=== PATIENT | male | born 1940 | race Caucasian/White ===

== ENCOUNTER 2020-11-04 09:22 | Emergency (ER) | payer MEDICARE, BC ==
--- NOTE | 2020-11-04 09:55 | ED ---
General Adult HPI - General Chief complaint: ENT Stated complaint: sore in throat/congestion Time Seen by Provider: 11/04/20 09:40 Source: patient, family, RN notes reviewed Mode of arrival: wheelchair Limitations: physical limitation - History of Present Illness Initial comments: Patient's an 79-year-old male presented to the emergency room today with chief complaint of possible infection to his tongue. Patient does admit that yesterday he noticed some soreness and tenderness to the right back of his tongue. Patient states that it's very tender with trying to eat breakfast this morning. He felt that he could not eat his meal because the pain. He has not the pains improved. Patient states isn't been able tolerate secretions. He does have a history of a lot of phlegm it's produced and does use machine at home helps. Patient states he did use at this morning which did give him some relief. He denies any complaints or symptoms currently. - Related Data Previous Rx's Medication Instructions Recorded Amoxicillin/Potassium Clav 1 each PO Q12HR #20 tab 11/04/20 [Augmentin 875-125 Tablet] Allergies Allergy/AdvReac Type Severity Reaction Status Date / Time No Known Allergies Allergy Verified 11/04/20 09:31 Review of Systems ROS Statement: Those systems with pertinent positive or pertinent negative responses have been documented in the HPI. ROS Other: All systems not noted in ROS Statement are negative. Past Medical History Past Medical History: COPD Additional Past Medical History / Comment(s): mesothelioma History of Any Multi-Drug Resistant Organisms: None Reported Past Surgical History: Adenoidectomy, Tonsillectomy Additional Past Surgical History / Comment(s): lobectomy Past Psychological History: No Psychological Hx Reported Smoking Status: Current every day smoker Past Alcohol Use History: None Reported Past Drug Use History: None Reported General Exam - General Exam Comments Initial Comments: General: The patient is awake and alert, in no distress, and does not appear acutely ill. Eye: extra-ocular movements are intact. There is normal conjunctiva bilaterally. No signs of icterus. Ears, nose, mouth and throat: There are moist mucous membranes. Patient does have an area of redness to the right posterior aspect of the tongue. Does have tenderness to palpate the area. Is soft. Tolerates oral secretions. Neck: The neck is supple Cardiovascular: There is a regular rate and rhythm. No murmur, rub or gallop is appreciated. Respiratory: Decreased lung sounds. Musculoskeletal: Normal ROM, no tenderness. Strength 5/5. Sensation intact. Neurological: A&O x 3. CN II-XII intact, There are no obvious motor or sensory deficits. Coordination appears grossly intact. Speech is normal. Skin: Skin is warm and dry and no rashes or lesions are noted. Psychiatric: Cooperative, appropriate mood & affect, normal judgment. Limitations: physical limitation Course Vital Signs 11/04/20 11/04/20 11/04/20 09:25 10:37 10:47 Temperature 98.9 F Pulse Rate 90 80 84 Respiratory 20 Rate Blood Pressure 129/70 O2 Sat by Pulse 91 L Oximetry Medical Decision Making - Medical Decision Making Patient reexamined his resting comfortable. Patient denies any increased shortness breath. He states he does have breathing treatments and oxygen at home. Patient was concerned about the pain to the right side of the tongue. There is no significant swelling. There is small red spot that is tender palpation. Patient does admit that symptoms have improved since this morning. Was discussed about starting antibiotic. Was discussed about admission. He has declined. Patient will be started on antibiotics advised close follow-up the family doctor the next 2 days. He is advised return if any symptoms increase or worsen or fail concerns. He states understanding and is. Disposition Clinical Impression: Tongue infection Disposition: HOME SELF-CARE Condition: Good Instructions (If sedation given, give patient instructions): Dental Abscess (ED) Additional Instructions: Please use medication as discussed. Please follow-up with family doctor in the next 2 days . Please return to emergency room if the symptoms increase or worsen or for any other concerns. Prescriptions: Amoxicillin/Potassium Clav [Augmentin 875-125 Tablet] 1 each PO Q12HR #20 tab Is patient prescribed a controlled substance at d/c from ED?: No Referrals: Jewell Zamora MD [Primary Care Provider] - 1-2 days Time of Disposition: 11:14
[2020-11-04] MEDS ORDERED: IPRATROPIUM-ALBUTEROL 3 ML NEB INHALATION STA (10:15)
--- NOTE | 2020-11-04 10:39 | XR ---
EXAMINATION TYPE: XR chest 2V DATE OF EXAM: 11/04/2020 COMPARISON: 09/14/2012 HISTORY: Shortness of breath TECHNIQUE: Frontal and lateral views of the chest are obtained. FINDINGS: Scattered senescent parenchymal changes noted. Hyperinflation compatible with COPD. No evidence for infiltrate. No evidence for atelectasis. Calcified pleural plaques are seen bilateral ly. Heart size is stable. Mediastinal structures are stable and grossly unremarkable. No evidence for hilar prominence. Degenerative changes dorsal spine. IMPRESSION: 1. No evidence for acute pulmonary disease.
[2020-11-04 11:29] VITALS: BP 128/78; PULSE 97; RESP 18; TEMP 98.7
== END 2020-11-04 11:28 | disposition home or self-care (01) ==
LOC: EC 09:22
DX: K14.0 Glossitis (principal); F17.200 Nicotine dependence, unspecified, uncomplicated
CPT/HCPCS: 71046; 94640; 99283

== ENCOUNTER 2020-12-03 10:09 | Inpatient (IN) | payer MEDICARE, BC ==
[2020-12-03 10:35] LABS: Glucose,Whole Blood 156 mg/dL (75-99)
--- NOTE | 2020-12-03 10:35 | ED ---
General Adult HPI - General Chief complaint: Neuro Symptoms/Deficit Stated complaint: trouble walking/falls/confusion Time Seen by Provider: 12/03/20 10:22 Source: family Mode of arrival: wheelchair Limitations: physical limitation - History of Present Illness Initial comments: Dictation was produced using [employer] dictation software. please excuse any grammatical, word or spelling errors. This patient was cared for during a federal and state declared state of emergency secondary to Covid 19 Chief Complaint: 80-year-old male past medical history of COPD and mesothelioma presents with worsening weakness, frequent falls and altered mental status History of Present Illness: 80-year-old male he lives at home with his was also advanced in age. Patient has history of COPD. at bedside provides history of present illness. She states that over the last 1-2 weeks has been having worsening generalized weakness, altered mental status and confusion. She describes it as difficulties perform his activities of daily living. Patient has also been having difficulties urinating. Patient states that his primary complaint is generalized weakness. Does not have any formal diagnosis of dementia. knows that one example of his confusion is he would get up to go to his office at 3 AM in the morning which she doesn't normally do until 6 in the morning. reports that he fell recently and was found to bathroom on th e ground. The ROS documented in this emergency department record has been reviewed and confirmed by me. Those systems with pertinent positive or negative responses have been documented in the HPI. All other systems are other negative and/or noncontributory. PHYSICAL EXAM: General Impression: Alert and oriented x3, not in acute distress HEENT: Normocephalic atraumatic, extra-ocular movements intact, pupils equal and reactive to light bilaterally, mucous membranes moist. Cardiovascular: Heart regular rate and rhythm Chest: Able to complete full sentences, no retractions, no tachypnea Abdomen: abdomen soft, non-tender, non-distended, no organomegaly Musculoskeletal: Pulses present and equal in all extremities, no peripheral edema Motor: no focal deficits noted Neurological: CN II-XII grossly intact, no focal motor or sensory deficits noted Skin: Intact with no visualized rashes Psych: Normal affect and mood ED course:80-year-old male presents with generalized weakness, dizziness, urinary difficulties frequent falls. Vital signs upon arrival shows her to 112, rest of vital signs within acceptable limits. Patient was unable to urinate. Bladder scan shows 720 mL of urine. Richarsd catheter was placed. For urinary retention. Laboratory evaluation obtained. Mild leukocytosis of 11.1, hemoglobin of 11.6. Coag panel is negative. Metabolic panel shows sodium 153, elevated renal markers which appear to be baseline. Rest of labs unremarkable. Urinalysis negative. Coronal virus is negative computed tomography scan of the brain pelvis and chest x-ray shows no acute processes. I believe patient's symptoms are secondary to dehydration. Given the patient's a symptomatic I'll have him admitted. Case was discussed with Dr. Dr. Serrano willing to accept patients care. And had a Richards placed. Urology will be consulted. EKG interpretation: Ventricular rate 103, sinus tachycardia, RI interval 136, QRS 82, QTC 419. No RI prolongation, no QTC prolongation, no ST or T-wave changes noted. . Overall, this EKG is unremarkable - Related Data Home Medications Medication Instructions Recorded Confirmed Albuterol Nebulized [Ventolin 2.5 mg INHALATION RT-QID PRN 12/03/20 12/03/20 Nebulized] Budesonide/Formoterol Fumarate 2 puff INHALATION RT-BID 12/03/20 12/03/20 [Symbicort 160-4.5 Mcg Inhaler] Furosemide [Lasix] 40 mg PO BID 12/03/20 12/03/20 Glycopyrrolate/Neb.accessories 25 mcg INHALATION RT-BID 12/03/20 12/03/20 [[place]a Magnair 25 Mcg Refill] Ipratropium Nebulized [Atrovent 0.5 mg INHALATION RT-QID PRN 12/03/20 12/03/20 Nebulized 0.2 MG/ML] Ipratropium/Albuter 20-100Mcg 1 puff INHALATION RT-QID PRN 12/03/20 12/03/20 [Combivent Respimat 20-100Mcg Inhaler] Latanoprost [Xalatan 0.005%] 1 drop BOTH EYES HS 12/03/20 12/03/20 Losartan-Hctz 50-12.5 mg [Hyzaar 1 tab PO DAILY 12/03/20 12/03/20 50-12.5] Potassium Chloride ER [K-Dur 20] 20 meq PO BID 12/03/20 12/03/20 Tamsulosin HCl [Flomax] 0.4 mg PO DAILY 12/03/20 12/03/20 Tiotropium [place] [Spiriva] 1 cap INHALATION RT-DAILY 12/03/20 12/03/20 Vit C/E/Zn/Coppr/Lutein/Zeaxan 1 cap PO DAILY 12/03/20 12/03/20 [Preservision Areds 2 Softgel] Allergies Allergy/AdvReac Type Severity Reaction Status Date / Time No Known Allergies Allergy Verified 12/03/20 11:42 Review of Systems ROS Statement: Those systems with pertinent positive or pertinent negative responses have been documented in the HPI. ROS Other: All systems not noted in ROS Statement are negative. Past Medical History Past Medical History: COPD Additional Past Medical History / Comment(s): mesothelioma History of Any Multi-Drug Resistant Organisms: None Reported Past Surgical History: Adenoidectomy, Tonsillectomy Additional Past Surgical History / Comment(s): lobectomy Past Psychological History: No Psychological Hx Reported Smoking Status: Current every day smoker Past Alcohol Use History: None Reported Past Drug Use History: None Reported General Exam Limitations: physical limitation Course Vital Signs 12/03/20 12/03/20 12/03/20 10:11 11:27 12:00 Temperature 98.4 F Pulse Rate 112 H 96 96 Respiratory 20 18 18 Rate Blood Pressure 116/68 112/71 116/73 O2 Sat by Pulse 96 100 100 Oximetry Medical Decision Making - Lab Data Result diagrams: 12/03/20 10:37 12/03/20 10:37 Lab Results 12/03/20 12/03/20 12/03/20 Range/Units 10:24 10:37 10:37 WBC 11.1 H (3.8-10.6) k/uL RBC 3.76 L (4.30-5.90) m/uL Hgb 11.6 L (13.0-17.5) gm/dL Hct 36.9 L (39.0-53.0) % MCV 98.2 (80.0-100.0) fL MCH 31.0 (25.0-35.0) pg MCHC 31.5 (31.0-37.0) g/dL RDW 13.9 (11.5-15.5) % Plt Count 168 (150-450) k/uL MPV 9.1 Neutrophils % 84 % Lymphocytes % 9 % Monocytes % 5 % Eosinophils % 0 % Basophils % 0 % Neutrophils # 9.4 H (1.3-7.7) k/uL Lymphocytes # 1.1 (1.0-4.8) k/uL Monocytes # 0.5 (0-1.0) k/uL Eosinophils # 0.0 (0-0.7) k/uL Basophils # 0.0 (0-0.2) k/uL PT (9.0-12.0) sec INR (<1.2) APTT (22.0-30.0) sec Sodium 153 H (137-145) mmol/L Potassium 4.2 (3.5-5.1) mmol/L Chloride 114 H (98-107) mmol/L Carbon Dioxide 32 H (22-30) mmol/L Anion Gap 7 mmol/L BUN 40 H (9-20) mg/dL Creatinine 1.94 H (0.66-1.25) mg/dL Est GFR (CKD-EPI)AfAm 36 (>60 ml/min/1.73 sqM) Est GFR (CKD-EPI)NonAf 31 (>60 ml/min/1.73 sqM) Glucose 143 H (74-99) mg/dL POC Glucose (mg/dL) 156 H (75-99) mg/dL POC Glu Rail Operator ID Mohinder Johnson Plasma Lactic Acid Adal (0.7-2.0) mmol/L Calcium 8.9 (8.4-10.2) mg/dL Magnesium 2.9 H (1.6-2.3) mg/dL Total Bilirubin 0.5 (0.2-1.3) mg/dL AST 24 (17-59) U/L ALT 19 (4-49) U/L Alkaline Phosphatase 62 (38-126) U/L Ammonia (<30) umol/L Troponin I (0.000-0.034) ng/mL Total Protein 6.4 (6.3-8.2) g/dL Albumin 3.8 (3.5-5.0) g/dL Urine Color Urine Appearance (Clear) Urine pH (5.0-8.0) Ur Specific [place] (1.001-1.035) Urine Protein (Negative) Urine Glucose (UA) (Negative) Urine Ketones (Negative) Urine Blood (Negative) Urine Nitrite (Negative) Urine Bilirubin (Negative) Urine Urobilinogen (<2.0) mg/dL Ur Leukocyte Esterase (Negative) Coronavirus (PCR) (Not Detectd) 12/03/20 12/03/20 12/03/20 Range/Units 10:37 10:37 10:45 WBC (3.8-10.6) k/uL RBC (4.30-5.90) m/uL Hgb (13.0-17.5) gm/dL Hct (39.0-53.0) % MCV (80.0-100.0) fL MCH (25.0-35.0) pg MCHC (31.0-37.0) g/dL RDW (11.5-15.5) % Plt Count (150-450) k/uL MPV Neutrophils % % Lymphocytes % % Monocytes % % Eosinophils % % Basophils % % Neutrophils # (1.3-7.7) k/uL Lymphocytes # (1.0-4.8) k/uL Monocytes # (0-1.0) k/uL Eosinophils # (0-0.7) k/uL Basophils # (0-0.2) k/uL PT (9.0-12.0) sec INR (<1.2) APTT (22.0-30.0) sec Sodium (137-145) mmol/L Potassium (3.5-5.1) mmol/L Chloride (98-107) mmol/L Carbon Dioxide (22-30) mmol/L Anion Gap mmol/L BUN (9-20) mg/dL Creatinine (0.66-1.25) mg/dL Est GFR (CKD-EPI)AfAm (>60 ml/min/1.73 sqM) Est GFR (CKD-EPI)NonAf (>60 ml/min/1.73 sqM) Glucose (74-99) mg/dL POC Glucose (mg/dL) (75-99) mg/dL POC Glu Rail Operator ID Plasma Lactic Acid Adal 1.3 (0.7-2.0) mmol/L Calcium (8.4-10.2) mg/dL Magnesium (1.6-2.3) mg/dL Total Bilirubin (0.2-1.3) mg/dL AST (17-59) U/L ALT (4-49) U/L Alkaline Phosphatase (38-126) U/L Ammonia <9 (<30) umol/L Troponin I 0.030 (0.000-0.034) ng/mL Total Protein (6.3-8.2) g/dL Albumin (3.5-5.0) g/dL Urine Color Light Yellow Urine Appearance Clear (Clear) Urine pH 5.0 (5.0-8.0) Ur Specific [place] 1.011 (1.001-1.035) Urine Protein Negative (Negative) Urine Glucose (UA) Negative (Negative) Urine Ketones Negative (Negative) Urine Blood Negative (Negative) Urine Nitrite Negative (Negative) Urine Bilirubin Negative (Negative) Urine Urobilinogen <2.0 (<2.0) mg/dL Ur Leukocyte Esterase Negative (Negative) Coronavirus (PCR) (Not Detectd) 12/03/20 12/03/20 Range/Units 11:11 11:29 WBC (3.8-10.6) k/uL RBC (4.30-5.90) m/uL Hgb (13.0-17.5) gm/dL Hct (39.0-53.0) % MCV (80.0-100.0) fL MCH (25.0-35.0) pg MCHC (31.0-37.0) g/dL RDW (11.5-15.5) % Plt Count (150-450) k/uL MPV Neutrophils % % Lymphocytes % % Monocytes % % Eosinophils % % Basophils % % Neutrophils # (1.3-7.7) k/uL Lymphocytes # (1.0-4.8) k/uL Monocytes # (0-1.0) k/uL Eosinophils # (0-0.7) k/uL Basophils # (0-0.2) k/uL PT 10.2 (9.0-12.0) sec INR 0.9 (<1.2) APTT 24.0 (22.0-30.0) sec Sodium (137-145) mmol/L Potassium (3.5-5.1) mmol/L Chloride (98-107) mmol/L Carbon Dioxide (22-30) mmol/L Anion Gap mmol/L BUN (9-20) mg/dL Creatinine (0.66-1.25) mg/dL Est GFR (CKD-EPI)AfAm (>60 ml/min/1.73 sqM) Est GFR (CKD-EPI)NonAf (>60 ml/min/1.73 sqM) Glucose (74-99) mg/dL POC Glucose (mg/dL) (75-99) mg/dL POC Glu Rail Operator ID Plasma Lactic Acid Adal (0.7-2.0) mmol/L Calcium (8.4-10.2) mg/dL Magnesium (1.6-2.3) mg/dL Total Bilirubin (0.2-1.3) mg/dL AST (17-59) U/L ALT (4-49) U/L Alkaline Phosphatase (38-126) U/L Ammonia (<30) umol/L Troponin I (0.000-0.034) ng/mL Total Protein (6.3-8.2) g/dL Albumin (3.5-5.0) g/dL Urine Color Urine Appearance (Clear) Urine pH (5.0-8.0) Ur Specific [place] (1.001-1.035) Urine Protein (Negative) Urine Glucose (UA) (Negative) Urine Ketones (Negative) Urine Blood (Negative) Urine Nitrite (Negative) Urine Bilirubin (Negative) Urine Urobilinogen (<2.0) mg/dL Ur Leukocyte Esterase (Negative) Coronavirus (PCR) Not Detected (Not Detectd) Disposition Clinical Impression: Hypernatremia, Dehydration, Urinary retention Disposition: ADMITTED IP TO THIS [facility] Condition: Fair Referrals: Jewell Zamora MD [Primary Care Provider] - 1-2 days Decision Time: 12:35
[2020-12-03 11:04] LABS: Appearance,Urine Clear (Clear); Bilirubin,Urine Negative (Negative); Blood,Urine Negative (Negative); Color,Urine Light Yellow; Glucose,Urine (UA) Negative (Negative); Ketones,Urine Negative (Negative); Leukocyte Esterase,Urine Negative (Negative); Nitrite,Urine Negative (Negative); Protein,Urine Negative (Negative); Specific Gravity,Urine 1.011 (1.001-1.035); Urobilinogen,Urine <2.0 mg/dL (<2.0)
[2020-12-03 11:08] LABS: Basophils % (A) 0 %; Eosinophils % (A) 0 %; HCT 36.9 % (39.0-53.0); HGB 11.6 gm/dL (13.0-17.5); Lymphocytes # (A) 1.1 k/uL (1.0-4.8); Lymphocytes % (A) 9 %; MCHC 31.5 g/dL (31.0-37.0); MCV 98.2 fL (80.0-100.0); Mean Platelet Volume 9.1; Monocytes # (A) 0.5 k/uL (0-1.0); Monocytes % (A) 5 %; Neutrophils # (A) 9.4 k/uL (1.3-7.7); Neutrophils % (A) 84 %; Platelet Count 168 k/uL (150-450); RBC 3.76 m/uL (4.30-5.90); RDW 13.9 % (11.5-15.5); WBC 11.1 k/uL (3.8-10.6)
[2020-12-03 11:13] LABS: INR 0.9 (<1.2); Prothrombin Time 10.2 sec (9.0-12.0)
[2020-12-03 11:17] LABS: Lactic Acid, Venous 1.3 mmol/L (0.7-2.0)
[2020-12-03 11:18] LABS: Albumin 3.8 g/dL (3.5-5.0); Calcium 8.9 mg/dL (8.4-10.2); Magnesium 2.9 mg/dL (1.6-2.3); Potassium 4.2 mmol/L (3.5-5.1); Total Bilirubin 0.5 mg/dL (0.2-1.3); Total Protein 6.4 g/dL (6.3-8.2)
--- NOTE | 2020-12-03 11:28 | XR ---
EXAMINATION TYPE: XR chest 1V portable DATE OF EXAM: 12/03/2020 COMPARISON: Chest x-ray November 04, 2020 HISTORY: Fall injury with pain. TECHNIQUE: Single frontal view of the chest is obtained. FINDINGS: Background chronic parenchymal and pulmonary fibrotic changes along with calcified pleural plaques. There is persistent small left pleural effusion or pleural thickening. Background bilateral central calcified nodules or granulomas. Background left hilar surgical clips along with left-sided volume loss and mediastinal shift. No new focal airspace opacity pneumothorax clearly seen. The cardi ac silhouette size is stable and upper limits of normal with atherosclerotic aorta. The osseous str uctures are intact. Azygos lobe/fissure is redemonstrated. IMPRESSION: Chronic changes as detailed above without new acute pulmonary process. No significant ch mary from prior.
[2020-12-03] MEDS ORDERED: SODIUM CHLORIDE 0.9% 1,000 ML IV STA ×2 (11:36)
--- NOTE | 2020-12-03 11:37 | XR ---
EXAMINATION TYPE: XR pelvis AP view DATE OF EXAM: 12/03/2020 CLINICAL HISTORY: Frequent falls with pain TECHNIQUE: A single AP view of the pelvis is obtained. COMPARISON: None. FINDINGS: Osseous structures are demineralized which is noted to lower radiographic sensitivity. In addition there is prominence of fecal material overlying the pelvis making evaluation suboptimal. Pat ient has also rotated making evaluation suboptimal. There is no acute displaced fracture clearly evid ent in the pelvis. The pubic symphysis is intact. Asymmetric severe left hip axial joint space loss w ith sclerosis in the femoral head. Sacroiliac joints are likely within normal limits. Overlying vascu lar calcification phleboliths noted. IMPRESSION: There is no acute displaced fractures clearly evident in the pelvis.
--- NOTE | 2020-12-03 11:57 | CT ---
EXAMINATION TYPE: CT brain nathalia rodriguez DATE OF EXAM: 12/03/2020 COMPARISON: None HISTORY: frequent falls, ams CT DLP: 1349.1 mGycm Automated exposure control for dose reduction was used. TECHNIQUE: CT scan of the head and cervical spine are performed without contrast. FINDINGS: There is no acute intracranial hemorrhage, mass effect, or midline shift identified. The ventricles and sulci are within normal limits in size. There are cerebral vascular calcifications. C ortical atrophy is noted. Periventricular white matter shows patchy low attenuation, focus of low-att enuation present in the left elva suspicious for encephalomalacia, axial image #10. The globes are i ntact and the visualized sinuses are clear. Cervical spine is visualized in its entirety from C1 through upper thoracic levels and demonstrates a nterolisthesis grade 1 C4-5, retrolisthesis grade 1 C5-6 and anterior listhesis grade 1 C7-T1 without evidence of acute fracture or dislocation. Prevertebral soft tissue appears within normal limits. T here is a spinal curvature. There is multilevel facet arthropathy, foraminal encroachment, patient is kyphotic. Multilevel spondylosis with loss of disc height present at intervertebral levels is noted. The C1-C2 articulation is unremarkable. Apical emphysema noted. IMPRESSION: 1. There is no acute fracture or dislocation evident in the cervical spine. 2. No acute intracranial hemorrhage, mass effect, or midline shift is seen.
[2020-12-03] MEDS ORDERED: NALOXONE 0.4 MG/ML 1 ML VIAL IV PRN (12:32)
[2020-12-03] MEDS ORDERED: ONDANSETRON 4 MG/2 ML VIAL IVP PRN (12:32)
[2020-12-03] MEDS ORDERED: ALBUTEROL NEBULIZED 2.5 MG/3 ML INHALATION PRN (14:04)
--- NOTE | 2020-12-03 15:25 | P.GSCN ---
History of Present Illness Consult date: 12/03/20 History of present illness: The patient is 80. He is a retired builder. He has COPD and mesothelioma. Apparently he came in the hospital for weakness. He is found to have hypernatremia. He also is in urine retention. We are asked see the patient. The patient's interviewed at the bedside with his at present. The patient for the last several months has been having problems with urinary frequency. He sleeps in a chair. Apparently he has been on tamsulosin but has not been taking. He has no other urologic history. He has an indwelling catheter with clear urine. Review of Systems ROS unobtainable: due to mental status Past Medical History Past Medical History: COPD, Prostate Disorder Additional Past Medical History / Comment(s): mesothelioma History of Any Multi-Drug Resistant Organisms: None Reported Past Surgical History: Adenoidectomy, Tonsillectomy Additional Past Surgical History / Comment(s): lobectomy Past Psychological History: No Psychological Hx Reported Smoking Status: Current every day smoker Past Alcohol Use History: None Reported Past Drug Use History: None Reported Medications and Allergies Home Medications Medication Instructions Recorded Confirmed Type Albuterol Nebulized [Ventolin 2.5 mg INHALATION RT-QID PRN 12/03/20 12/03/20 History Nebulized] Budesonide/Formoterol Fumarate 2 puff INHALATION RT-BID 12/03/20 12/03/20 History [Symbicort 160-4.5 Mcg Inhaler] Furosemide [Lasix] 40 mg PO BID 12/03/20 12/03/20 History Glycopyrrolate/Neb.accessories 25 mcg INHALATION RT-BID 12/03/20 12/03/20 History [Lonhala Magnair 25 Mcg Refill] Ipratropium Nebulized [Atrovent 0.5 mg INHALATION RT-QID PRN 12/03/20 12/03/20 History Nebulized 0.2 MG/ML] Ipratropium/Albuter 20-100Mcg 1 puff INHALATION RT-QID PRN 12/03/20 12/03/20 History [Combivent Respimat 20-100Mcg Inhaler] Latanoprost [Xalatan 0.005%] 1 drop BOTH EYES HS 12/03/20 12/03/20 History Losartan-Hctz 50-12.5 mg [Hyzaar 1 tab PO DAILY 12/03/20 12/03/20 History 50-12.5] Potassium Chloride ER [K-Dur 20] 20 meq PO BID 12/03/20 12/03/20 History Tamsulosin HCl [Flomax] 0.4 mg PO DAILY 12/03/20 12/03/20 History Tiotropium [place] [Spiriva] 1 cap INHALATION RT-DAILY 12/03/20 12/03/20 History Vit C/E/Zn/Coppr/Lutein/Zeaxan 1 cap PO DAILY 12/03/20 12/03/20 History [Preservision Areds 2 Softgel] Allergies Allergy/AdvReac Type Severity Reaction Status Date / Time No Known Allergies Allergy Verified 12/03/20 11:42 Surgical - Exam Vital Signs Temp Pulse Resp BP Pulse Ox 98.4 F 112 H 20 116/68 96 12/03/20 10:11 12/03/20 10:11 12/03/20 10:11 12/03/20 10:11 12/03/20 10:11 - General well developed, chronically ill - Eyes PERRL - ENT no hearing loss - Neck trachea midline - Respiratory normal expansion, normal respiratory effort - Cardiovascular Rhythm: regular - Abdomen Abdomen: soft, non tender - Genitourinary Indwelling catheter with clear urine, 30 g benign prostate normal penis with no external lesions, testicles present - Integumentary no rash, no growths - Neurologic normal coordination, normal sensation, memory loss - Musculoskeletal normal posture - Psychiatric oriented to person, oriented to place Results - Labs 12/03/20 10:37 12/03/20 10:37 Abnormal Lab Results - Last 24 Hours (Table) 12/03/20 12/03/20 12/03/20 Range/Units 10:24 10:37 10:37 WBC 11.1 H (3.8-10.6) k/uL RBC 3.76 L (4.30-5.90) m/uL Hgb 11.6 L (13.0-17.5) gm/dL Hct 36.9 L (39.0-53.0) % Neutrophils # 9.4 H (1.3-7.7) k/uL Sodium 153 H (137-145) mmol/L Chloride 114 H (98-107) mmol/L Carbon Dioxide 32 H (22-30) mmol/L BUN 40 H (9-20) mg/dL Creatinine 1.94 H (0.66-1.25) mg/dL Glucose 143 H (74-99) mg/dL POC Glucose (mg/dL) 156 H (75-99) mg/dL Magnesium 2.9 H (1.6-2.3) mg/dL Diabetes panel 12/03/20 Range/Units 10:37 Sodium 153 H (137-145) mmol/L Potassium 4.2 (3.5-5.1) mmol/L Chloride 114 H (98-107) mmol/L Carbon Dioxide 32 H (22-30) mmol/L BUN 40 H (9-20) mg/dL Creatinine 1.94 H (0.66-1.25) mg/dL Glucose 143 H (74-99) mg/dL Calcium 8.9 (8.4-10.2) mg/dL AST 24 (17-59) U/L ALT 19 (4-49) U/L Alkaline Phosphatase 62 (38-126) U/L Total Protein 6.4 (6.3-8.2) g/dL Albumin 3.8 (3.5-5.0) g/dL Calcium panel 12/03/20 Range/Units 10:37 Calcium 8.9 (8.4-10.2) mg/dL Albumin 3.8 (3.5-5.0) g/dL Pituitary panel 12/03/20 Range/Units 10:37 Sodium 153 H (137-145) mmol/L Potassium 4.2 (3.5-5.1) mmol/L Chloride 114 H (98-107) mmol/L Carbon Dioxide 32 H (22-30) mmol/L BUN 40 H (9-20) mg/dL Creatinine 1.94 H (0.66-1.25) mg/dL Glucose 143 H (74-99) mg/dL Calcium 8.9 (8.4-10.2) mg/dL Adrenal panel 12/03/20 Range/Units 10:37 Sodium 153 H (137-145) mmol/L Potassium 4.2 (3.5-5.1) mmol/L Chloride 114 H (98-107) mmol/L Carbon Dioxide 32 H (22-30) mmol/L BUN 40 H (9-20) mg/dL Creatinine 1.94 H (0.66-1.25) mg/dL Glucose 143 H (74-99) mg/dL Calcium 8.9 (8.4-10.2) mg/dL Total Bilirubin 0.5 (0.2-1.3) mg/dL AST 24 (17-59) U/L ALT 19 (4-49) U/L Alkaline Phosphatase 62 (38-126) U/L Total Protein 6.4 (6.3-8.2) g/dL Albumin 3.8 (3.5-5.0) g/dL Assessment and Plan Assessment: Impression: Urine retention secondary to BPH aggravated by weakness. Failure to take medication. COPD, mesothelioma. Recommendations: The patient's Flomax should be resumed. Once he is more stable medically the Richards catheter can be removed for a voiding trial. If he has further problems please contact us.
[2020-12-03] MEDS: ACETAMINOPHEN TAB 325 MG TAB PO PRN (16:28)
[2020-12-03] MEDS: IPRATROPIUM 0.5 MG/2.5 ML NEBU INHALATION SCH (20:42)
[2020-12-03] MEDS: SYMBICORT 160-4.5 MCG INHALER INHALATION SCH (20:42)
[2020-12-04] MEDS: LATANOPROST 0.005% OPHTH DROPS 2.5 ML BTL BOTH EYES SCH ×2 (00:20→19:57)
[2020-12-04] MEDS ORDERED: NON FORMULARY DRUG (Tiotropium Bromide [Spiriva] 18 MCG Cap.W.Dev) INHALATION SCH (08:00)
[2020-12-04] MEDS: IPRATROPIUM 0.5 MG/2.5 ML NEBU INHALATION SCH ×4 (08:03→19:17)
[2020-12-04] MEDS: SYMBICORT 160-4.5 MCG INHALER INHALATION SCH ×2 (08:03→19:17)
[2020-12-04] MEDS: HEPARIN SODIUM,PORCINE 5,000 UNIT/ML 1 ML VIAL SQ SCH ×3 (09:08→23:23)
[2020-12-04] MEDS: TAMSULOSIN 0.4 MG CAP.ER.24H PO SCH (09:09)
[2020-12-04] MEDS: VIT A,C & E-LUTEIN-MINERALS 1 EACH TAB PO SCH (09:09)
[2020-12-04] MEDS: SODIUM CHLORIDE 0.9% 1,000 ML IV SCH (09:34)
[2020-12-04] MEDS: AMPICILLIN-SULBACTAM 1.5 GM in SODIUM CHLORIDE 0.9% 50 ML IVPB SCH ×2 (09:38→19:58)
[2020-12-04 11:11] LABS: Basophils # (A) 0.02 X 10*3/uL (0.00-0.10); Basophils % (A) 0.2 %; Eosinophils # (A) 0.04 X 10*3/uL (0.04-0.35); Eosinophils % (A) 0.3 %; HCT 35.1 % (39.6-50.0); HGB 10.6 g/dL (13.0-17.0); Lymphocytes # (A) 0.87 X 10*3/uL (0.90-5.00); Lymphocytes % (A) 7.1 %; MCH 31.1 pg (27.0-32.0); MCHC 30.2 g/dL (32.0-37.0); MCV 102.9 fL (80.0-97.0); Mean Platelet Volume 12.4 fL (9.5-12.2); Monocytes # (A) 0.64 X 10*3/uL (0.20-1.00); Monocytes % (A) 5.3 %; Neutrophils # (A) 10.53 X 10*3/uL (1.80-7.70); Neutrophils % (A) 86.5 %; Platelet Count 162 X 10*3/uL (140-440); RBC 3.41 X 10*6/uL (4.40-5.60); RDW 13.9 % (11.5-14.5); WBC 12.17 X 10*3/uL (4.50-10.00)
[2020-12-04 12:58] LABS: African American GFR (CKD) 42.6 (60.0-200.0); Albumin 3.5 g/dL (3.80-4.90); Albumin/Globulin Ratio 1.59 (1.60-3.17); Anion Gap 7.1 mmol/L (4.00-12.00); BUN/Creat Ratio 20.59 Ratio (12.00-20.00); Calcium 8.5 mg/dL (8.7-10.3); Carbon Dioxide 29.9 mmol/L (21.6-31.8); Globulin 2.2 g/dL (1.6-3.3); Non-African American GFR(CKD) 36.7 (60.0-200.0); Potassium 4.1 mmol/L (3.5-5.5); Total Bilirubin 0.4 mg/dL (0.2-1.2); Total Protein 5.7 g/dL (6.2-8.2)
[2020-12-05] MEDS: SODIUM CHLORIDE 0.9% 1,000 ML IV SCH ×2 (06:02→12:15)
[2020-12-05] MEDS: HEPARIN SODIUM,PORCINE 5,000 UNIT/ML 1 ML VIAL SQ SCH (06:58)
--- NOTE | 2020-12-05 06:59 | P.PN ---
Subjective Progress Note Date: 12/05/20 The patient is in the hospital for dehydration and urinary retention. The patient was disoriented last night and pulled his catheter out. Is been replaced. The urine is pink up. Nothing further needs to be done at this point in time. When the patient is medically stable a voiding trial may be instituted now that he started back on his tamsulosin. Objective - Vital Signs Vital signs: Vital Signs Temp 98.7 F 12/05/20 02:13 Pulse 95 12/05/20 02:13 Resp 19 12/05/20 02:13 BP 116/64 12/05/20 02:13 Pulse Ox 95 12/05/20 02:13 Intake & Output 12/04/20 12/04/20 12/05/20 06:59 18:59 06:59 Intake Total 650 Output Total 550 1250 Balance -550 650 -1250 Weight 68.039 kg Intake: IV 650 Ampicillin-Sulbactam 1.5 50 gm In Sodium Chloride 0.9 % 50 ml @ 100 mls/hr IVPB Q12HR [facility] Rx#:[id number] Sodium Chloride 0.9% 1, 600 000 ml @ 75 mls/hr IV . [id number] [facility] Rx#:[id number] Output: Urine 550 1250 Other: Voiding Method Indwelling Catheter Indwelling Catheter - Labs CBC & Chem 7: 12/04/20 08:08 12/04/20 08:08 Labs: Abnormal Lab Results - Last 24 Hours (Table) 12/04/20 12/04/20 Range/Units 08:08 08:08 WBC 12.17 H (4.50-10.00) X 10*3/uL RBC 3.41 L (4.40-5.60) X 10*6/uL Hgb 10.6 L (13.0-17.0) g/dL Hct 35.1 L (39.6-50.0) % MCV 102.9 H (80.0-97.0) fL MCHC 30.2 L (32.0-37.0) g/dL MPV 12.4 H (9.5-12.2) fL Immature Gran # 0.07 H (0.00-0.04) X 10*3/uL Neutrophils # 10.53 H (1.80-7.70) X 10*3/uL Lymphocytes # 0.87 L (0.90-5.00) X 10*3/uL Sodium 156 H (135-145) mmol/L Chloride 119 H (96-109) mmol/L BUN 35.0 H (9.0-27.0) mg/dL Creatinine 1.7 H (0.6-1.5) mg/dL Est GFR (CKD-EPI)AfAm 42.6 L (60.0-200.0) Est GFR (CKD-EPI)NonAf 36.7 L (60.0-200.0) BUN/Creatinine Ratio 20.59 H (12.00-20.00) Ratio Glucose 132 H (70-110) mg/dL Calcium 8.5 L (8.7-10.3) mg/dL Total Protein 5.7 L (6.2-8.2) g/dL Albumin 3.50 L (3.80-4.90) g/dL Albumin/Globulin Ratio 1.59 L (1.60-3.17) g/dL
[2020-12-05] MEDS: TAMSULOSIN 0.4 MG CAP.ER.24H PO SCH (08:18)
[2020-12-05] MEDS: VIT A,C & E-LUTEIN-MINERALS 1 EACH TAB PO SCH (08:18)
[2020-12-05] MEDS: AMPICILLIN-SULBACTAM 1.5 GM in SODIUM CHLORIDE 0.9% 50 ML IVPB SCH ×2 (08:18→16:16)
[2020-12-05] MEDS: SYMBICORT 160-4.5 MCG INHALER INHALATION SCH ×2 (08:24→20:03)
[2020-12-05] MEDS: IPRATROPIUM 0.5 MG/2.5 ML NEBU INHALATION SCH ×4 (08:24→20:03)
[2020-12-05 11:08] LABS: Basophils # (A) 0.03 X 10*3/uL (0.00-0.10); Basophils % (A) 0.3 %; Eosinophils # (A) 0.02 X 10*3/uL (0.04-0.35); Eosinophils % (A) 0.2 %; HCT 34.4 % (39.6-50.0); HGB 10.2 g/dL (13.0-17.0); Lymphocytes # (A) 0.88 X 10*3/uL (0.90-5.00); Lymphocytes % (A) 7.5 %; MCH 30.3 pg (27.0-32.0); MCHC 29.7 g/dL (32.0-37.0); MCV 102.1 fL (80.0-97.0); Mean Platelet Volume 12.5 fL (9.5-12.2); Monocytes # (A) 0.76 X 10*3/uL (0.20-1.00); Monocytes % (A) 6.5 %; Neutrophils # (A) 9.98 X 10*3/uL (1.80-7.70); Platelet Count 162 X 10*3/uL (140-440); RBC 3.37 X 10*6/uL (4.40-5.60); RDW 13.7 % (11.5-14.5); WBC 11.73 X 10*3/uL (4.50-10.00)
[2020-12-05 11:27] LABS: African American GFR (CKD) 53.8 (60.0-200.0); Albumin 3.3 g/dL (3.80-4.90); Albumin/Globulin Ratio 1.65 (1.60-3.17); Anion Gap 10.4 mmol/L (4.00-12.00); BUN/Creat Ratio 20.71 Ratio (12.00-20.00); Calcium 7.9 mg/dL (8.7-10.3); Carbon Dioxide 25.6 mmol/L (21.6-31.8); Non-African American GFR(CKD) 46.5 (60.0-200.0); Potassium 3.9 mmol/L (3.5-5.5); Total Bilirubin 0.4 mg/dL (0.2-1.2); Total Protein 5.3 g/dL (6.2-8.2)
[2020-12-05] MEDS: ACETAMINOPHEN TAB 325 MG TAB PO PRN ×2 (12:15→23:02)
--- NOTE | 2020-12-05 17:40 | P.GSCN ---
History of Present Illness Consult date: 12/05/20 Reason for Consult: Dental abscess. Requesting physician: Jewell Zamora History of present illness: 80-year-old male history of COPD mesothelioma and presented to hospital with worsening weakness frequent falls and altered mental status. Patient came into the hospital on December 03. Reports the patient was found on the bathroom recently after a fall. Son helped him up. was at the bedside gave history. Patient was difficult to arouse. Appeared to have some breathing trouble. denies formal history of diagnosis of dementia. Review of Systems ROS unobtainable: due to mental status Past Medical History Past Medical History: COPD, Prostate Disorder Additional Past Medical History / Comment(s): Mesothelioma History of Any Multi-Drug Resistant Organisms: None Reported Past Surgical History: Adenoidectomy, Tonsillectomy Additional Past Surgical History / Comment(s): Left lobectomy Past Anesthesia/Blood Transfusion Reactions: No Reported Reaction Past Psychological History: No Psychological Hx Reported Smoking Status: Current every day smoker Past Alcohol Use History: None Reported Past Drug Use History: None Reported Medications and Allergies Home Medications Medication Instructions Recorded Confirmed Type Albuterol Nebulized [Ventolin 2.5 mg INHALATION RT-QID PRN 12/03/20 12/03/20 History Nebulized] Budesonide/Formoterol Fumarate 2 puff INHALATION RT-BID 12/03/20 12/03/20 History [Symbicort 160-4.5 Mcg Inhaler] Furosemide [Lasix] 40 mg PO BID 12/03/20 12/03/20 History Glycopyrrolate/Neb.accessories 25 mcg INHALATION RT-BID 12/03/20 12/03/20 History [Lonhala Magnair 25 Mcg Refill] Ipratropium Nebulized [Atrovent 0.5 mg INHALATION RT-QID PRN 12/03/20 12/03/20 History Nebulized 0.2 MG/ML] Ipratropium/Albuter 20-100Mcg 1 puff INHALATION RT-QID PRN 12/03/20 12/03/20 History [Combivent Respimat 20-100Mcg Inhaler] Latanoprost [Xalatan 0.005%] 1 drop BOTH EYES HS 12/03/20 12/03/20 History Losartan-Hctz 50-12.5 mg [Hyzaar 1 tab PO DAILY 12/03/20 12/03/20 History 50-12.5] Potassium Chloride ER [K-Dur 20] 20 meq PO BID 12/03/20 12/03/20 History Tamsulosin HCl [Flomax] 0.4 mg PO DAILY 12/03/20 12/03/20 History Tiotropium [place] [Spiriva] 1 cap INHALATION RT-DAILY 12/03/20 12/03/20 History Vit C/E/Zn/Coppr/Lutein/Zeaxan 1 cap PO DAILY 12/03/20 12/03/20 History [Preservision Areds 2 Softgel] Allergies Allergy/AdvReac Type Severity Reaction Status Date / Time No Known Allergies Allergy Verified 12/03/20 11:42 Surgical - Exam Vital Signs Temp Pulse Resp BP Pulse Ox 98.4 F 112 H 20 116/68 96 12/03/20 10:11 12/03/20 10:11 12/03/20 10:11 12/03/20 10:11 12/03/20 10:11 Noted less than 1 cm fluctuant swelling of the right vestibule near the posterior molars. No pus noted. Patient's able to open fully. No floor of mouth swelling. No submandibular swelling noted. Results Head CT does not show teeth. - Labs 12/05/20 07:16 12/05/20 07:16 Abnormal Lab Results - Last 24 Hours (Table) 12/05/20 12/05/20 Range/Units 07:16 07:16 WBC 11.73 H (4.50-10.00) X 10*3/uL RBC 3.37 L (4.40-5.60) X 10*6/uL Hgb 10.2 L (13.0-17.0) g/dL Hct 34.4 L (39.6-50.0) % MCV 102.1 H (80.0-97.0) fL MCHC 29.7 L (32.0-37.0) g/dL MPV 12.5 H (9.5-12.2) fL Immature Gran # 0.06 H (0.00-0.04) X 10*3/uL Neutrophils # 9.98 H (1.80-7.70) X 10*3/uL Lymphocytes # 0.88 L (0.90-5.00) X 10*3/uL Eosinophils # 0.02 L (0.04-0.35) X 10*3/uL Sodium 153 H (135-145) mmol/L Chloride 117 H (96-109) mmol/L BUN 29.0 H (9.0-27.0) mg/dL Est GFR (CKD-EPI)AfAm 53.8 L (60.0-200.0) Est GFR (CKD-EPI)NonAf 46.5 L (60.0-200.0) BUN/Creatinine Ratio 20.71 H (12.00-20.00) Ratio Calcium 7.9 L (8.7-10.3) mg/dL Total Protein 5.3 L (6.2-8.2) g/dL Albumin 3.30 L (3.80-4.90) g/dL Diabetes panel 12/05/20 Range/Units 07:16 Sodium 153 H (135-145) mmol/L Potassium 3.9 (3.5-5.5) mmol/L Chloride 117 H (96-109) mmol/L Carbon Dioxide 25.6 (21.6-31.8) mmol/L BUN 29.0 H (9.0-27.0) mg/dL Creatinine 1.4 (0.6-1.5) mg/dL Glucose 93 (70-110) mg/dL Calcium 7.9 L (8.7-10.3) mg/dL AST 15 (14-35) U/L ALT 13 (10-49) U/L Alkaline Phosphatase 58 (41-126) U/L Total Protein 5.3 L (6.2-8.2) g/dL Albumin 3.30 L (3.80-4.90) g/dL Calcium panel 12/05/20 Range/Units 07:16 Calcium 7.9 L (8.7-10.3) mg/dL Albumin 3.30 L (3.80-4.90) g/dL Pituitary panel 12/05/20 Range/Units 07:16 Sodium 153 H (135-145) mmol/L Potassium 3.9 (3.5-5.5) mmol/L Chloride 117 H (96-109) mmol/L Carbon Dioxide 25.6 (21.6-31.8) mmol/L BUN 29.0 H (9.0-27.0) mg/dL Creatinine 1.4 (0.6-1.5) mg/dL Glucose 93 (70-110) mg/dL Calcium 7.9 L (8.7-10.3) mg/dL Adrenal panel 12/05/20 Range/Units 07:16 Sodium 153 H (135-145) mmol/L Potassium 3.9 (3.5-5.5) mmol/L Chloride 117 H (96-109) mmol/L Carbon Dioxide 25.6 (21.6-31.8) mmol/L BUN 29.0 H (9.0-27.0) mg/dL Creatinine 1.4 (0.6-1.5) mg/dL Glucose 93 (70-110) mg/dL Calcium 7.9 L (8.7-10.3) mg/dL Total Bilirubin 0.4 (0.2-1.2) mg/dL AST 15 (14-35) U/L ALT 13 (10-49) U/L Alkaline Phosphatase 58 (41-126) U/L Total Protein 5.3 L (6.2-8.2) g/dL Albumin 3.30 L (3.80-4.90) g/dL Assessment and Plan Assessment: Dental abscess of the right mandibular vestibular space. Appears to be contained to this area. Plan: Plan to get the imaging of the right jaw. Patient is known to me and is actually scheduled to have these teeth removed the day after he was admitted to the hospital. At this point with the abscess local anesthesia will be difficult. His medical stability for an anesthetic will need to be discussed with his physician. The pros and cons of treatment at this point were discussed with his . Time with Patient: Greater than 30 (Difficult exam and long discussion with .)
--- NOTE | 2020-12-05 19:33 | CT ---
EXAMINATION TYPE: CT [facility] DATE OF EXAM: 12/05/2020 COMPARISON: CT brain 2 days ago HISTORY: Facial pain and swelling. CT DLP: 45 mGycm Automated exposure control for dose reduction was used. CT facial bones without contrast. 3-D [facility] . FINDINGS: Mandible is intact. No acute fracture or dislocation. Temporomandibular joints are maintain ed bilaterally. Visualized paranasal sinuses are clear. [id number] soft tissue swelling along course of the inferior mandible greater on the right. No well-formed thick-walled fluid collection or drainable abscess. There is artifact from metallic hardw are in the bilateral maxillary and mandibular teeth making evaluation suboptimal. Several lucent area s suspicious for recurrent dental infections are noted for reference right maxillary tooth coronal im age 21. Tiny focus of fluid and air is felt present at this level coronal image 21. Airway remains patent. Moderate to severe calcified plaque bilateral carotid bulb level. Exaggerated cervical curvature. IMPRESSION: As above.
[2020-12-05 19:36] LABS: Basophils % (A) 0 %; Eosinophils % (A) 0 %; HCT 30.8 % (39.0-53.0); Lymphocytes # (A) 0.6 k/uL (1.0-4.8); Lymphocytes % (A) 5 %; MCH 31.2 pg (25.0-35.0); MCV 97.4 fL (80.0-100.0); Mean Platelet Volume 9.3; Monocytes # (A) 0.6 k/uL (0-1.0); Monocytes % (A) 4 %; Neutrophils # (A) 11.7 k/uL (1.3-7.7); Neutrophils % (A) 90 %; Platelet Count 137 k/uL (150-450); RBC 3.17 m/uL (4.30-5.90); RDW 13.5 % (11.5-15.5)
[2020-12-05 19:45] LABS: HGB 9.9 gm/dL (13.0-17.5)
[2020-12-05] MEDS: LATANOPROST 0.005% OPHTH DROPS 2.5 ML BTL BOTH EYES SCH (20:26)
[2020-12-06] MEDS: AMPICILLIN-SULBACTAM 1.5 GM in SODIUM CHLORIDE 0.9% 50 ML IVPB SCH ×4 (00:04→17:19)
--- NOTE | 2020-12-06 00:14 | P.PN ---
Subjective Progress Note Date: 12/06/20 The patient remains somewhat Disoriented. He is now pulled his catheter out for the second time. The nursing staff is unable to pass a catheter up. I will do so. Objective - Vital Signs Vital signs: Vital Signs Temp 101.9 F H 12/05/20 23:01 Pulse 118 H 12/05/20 20:00 Resp 18 12/05/20 20:00 BP 110/67 12/05/20 19:41 Pulse Ox 95 12/05/20 19:41 Intake & Output 12/05/20 12/05/20 12/06/20 06:59 18:59 06:59 Intake Total 700 Output Total 1250 Balance -1250 700 Intake: IV 700 Ampicillin-Sulbactam 1.5 100 gm In Sodium Chloride 0.9 % 50 ml @ 100 mls/hr IVPB Q12HR [facility] Rx#:[id number] Sodium Chloride 0.9% 1, 600 000 ml @ 75 mls/hr IV . [id number] [facility] Rx#:[id number] Output: Urine 1250 Other: Voiding Method Indwelling Catheter Indwelling Catheter Indwelling Catheter - Labs CBC & Chem 7: 12/05/20 19:09 12/05/20 07:16 Labs: Abnormal Lab Results - Last 24 Hours (Table) 12/05/20 12/05/20 12/05/20 Range/Units 07:16 07:16 19:09 WBC 11.73 H 13.0 H (4.50-10.00) X 10*3/uL RBC 3.37 L 3.17 L (4.40-5.60) X 10*6/uL Hgb 10.2 L 9.9 L D (13.0-17.0) g/dL Hct 34.4 L 30.8 L (39.6-50.0) % MCV 102.1 H (80.0-97.0) fL MCHC 29.7 L (32.0-37.0) g/dL Plt Count 137 L (150-450) k/uL MPV 12.5 H (9.5-12.2) fL Immature Gran # 0.06 H (0.00-0.04) X 10*3/uL Neutrophils # 9.98 H 11.7 H (1.80-7.70) X 10*3/uL Lymphocytes # 0.88 L 0.6 L (0.90-5.00) X 10*3/uL Eosinophils # 0.02 L (0.04-0.35) X 10*3/uL Sodium 153 H (135-145) mmol/L Chloride 117 H (96-109) mmol/L BUN 29.0 H (9.0-27.0) mg/dL Est GFR (CKD-EPI)AfAm 53.8 L (60.0-200.0) Est GFR (CKD-EPI)NonAf 46.5 L (60.0-200.0) BUN/Creatinine Ratio 20.71 H (12.00-20.00) Ratio Calcium 7.9 L (8.7-10.3) mg/dL Total Protein 5.3 L (6.2-8.2) g/dL Albumin 3.30 L (3.80-4.90) g/dL
--- NOTE | 2020-12-06 00:16 | P.PCN ---
Date of Procedure: 12/06/20 Preoperative Diagnosis: Urine retention, catheter trauma Postoperative Diagnosis: Same Procedure(s) Performed: Difficult catheterization Anesthesia: none Surgeon: Lawrence Mosquera Estimated Blood Loss (ml): 0 Pathology: none sent Condition: stable Indications for Procedure: The patient is in the hospital with dehydration urine retention. He remained somewhat disoriented. He has pulled his catheter out for a second time. I will replace it as the nursing staff is unable to do so. Description of Procedure: The patient was prepped and draped sterilely. With the aid of the nurse a 20- Nepalese coud-tip catheter is passed into the bladder. A large volume of tea- colored urine is drained. The nursing staff is been instructed to place minutes over his hand side does not pulled the catheter out.
[2020-12-06] MEDS: SODIUM CHLORIDE 0.9% 1,000 ML IV SCH ×2 (04:37→14:25)
[2020-12-06 06:49] LABS: Basophils % (A) 0 %; Eosinophils % (A) 0 %; HCT 29.7 % (39.0-53.0); HGB 9.5 gm/dL (13.0-17.5); Lymphocytes # (A) 0.8 k/uL (1.0-4.8); Lymphocytes % (A) 5 %; MCH 31.3 pg (25.0-35.0); MCV 97.6 fL (80.0-100.0); Monocytes # (A) 0.7 k/uL (0-1.0); Monocytes % (A) 4 %; Neutrophils # (A) 13.2 k/uL (1.3-7.7); Neutrophils % (A) 89 %; Platelet Count 135 k/uL (150-450); RBC 3.04 m/uL (4.30-5.90); RDW 13.4 % (11.5-15.5); WBC 14.8 k/uL (3.8-10.6)
[2020-12-06] MEDS: IPRATROPIUM 0.5 MG/2.5 ML NEBU INHALATION SCH ×5 (07:49→20:48)
[2020-12-06] MEDS: SYMBICORT 160-4.5 MCG INHALER INHALATION SCH ×3 (07:49→20:48)
[2020-12-06] MEDS: VIT A,C & E-LUTEIN-MINERALS 1 EACH TAB PO SCH (08:01)
[2020-12-06] MEDS: TAMSULOSIN 0.4 MG CAP.ER.24H PO SCH (08:01)
[2020-12-06] MEDS: ACETAMINOPHEN TAB 325 MG TAB PO PRN (16:48)
--- NOTE | 2020-12-06 16:59 | P.PN ---
Subjective Progress Note Date: 12/06/20 Principal diagnosis: Dental abscess right mandible Patient's reports doing much better. Has been on IV Unasyn and responding well to it. Currently getting breathing treatments so verbalization is difficult. Objective - Vital Signs Vital signs: Vital Signs Temp 100.6 F H 12/06/20 13:31 Pulse 104 H 12/06/20 16:33 Resp 22 12/06/20 13:31 BP 102/62 12/06/20 13:31 Pulse Ox 96 12/06/20 13:31 Intake & Output 12/05/20 12/06/20 12/06/20 18:59 06:59 18:59 Intake Total 700 Output Total 900 400 Balance 700 -900 -400 Intake: IV 700 Ampicillin-Sulbactam 1.5 100 gm In Sodium Chloride 0.9 % 50 ml @ 100 mls/hr IVPB Q12HR [facility] Rx#:[id number] Sodium Chloride 0.9% 1, 600 000 ml @ 75 mls/hr IV . [id number] [facility] Rx#:[id number] Output: Urine 900 400 Coude 400 Other: Voiding Method Indwelling Catheter Indwelling Catheter Indwelling Catheter - Exam Patient up in bed alert makes eye contact responds when spoken to, having shortness of breath. Currently getting breathing treatment. Extraoral no swelling noted on palpation. INtraoral has a draining fistula near tooth 31. patient has slight swelling adjacent to buccal surface, less than 1cm. no airway compromise. pt was warm to touch and has a fever. - Labs CBC & Chem 7: 12/06/20 06:16 12/05/20 07:16 Labs: Abnormal Lab Results - Last 24 Hours (Table) 12/05/20 12/06/20 Range/Units 19:09 06:16 WBC 13.0 H 14.8 H (3.8-10.6) k/uL RBC 3.17 L 3.04 L (4.30-5.90) m/uL Hgb 9.9 L D 9.5 L (13.0-17.5) gm/dL Hct 30.8 L 29.7 L (39.0-53.0) % Plt Count 137 L 135 L (150-450) k/uL Neutrophils # 11.7 H 13.2 H (1.3-7.7) k/uL Lymphocytes # 0.6 L 0.8 L (1.0-4.8) k/uL Microbiology - Last 24 Hours (Table) 12/05/20 12:16 Blood Culture - Preliminary Blood No Growth after 24 hours Assessment and Plan Assessment: Dental abscess of the right mandibular vestibular space. Appears to be contained to this area. some response to antibiotic. Plan: [facility] imaging was reviewed and no bone destruction noted but htis could be due to technique. i suspect tooth 31 is source. At this point with the abscess local anesthesia will be difficult. His medical stability for an General anesthetic would be poor and perhaps IV sedation. will discuss with anesthesia. plan to try to board tomorrow after more IV antibotic. The pros and cons of treatment at this point were discussed with his .
[2020-12-06] MEDS: LATANOPROST 0.005% OPHTH DROPS 2.5 ML BTL BOTH EYES SCH (20:33)
[2020-12-07] MEDS: AMPICILLIN-SULBACTAM 1.5 GM in SODIUM CHLORIDE 0.9% 50 ML IVPB SCH ×4 (00:22→17:02)
[2020-12-07] MEDS: SODIUM CHLORIDE 0.9% 1,000 ML IV SCH ×2 (03:33→04:42)
[2020-12-07] MEDS: TAMSULOSIN 0.4 MG CAP.ER.24H PO SCH (07:49)
[2020-12-07] MEDS: VIT A,C & E-LUTEIN-MINERALS 1 EACH TAB PO SCH (07:49)
[2020-12-07] MEDS: IPRATROPIUM 0.5 MG/2.5 ML NEBU INHALATION SCH (08:04)
[2020-12-07] MEDS: SYMBICORT 160-4.5 MCG INHALER INHALATION SCH ×2 (08:06→20:04)
--- NOTE | 2020-12-07 09:07 | P.HPIM ---
History of Present Illness H&P Date: 12/04/20 Chief Complaint: Altered menstrual status with generalized weakness right ma ndibular abscess This is an 80-year-old male one of my patient with a previous medical history significant for end-stage COPD oxygen dependent, chronic tobacco use and dependence, hypertension and hypertensive cardio vascular disease with left ventricular hypertrophy, chronic diastolic heart failure, enlarged prostate with lower urinary tract symptoms, patient was totally independent with his activities of daily living up until 2 weeks ago when he developed to have a significant generalized weakness with altered level of consciousness, his described him that he all of a sudden could not do anything he was seen by Dr. Kruger from oral surgery about a week ago and he was supposed to have the lower teeth removed because of a possible abscess there, however the patient was scheduled to do the procedure on the day he was admitted to the hospital patient was brought to the ER with increased confusion and generalized weakness not able to eat or drink much he was found to have an acute kidney injury, he was found also to have an acute swelling of the right mandible with severe mental status changes, patient was found to have urinary retention he was not able to urinate on his own, Richards catheter was placed by Dr. Douglas from urology, and the patient was admitted to the hospital for evaluation was started on IV fluid in the form of normal saline at 75 mL an hour was restarted back and his Flomax 0.4 minute gram once every day, patient was started on IV anabiotic in the form of Unasyn for treatment of possible abscess and oral surgery consultation was obtained from Dr. Kruger for possible surgical extraction of the lower teeth of the mandible. Review of Systems Constitutional: Reports anorexia, Reports fatigue, Reports lethargy, Reports malaise, Reports weakness, Reports weight loss Eyes: bilateral blurred vision, bilateral decreased vision, denies bulging eye Ears: bilateral: decreased hearing Ears, nose, mouth and throat: Reports dental pain, Denies dysphagia, Denies neck lump, Denies sore throat Cardiovascular: Reports decreased exercise tolerance, Reports dyspnea on exertion, Reports high blood pressure, Reports shortness of breath, Denies chest pain, Denies leg edema, Denies lightheadedness, Denies orthopnea, Denies palpitations, Denies paroxysmal nocturnal dyspnea, Denies rapid heart beat, Denies syncope Respiratory: Reports congestion, Reports cough, Reports cough with sputum, Reports dyspnea, Reports home oxygen, Reports wheezing, Denies respiratory infections, Denies sleep apnea, Denies snoring Gastrointestinal: Reports loss of appetite, Reports nausea, Denies abdominal pain, Denies bloating, Denies BRBPR, Denies change in bowel habits, Denies dyspepsia, Denies excessive gas, Denies heartburn, Denies hematemesis, Denies melena, Denies vomiting Genitourinary: Reports dysuria, Reports nocturia, Reports urinary retention Musculoskeletal: Reports atrophy, Reports frequent falls, Reports gait dysfuncti on, Reports low back pain Musculoskeletal: absent: ankle pain, ankle stiffness, ankle swelling, elbow pain, elbow stiffness, elbow swelling, foot pain, foot stiffness, foot swelling, hand pain, hand stiffness, hand swelling, hip pain, hip stiffness, hip swelling, knee pain, knee stiffness, knee swelling, shoulder pain, shoulder stiffness, shoulder swelling, wrist pain, wrist stiffness, wrist swelling Integumentary: Denies pruritus, Denies rash Neurological: Reports confusion, Reports gait dysfunction, Reports hearing di fficulties, Reports weakness Psychiatric: Denies anxiety, Denies depression Endocrine: Denies fatigue, Denies weight change 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 History of Any Multi-Drug Resistant Organisms: None Reported Past Surgical History: Adenoidectomy, Tonsillectomy Additional Past Surgical History / Comment(s): Left lobectomy Past Anesthesia/Blood Transfusion Reactions: No Reported Reaction Past Psychological History: No Psychological Hx Reported Smoking Status: Current every day smoker (Patient used to follow with pack every day he smoked for many many years and he currently smoke about a few cigarettes on a daily basis.) Past Alcohol Use History: None Reported Past Drug Use History: None Reported Medications and Allergies Home Medications Medication Instructions Recorded Confirmed Type Albuterol Nebulized [Ventolin 2.5 mg INHALATION RT-QID PRN 12/03/20 12/03/20 History Nebulized] Budesonide/Formoterol Fumarate 2 puff INHALATION RT-BID 12/03/20 12/03/20 History [Symbicort 160-4.5 Mcg Inhaler] Furosemide [Lasix] 40 mg PO BID 12/03/20 12/03/20 History Glycopyrrolate/Neb.accessories 25 mcg INHALATION RT-BID 12/03/20 12/03/20 History [Lonhala Magnair 25 Mcg Refill] Ipratropium Nebulized [Atrovent 0.5 mg INHALATION RT-QID PRN 12/03/20 12/03/20 History Nebulized 0.2 MG/ML] Ipratropium/Albuter 20-100Mcg 1 puff INHALATION RT-QID PRN 12/03/20 12/03/20 History [Combivent Respimat 20-100Mcg Inhaler] Latanoprost [Xalatan 0.005%] 1 drop BOTH EYES HS 12/03/20 12/03/20 History Losartan-Hctz 50-12.5 mg [Hyzaar 1 tab PO DAILY 12/03/20 12/03/20 History 50-12.5] Potassium Chloride ER [K-Dur 20] 20 meq PO BID 12/03/20 12/03/20 History Tamsulosin HCl [Flomax] 0.4 mg PO DAILY 12/03/20 12/03/20 History Tiotropium [place] [Spiriva] 1 cap INHALATION RT-DAILY 12/03/20 12/03/20 History Vit C/E/Zn/Coppr/Lutein/Zeaxan 1 cap PO DAILY 12/03/20 12/03/20 History [Preservision Areds 2 Softgel] Allergies Allergy/AdvReac Type Severity Reaction Status Date / Time No Known Allergies Allergy Verified 12/03/20 11:42 Physical Exam Vitals: Vital Signs Temp Pulse Pulse Resp BP BP Pulse Ox 12/04/20 00:27 99.0 F 92 20 122/68 94 L 12/03/20 20:57 80 12/03/20 20:47 80 20 110/68 98 12/03/20 20:44 77 12/03/20 19:00 80 18 98/58 98 12/03/20 18:00 98.4 F 88 18 106/59 99 12/03/20 17:00 18 110/64 99 12/03/20 16:00 100.3 F H 98 18 129/70 99 12/03/20 15:00 98 18 126/72 100 12/03/20 14:00 96 18 119/70 100 12/03/20 13:00 18 100 12/03/20 12:00 96 18 116/73 100 12/03/20 11:27 96 18 112/71 100 12/03/20 10:11 98.4 F 112 H 20 116/68 96 Intake and Output 12/03/20 12/04/20 12/04/20 22:59 06:59 14:59 Output Total 550 Balance -550 Output: Urine 550 Other: Weight 68.039 kg Physical examination: HEENT: Head is atraumatic, normocephalic, pupils were equal round reactive to light and recommendation, extraocular muscle movement were intact, sclera n onicteric, conjunctivae were slightly pale, mucous membranes of the mouth are somewhat dry, no significant swelling of the right mandible was severe tenderness, the gumline is extremely tender to palpation. Neck: Supple, no JVD, decreased carotid upstroke bilaterally. Chest: Decreased breath sound at bases, scattered rhonchi and electrophoresis, minimal intercostal retraction, no chest wall tenderness at this time. Heart: First heart sound is depressed, second heart sounds normal, there is sy stolic ejection murmur 2/6 located in the left sternal border. Abdomen: Soft mild tenderness to the right upper quadrant. No rebound or guarding positive bowel sounds. Extremities: There is no edema, no calf tenderness, dorsalis pedis + bilaterally. Neurologic examination: Patient is awake alert and oriented 2. Nerves III-12 appear grossly intact, muscle power 3 out of 5 in upper extremities and 3 out of 5 in bilateral lower extremities. Results CBC & Chem 7: 12/06/20 06:16 12/05/20 07:16 Labs: Abnormal Lab Results - Last 24 Hours (Table) 12/03/20 12/03/20 12/03/20 Range/Units 10:24 10:37 10:37 WBC 11.1 H (3.8-10.6) k/uL RBC 3.76 L (4.30-5.90) m/uL Hgb 11.6 L (13.0-17.5) gm/dL Hct 36.9 L (39.0-53.0) % Neutrophils # 9.4 H (1.3-7.7) k/uL Sodium 153 H (137-145) mmol/L Chloride 114 H (98-107) mmol/L Carbon Dioxide 32 H (22-30) mmol/L BUN 40 H (9-20) mg/dL Creatinine 1.94 H (0.66-1.25) mg/dL Glucose 143 H (74-99) mg/dL POC Glucose (mg/dL) 156 H (75-99) mg/dL Magnesium 2.9 H (1.6-2.3) mg/dL Thrombosis Risk Factor Assmnt - DVT/VTE Prophylaxis DVT/VTE Prophylaxis: Pharmacologic Prophylaxis ordered, Mechanical Prophylaxis ordered - Choose All That Apply Any of the Below Risk Factors Present?: No Other Risk Factors: Yes Each Risk Factor Represents 3 Points: Age 75 years or older Other congenital or acquired thrombophilia - If yes, enter type in comment: No Thrombosis Risk Factor Assessment Total Risk Factor Score: 3 Thrombosis Risk Factor Assessment Level: Moderate Risk Assessment and Plan Assessment: Assessment and plan: 1. Altered level of consciousness likely related to right mandibular abscess require teeth extraction. Start the patient on IV fluid in the form of mL an D5W and half normal saline at 100 mL per hour, start the patient on IV antibiotic in the form of Unasyn 1.5 g IV piggyback every 6 hours, continue to monitor this very closely continue Tylenol 650 mg orally every 6 hours as needed, monitor the patient, blood cultures were obtained 2 to rule out any bacteremia, she will be seen in consultation by oral surgery Dr. Kruger. 2. Acute kidney injury secondary to acute tubular necrosis and poor oral intake of fluid and food. Continue IV fluid in the form of D5W and half normal saline at 100 mL an hour, monitor the patient input and output and daily weight, monitor the patient CMP. 3. SIRS due to infected right mandibular teeth. Oral surgery consult continue IV antibiotic continue IV fluid, patient will need teeth extraction. 4. Urinary retention due to generalized weakness and enlarged prostate. Urology consultation appreciated continue Richards catheter, continue Flomax 0.4 mg orally once every day. 5. Hypertension and hypertensive cardiovascular disease currently hypotensive discontinue losartan as well as Lasix and potassium supplement continue IV fluid monitor the patient very closely. 6. Sinus tachycardia. Start the patient on metoprolol 12.5 mg orally twice every day, continue IV fluid resuscitation, 12-lead EKG showed normal sinus rhythm with right bundle branch block no acute ST-T wave changes . 7. End-stage COPD oxygen dependent. Continue oxygen support, continue DuoNeb 3 mg nebulization 4 times every day, continue Symbicort 160/4.5 g 2 puffs inhalation twice every day, continues for Mana HandiHaler 1 capsule inhalation once every day. 8. Chronic diastolic heart failure. Appears to be stable at this time we'll discontinue Lasix and potassium supplement for now. 9. Glaucoma. Continue current eyedrops. 10. Gross hematuria likely secondary to traumatic pulling on the Richards catheter. Continue IV fluid resuscitation, continue with the irrigation of the Richards catheter, urology is following. 11. DVT prophylaxis. Bilateral knee-high FARZANA hose, we'll resume heparin 5000 units subcu Wednesday every 8 hours in the next 1 or 2 days when the hematuria s tops. 12. GI prophylaxis. Protonix 40 mg IV push every 24 hours. 13. Hypernatremia secondary to hypovolemia. Patient was given normal saline at 75 mL an hour this will be switched to D5 half-normal saline at 100 mL an hour, monitor input and output and daily weight monitor the patient CMP level. 14. Admit to inpatient. Estimate a length of stay 2 midnights. 15. Patient is full code. 16. Overall prognosis is guarded
[2020-12-07] MEDS: PANTOPRAZOLE 40 MG/10 ML VIAL IVP SCH (09:14)
[2020-12-07] MEDS: DEXTROSE 5%-0.45% NACL 1,000 ML IV SCH ×2 (09:14→21:26)
[2020-12-07] MEDS: METOPROLOL TARTRATE 12.5 MG TAB PO SCH ×2 (09:14→21:25)
[2020-12-07] MEDS: IPRATROPIUM-ALBUTEROL 3 ML NEB INHALATION SCH ×3 (11:30→20:04)
[2020-12-07] MEDS ORDERED: fentaNYL (PF) 50 MCG/ML 2 ML AMP ONE (14:26)
[2020-12-07] MEDS ORDERED: KETAMINE 10 MG/ML 20 ML VIAL ONE (14:26)
[2020-12-07] MEDS ORDERED: MIDAZOLAM 2 MG/2 ML VIAL ONE (14:26)
[2020-12-07] MEDS ORDERED: PROPOFOL 10 MG/ML 20 ML VIAL IV ONE (14:26)
[2020-12-07] MEDS ORDERED: GLYCOPYRROLATE 0.2 MG/ML 2 ML VIAL ONE (14:26)
[2020-12-07] MEDS ORDERED: GELATIN SPONGE,ABSORB (LARGE) 1 EACH SPONGE TOPICAL ONE (14:28)
[2020-12-07] MEDS ORDERED: LACTATED RINGERS 1,000 ML IV ONE (14:28)
[2020-12-07] MEDS ORDERED: BUPIVACAINE (PF) 0.5% 30 ML VIAL SQ ONE ×2 (14:28)
[2020-12-07] MEDS ORDERED: LIDOCAINE 2%-EPI 1:100,000 20 ML VIAL SUBMUCOSAL ONE ×2 (14:28)
[2020-12-07] MEDS: HEPARIN SODIUM,PORCINE 5,000 UNIT/ML 1 ML VIAL SQ SCH (16:00)
--- NOTE | 2020-12-07 17:33 | OP ---
OPERATIVE REPORT DATE OF OPERATION: 12/07/2020 PROCEDURE PERFORMED: Surgical extraction of abscessed teeth #18, 19, 29, 30, 31. PREOPERATIVE DIAGNOSIS: Dental abscess. SECONDARY DIAGNOSIS: Sepsis. POSTOPERATIVE DIAGNOSES: Dental abscess. Sepsis. SURGEON: Dr. Benji Kruger. FLUIDS: Crystalloid per anesthesia record. BLOOD LOSS: 5 mL. OPERATIVE FINDINGS: None. PATHOLOGY: None. ANESTHESIA: Light sedation per the anesthesia record. INDICATION FOR PROCEDURE: The patient was known to my service. He had been scheduled to have these teeth removed as an outpatient and the day before he was supposed to come to my office to get them out, he was admitted to the hospital with fall at home and some decreased cognition and somnolence and altered mental status. Additional diagnosis was dehydration, but it seemed that the patient had an infection rule out as the source of the infection. I was consulted due to his hospital admission. He did appear to have some vestibular swelling with some pus on his lower right mandible associated with that appeared to be tooth #31. On consulting his physician, as the ability to tolerate the procedure in this rather fragile state, the decision was made to attempt light sedation and local in an effort to improve his outcome suspicious tooth. PROCEDURE DETAILS: Consent was obtained in the preop holding area. The patient had to regain lucency and his was at the bedside. I discussed the risks, benefits, alternatives, with both him and the , not limited to bleeding, pain, infection . MMODL / IJN: [id number] /
--- NOTE | 2020-12-07 17:50 | OP ---
OPERATIVE REPORT ADDENDUM: Consent was reviewed with the patient and his . The patient had regained lucency in the preoperative holding area. Discussion included but was not limited to bleeding, pain, infection and swelling, extraction of indicated teeth and possible need for future extractions. The patient understood and agreed to proceed with the procedure. The patient was then taken to the operating room where he was breathing well, in stable condition after undergoing procedure record. The mouth drop was then used to secure the airway and a moist Ray-Sumit was placed as throat packing. At that point, 5 mL of 0.5% Marcaine with Epinephrine as well as 5 mL 2% lidocaine with epinephrine was administered in block fashion bilaterally. It was noted that teeth numbers 18 and 19 were in extreme disrepair and due to some erythema around them, decision was made to attempt to remove these teeth . 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 After waiting for adequate anesthesia, a full thickness buccal flap was placed and some bone was removed with and a drill. Teeth numbers 31, 30 and 29 were delivered in parts without difficulty. After these areas copiously, there was no evidence of any purulence or abscess in this area in with which to due culture and sensitivity. The bolus fluids and was closed. There were approximated with 3-0 chromic gut. The patient was doing well and after conferring with anesthesia, decision was made to remove teeth # 2.5 more mL of lidocaine and 2.5 more mL of 0.5 Marcaine were administered in a manner. Full thickness flap and some bone removal and delivered these teeth without incident. Bolus fluids and closure was obtained again with 3-0 chromic gut. The patient did not have anything to drain or . The patient was brought back was visually inspected . The patient postoperative area where he was continue his hospital course . MMODL / IJN: [id number] /
[2020-12-07] MEDS: LATANOPROST 0.005% OPHTH DROPS 2.5 ML BTL BOTH EYES SCH (21:25)
[2020-12-08] MEDS: HEPARIN SODIUM,PORCINE 5,000 UNIT/ML 1 ML VIAL SQ SCH ×4 (00:34→23:57)
[2020-12-08] MEDS: AMPICILLIN-SULBACTAM 1.5 GM in SODIUM CHLORIDE 0.9% 50 ML IVPB SCH ×5 (00:35→23:58)
[2020-12-08] MEDS: IPRATROPIUM-ALBUTEROL 3 ML NEB INHALATION SCH ×6 (03:46→20:01)
[2020-12-08] MEDS: DEXTROSE 5%-0.45% NACL 1,000 ML IV SCH ×2 (06:40→16:03)
[2020-12-08] MEDS: SYMBICORT 160-4.5 MCG INHALER INHALATION SCH ×2 (08:03→20:01)
[2020-12-08] MEDS: PANTOPRAZOLE 40 MG/10 ML VIAL IVP SCH (09:06)
[2020-12-08] MEDS: METOPROLOL TARTRATE 12.5 MG TAB PO SCH (09:10)
[2020-12-08] MEDS: TAMSULOSIN 0.4 MG CAP.ER.24H PO SCH (09:11)
[2020-12-08] MEDS: VIT A,C & E-LUTEIN-MINERALS 1 EACH TAB PO SCH (09:11)
--- NOTE | 2020-12-08 10:04 | P.PN ---
Subjective Progress Note Date: 12/07/20 This is an 80-year-old male one of my patient with a previous medical history significant for end-stage COPD oxygen dependent, chronic tobacco use and dependence, hypertension and hypertensive cardio vascular disease with left ventricular hypertrophy, chronic diastolic heart failure, enlarged prostate with lower urinary tract symptoms, patient was totally independent with his activities of daily living up until 2 weeks ago when he developed to have a significant generalized weakness with altered level of consciousness, his described him that he all of a sudden could not do anything he was seen by Dr. Kruger from oral surgery about a week ago and he was supposed to have the lower teeth removed because of a possible abscess there, however the patient was scheduled to do the procedure on the day he was admitted to the hospital patient was brought to the ER with increased confusion and generalized weakness not able to eat or drink much he was found to have an acute kidney injury, he was found also to have an acute swelling of the right mandible with severe mental status changes, patient was found to have urinary retention he was not able to urinate on his own, Richards catheter was placed by Dr. Douglas from urology, and the patient was admitted to the hospital for evaluation was started on IV fluid in the form of normal saline at 75 mL an hour was restarted back and his Flomax 0.4 minute gram once every day, patient was started on IV anabiotic in the form of Unasyn for treatment of possible abscess and oral surgery consultation was obtained from Dr. Kruger for possible surgical extraction of the lower teeth of the mandible. 12/07: Patient is laying down in bed is more awake and more alert today, we will switch his IV fluid to D5 half-normal saline at 100 mL an hour, his scheduled to go for teeth extraction on the right mandible, continue IV antibiotic in the form of Unasyn 1.5 g IV piggyback every 6 hours, continue current pain management, patient most likely would benefit from subacute rehabilitation hopefully early next week, his Richards catheter appears to be much better with no blood and it, we will attempt void trial and 103 days. Objective - Vital Signs Vital signs: Vital Signs Temp 98.4 F 12/08/20 07:48 Pulse 116 H 12/08/20 08:15 Resp 20 12/08/20 07:48 BP 132/68 12/08/20 07:48 Pulse Ox 92 L 12/08/20 08:04 Intake & Output 12/07/20 12/08/20 12/08/20 17:59 06:59 18:59 Intake Total Output Total Balance Intake: IV Intake, IV Titration Amount Ampicillin-Sulbactam 1.5 gm In Sodium Chloride 0.9 % 50 ml @ 100 mls/hr IVPB Q6HR [facility] Rx#:[id number] Output: Urine Estimated Blood Loss Other: Voiding Method Indwelling Catheter - Exam Review of Systems Constitutional: Reports anorexia, Reports fatigue, Reports lethargy, Reports malaise, Reports weakness, Reports weight loss Eyes: bilateral blurred vision, bilateral decreased vision, denies bulging eye Ears: bilateral: decreased hearing Ears, nose, mouth and throat: Reports dental pain, Denies dysphagia, Denies neck lump, Denies sore throat Cardiovascular: Reports decreased exercise tolerance, Reports dyspnea on exertion, Reports high blood pressure, Reports shortness of breath, Denies chest pain, Denies leg edema, Denies lightheadedness, Denies orthopnea, Denies palpitations, Denies paroxysmal nocturnal dyspnea, Denies rapid heart beat, Denies syncope Respiratory: Reports congestion, Reports cough, Reports cough with sputum, Reports dyspnea, Reports home oxygen, Reports wheezing, Denies respiratory inf ections, Denies sleep apnea, Denies snoring Gastrointestinal: Reports loss of appetite, Reports nausea, Denies abdominal pain, Denies bloating, Denies BRBPR, Denies change in bowel habits, Denies dyspepsia, Denies excessive gas, Denies heartburn, Denies hematemesis, Denies m amelia, Denies vomiting Genitourinary: Reports dysuria, Reports nocturia, Reports urinary retention Musculoskeletal: Reports atrophy, Reports frequent falls, Reports gait dysfunction, Reports low back pain Musculoskeletal: absent: ankle pain, ankle stiffness, ankle swelling, elbow pain, elbow stiffness, elbow swelling, foot pain, foot stiffness, foot swelling, hand pain, hand stiffness, hand swelling, hip pain, hip stiffness, hip swelling, knee pain, knee stiffness, knee swelling, shoulder pain, shoulder stiffness, shoulder swelling, wrist pain, wrist stiffness, wrist swelling Integumentary: Denies pruritus, Denies rash Neurological: Reports confusion, Reports gait dysfunction, Reports hearing difficulties, Reports weakness Psychiatric: Denies anxiety, Denies depression Endocrine: Denies fatigue, Denies weight change Physical examination: HEENT: Head is atraumatic, normocephalic, pupils were equal round reactive to light and recommendation, extraocular muscle movement were intact, sclera nonicteric, conjunctivae were slightly pale, mucous membranes of the mouth are somewhat dry, no significant swelling of the right mandible was severe tenderness, the gumline is extremely tender to palpation. Neck: Supple, no JVD, decreased carotid upstroke bilaterally. Chest: Decreased breath sound at bases, scattered rhonchi and electrophoresis, minimal intercostal retraction, no chest wall tenderness at this time. Heart: First heart sound is depressed, second heart sounds normal, there is systolic ejection murmur 2/6 located in the left sternal border. Abdomen: Soft mild tenderness to the right upper quadrant. No rebound or guarding positive bowel sounds. Extremities: There is no edema, no calf tenderness, dorsalis pedis + bilaterally. Neurologic examination: Patient is awake alert and oriented 2. Nerves III-12 appear grossly intact, muscle power 3 out of 5 in upper extremities and 3 out of 5 in bilateral lower extremities. - Labs CBC & Chem 7: 12/06/20 06:16 12/05/20 07:16 Labs: Microbiology - Last 24 Hours (Table) 12/05/20 12:16 Blood Culture - Preliminary Blood No Growth after 48 hours Assessment and Plan Assessment: Assessment and plan: 1. Altered level of consciousness likely related to right mandibular abscess require teeth extraction. Start the patient on IV fluid in the form of mL an D5W and half normal saline at 100 mL per hour, start the patient on IV antibiotic in the form of Unasyn 1.5 g IV piggyback every 6 hours, continue to monitor this very closely continue Tylenol 650 mg orally every 6 hours as needed, monitor the patient, blood cultures were obtained 2 to rule out any bacteremia, she will be seen in consultation by oral surgery Dr. Kruger. 2. Acute kidney injury secondary to acute tubular necrosis and poor oral intake of fluid and food. Continue IV fluid in the form of D5W and half normal saline at 100 mL an hour, monitor the patient input and output and daily weight, monitor the patient CMP. 3. SIRS due to infected right mandibular teeth. Oral surgery consult continue IV antibiotic continue IV fluid, patient will need teeth extraction. 4. Urinary retention due to generalized weakness and enlarged prostate. Urology consultation appreciated continue Richards catheter, continue Flomax 0.4 mg orally once every day. 5. Hypertension and hypertensive cardiovascular disease currently hypotensive discontinue losartan as well as Lasix and potassium supplement continue IV fluid monitor the patient very closely. 6. Sinus tachycardia. Start the patient on metoprolol 12.5 mg orally twice every day, continue IV fluid resuscitation, 12-lead EKG showed normal sinus rhythm with right bundle branch block no acute ST-T wave changes . 7. End-stage COPD oxygen dependent. Continue oxygen support, continue DuoNeb 3 mg nebulization 4 times every day, continue Symbicort 160/4.5 g 2 puffs inhalation twice every day, continues for Mana HandiHaler 1 capsule inhalation once every day. 8. Chronic diastolic heart failure. Appears to be stable at this time we'll discontinue Lasix and potassium supplement for now. 9. Glaucoma. Continue current eyedrops. 10. Gross hematuria likely secondary to traumatic pulling on the Richards catheter. Continue IV fluid resuscitation, continue with the irrigation of the Richards catheter, urology is following. 11. DVT prophylaxis. Bilateral knee-high FARZANA hose, we'll resume heparin 5000 units subcu Wednesday every 8 hours in the next 1 or 2 days when the hematuria stops. 12. GI prophylaxis. Protonix 40 mg IV push every 24 hours. 13. Hypernatremia secondary to hypovolemia. Patient was given normal saline at 75 mL an hour this will be switched to D5 half-normal saline at 100 mL an hour, monitor input and output and daily weight monitor the patient CMP level. 14. Physical therapy evaluation for possible subacute rehab. 15. tool maintenance worker consult.
--- NOTE | 2020-12-08 10:24 | P.PN ---
Subjective Progress Note Date: 12/06/20 This is an 80-year-old male one of my patient with a previous medical history significant for end-stage COPD oxygen dependent, chronic tobacco use and dependence, hypertension and hypertensive cardio vascular disease with left ventricular hypertrophy, chronic diastolic heart failure, enlarged prostate with lower urinary tract symptoms, patient was totally independent with his activities of daily living up until 2 weeks ago when he developed to have a significant generalized weakness with altered level of consciousness, his described him that he all of a sudden could not do anything he was seen by Dr. Kruger from oral surgery about a week ago and he was supposed to have the lower teeth removed because of a possible abscess there, however the patient was scheduled to do the procedure on the day he was admitted to the hospital patient was brought to the ER with increased confusion and generalized weakness not able to eat or drink much he was found to have an acute kidney injury, he was found also to have an acute swelling of the right mandible with severe mental status changes, patient was found to have urinary retention he was not able to urinate on his own, Richards catheter was placed by Dr. Douglas from urology, and the patient was admitted to the hospital for evaluation was started on IV fluid in the form of normal saline at 75 mL an hour was restarted back and his Flomax 0.4 minute gram once every day, patient was started on IV anabiotic in the form of Unasyn for treatment of possible abscess and oral surgery consultation was obtained from Dr. Kruger for possible surgical extraction of the lower teeth of the mandible. 12/06: Patient is laying down in bed appears to be quite confused, and he had pulled his Richards catheter twice with significant blood in the Richards bag, Dr. Douglas was asked to replace his Richards catheter again, patient is to be maintained on IV antibiotic in the form of Unasyn, he would be seen by oral surgery for possible teeth extraction cares of the significant edema and pain of his right mandible, patient denies any chest pain at this time he appears a bit short of breath, he had some occasional cough, no phlegm production, he has no pleurisy, he has no abdominal pain, he has no nausea vomiting or diarrhea, he is extremely weak and he would definitely require subacute rehabilitation. 12/07: Patient is laying down in bed is more awake and more alert today, we will switch his IV fluid to D5 half-normal saline at 100 mL an hour, his scheduled to go for teeth extraction on the right mandible, continue IV antibiotic in the form of Unasyn 1.5 g IV piggyback every 6 hours, continue current pain management, patient most likely would benefit from subacute rehabilitation hopefully early next week, his Richards catheter appears to be much better with no blood and it, we will attempt void trial and 103 days. 12/08: Patient is feeling a lot better today denies any chest pain or any shortness breath, he is more awake and more alert, we'll try to discontinue his Richards catheter tomorrow morning, and attempt voiding trial, continue Flomax 0.4 minute gram once every day, continue Unasyn 1.5 g IV piggyback every 6 hours, continue to monitor the patient sodium level, continue current pain management, physical therapy evaluation as well as social professionals consultation for possible subacute rehab in a.m. Objective - Vital Signs Vital signs: Vital Signs Temp 98.4 F 12/08/20 07:48 Pulse 116 H 12/08/20 08:15 Resp 20 12/08/20 07:48 BP 132/68 12/08/20 07:48 Pulse Ox 92 L 12/08/20 08:04 Intake & Output 12/07/20 12/08/20 12/08/20 17:59 06:59 18:59 Intake Total Output Total Balance Intake: IV Intake, IV Titration Amount Ampicillin-Sulbactam 1.5 gm In Sodium Chloride 0.9 % 50 ml @ 100 mls/hr IVPB Q6HR [facility] Rx#:[id number] Output: Urine Estimated Blood Loss Other: Voiding Method Indwelling Catheter - Exam Review of Systems Constitutional: Reports anorexia, Reports fatigue, Reports lethargy, Reports malaise, Reports weakness, Reports weight loss Eyes: bilateral blurred vision, bilateral decreased vision, denies bulging eye Ears: bilateral: decreased hearing Ears, nose, mouth and throat: Reports dental pain, Denies dysphagia, Denies neck lump, Denies sore throat Cardiovascular: Reports decreased exercise tolerance, Reports dyspnea on exertion, Reports high blood pressure, Reports shortness of breath, Denies chest pain, Denies leg edema, Denies lightheadedness, Denies orthopnea, Denies palpitations, Denies paroxysmal nocturnal dyspnea, Denies rapid heart beat, Denies syncope Respiratory: Reports congestion, Reports cough, Reports cough with sputum, Reports dyspnea, Reports home oxygen, Reports wheezing, Denies respiratory infections, Denies sleep apnea, Denies snoring Gastrointestinal: Reports loss of appetite, Reports nausea, Denies abdominal pain, Denies bloating, Denies BRBPR, Denies change in bowel habits, Denies dyspepsia, Denies excessive gas, Denies heartburn, Denies hematemesis, Denies melena, Denies vomiting Genitourinary: Reports dysuria, Reports nocturia, Reports urinary retention Musculoskeletal: Reports atrophy, Reports frequent falls, Reports gait dysfunction, Reports low back pain Musculoskeletal: absent: ankle pain, ankle stiffness, ankle swelling, elbow pain, elbow stiffness, elbow swelling, foot pain, foot stiffness, foot swelling, hand pain, hand stiffness, hand swelling, hip pain, hip stiffness, hip swelling, knee pain, knee stiffness, knee swelling, shoulder pain, shoulder stiffness, shoulder swelling, wrist pain, wrist stiffness, wrist swelling Integumentary: Denies pruritus, Denies rash Neurological: Reports confusion, Reports gait dysfunction, Reports hearing difficulties, Reports weakness Psychiatric: Denies anxiety, Denies depression Endocrine: Denies fatigue, Denies weight change Physical examination: HEENT: Head is atraumatic, normocephalic, pupils were equal round reactive to light and recommendation, extraocular muscle movement were intact, sclera nonicteric, conjunctivae were slightly pale, mucous membranes of the mouth are somewhat dry, no significant swelling of the right mandible was severe tenderness, the gumline is extremely tender to palpation. Neck: Supple, no JVD, decreased carotid upstroke bilaterally. Chest: Decreased breath sound at bases, scattered rhonchi and electrophoresis, minimal intercostal retraction, no chest wall tenderness at this time. Heart: First heart sound is depressed, second heart sounds normal, there is systolic ejection murmur 2/6 located in the left sternal border. Abdomen: Soft mild tenderness to the right upper quadrant. No rebound or guarding positive bowel sounds. Extremities: There is no edema, no calf tenderness, dorsalis pedis + bilaterally. Neurologic examination: Patient is awake alert and oriented 2. Nerves III-12 appear grossly intact, muscle power 3 out of 5 in upper extremities and 3 out of 5 in bilateral lower extremities. - Labs CBC & Chem 7: 12/06/20 06:16 12/05/20 07:16 Labs: Microbiology - Last 24 Hours (Table) 12/05/20 12:16 Blood Culture - Preliminary Blood No Growth after 48 hours Assessment and Plan Assessment: Assessment and plan: 1. Altered level of consciousness likely related to right mandibular abscess require teeth extraction. Start the patient on IV fluid in the form of mL an D5W and half normal saline at 100 mL per hour, start the patient on IV antibiot ic in the form of Unasyn 1.5 g IV piggyback every 6 hours, continue to monitor this very closely continue Tylenol 650 mg orally every 6 hours as needed, monitor the patient, blood cultures were obtained 2 to rule out any bacteremia, oral surgery consultation for possible teeth extractions. 2. Acute kidney injury secondary to acute tubular necrosis and poor oral intake of fluid and food. Continue IV fluid in the form of D5W and half normal saline at 100 mL an hour, monitor the patient input and output and daily weight, monitor the patient CMP. 3. SIRS due to infected right mandibular teeth. Oral surgery consult continue IV antibiotic continue IV fluid, patient will need teeth extraction. 4. Urinary retention due to generalized weakness and enlarged prostate. Urology consultation appreciated continue Richards catheter, continue Flomax 0.4 mg orally once every day. Void trial for morning. 5. Hypertension and hypertensive cardiovascular disease. Continue metoprolol 12.5 minute gram orally twice every day. 6. Sinus tachycardia. Start the patient on metoprolol 12.5 mg orally twice every day, continue IV fluid resuscitation, 12-lead EKG showed normal sinus rhythm with right bundle branch block no acute ST-T wave changes . 7. End-stage COPD oxygen dependent. Continue oxygen support, continue DuoNeb 3 mg nebulization 4 times every day, continue Symbicort 160/4.5 g 2 puffs inhalation twice every day, continues Spiriva HandiHaler 1 capsule inhalation once every day. 8. Chronic diastolic heart failure. Appears to be stable at this time we'll discontinue Lasix and potassium supplement for now. 9. Glaucoma. Continue current eyedrops. 10. Gross hematuria likely secondary to traumatic pulling on the Richards catheter, Richards catheter has been replaced again. 11. DVT prophylaxis. Bilateral knee-high FARZANA hose, we'll resume heparin 5000 units subcu Wednesday every 8 hours in the next 1 or 2 days when the hematuria stops. 12. GI prophylaxis. Protonix 40 mg orally once every day. 13. Hypernatremia secondary to hypovolemia. continue D5 half-normal saline at 100 mL an hour, monitor input and output and daily weight monitor the patient CMP level. 14. Physical therapy evaluation for possible subacute rehab. 15. refuge worker consult. 16. Guarded prognosis.
[2020-12-08 10:33] LABS: Basophils % (A) 0 %; Eosinophils # (A) 0.1 k/uL (0-0.7); Eosinophils % (A) 1 %; HCT 24.9 % (39.0-53.0); Hypochromasia Slight; Lymphocytes # (A) 0.4 k/uL (1.0-4.8); Lymphocytes % (A) 5 %; MCHC 32.2 g/dL (31.0-37.0); MCV 99.4 fL (80.0-100.0); Mean Platelet Volume 9.7; Monocytes # (A) 0.4 k/uL (0-1.0); Monocytes % (A) 4 %; Neutrophils # (A) 8.4 k/uL (1.3-7.7); Neutrophils % (A) 89 %; Platelet Count 172 k/uL (150-450); RBC 2.51 m/uL (4.30-5.90); RDW 13.7 % (11.5-15.5); WBC 9.4 k/uL (3.8-10.6)
--- NOTE | 2020-12-08 10:44 | P.PN ---
Subjective Progress Note Date: 12/08/20 This is an 80-year-old male one of my patient with a previous medical history significant for end-stage COPD oxygen dependent, chronic tobacco use and dependence, hypertension and hypertensive cardio vascular disease with left ventricular hypertrophy, chronic diastolic heart failure, enlarged prostate with lower urinary tract symptoms, patient was totally independent with his activities of daily living up until 2 weeks ago when he developed to have a significant generalized weakness with altered level of consciousness, his described him that he all of a sudden could not do anything he was seen by Dr. Kruger from oral surgery about a week ago and he was supposed to have the lower teeth removed because of a possible abscess there, however the patient was scheduled to do the procedure on the day he was admitted to the hospital patient was brought to the ER with increased confusion and generalized weakness not able to eat or drink much he was found to have an acute kidney injury, he was found also to have an acute swelling of the right mandible with severe mental status changes, patient was found to have urinary retention he was not able to urinate on his own, Richards catheter was placed by Dr. Douglas from urology, and the patient was admitted to the hospital for evaluation was started on IV fluid in the form of normal saline at 75 mL an hour was restarted back and his Flomax 0.4 minute gram once every day, patient was started on IV anabiotic in the form of Unasyn for treatment of possible abscess and oral surgery consultation was obtained from Dr. Kruger for possible surgical extraction of the lower teeth of the mandible. 12/07: Patient is laying down in bed is more awake and more alert today, we will switch his IV fluid to D5 half-normal saline at 100 mL an hour, his scheduled to go for teeth extraction on the right mandible, continue IV antibiotic in the form of Unasyn 1.5 g IV piggyback every 6 hours, continue current pain management, patient most likely would benefit from subacute rehabilitation hopefully early next week, his Richards catheter appears to be much better with no blood and it, we will attempt void trial and 103 days. 12/08: Patient is feeling a lot better today denies any chest pain or any shortness breath, he is more awake and more alert, we'll try to discontinue his Richards catheter tomorrow morning, and attempt voiding trial, continue Flomax 0.4 minute gram once every day, continue Unasyn 1.5 g IV piggyback every 6 hours, continue to monitor the patient sodium level, continue current pain management, physical therapy evaluation as well as older adult social work specialist consultation for possible subacute rehab in a.m. Objective - Vital Signs Vital signs: Vital Signs Temp 98.4 F 12/08/20 07:48 Pulse 116 H 12/08/20 08:15 Resp 20 12/08/20 07:48 BP 132/68 12/08/20 07:48 Pulse Ox 92 L 12/08/20 08:04 Intake & Output 12/07/20 12/08/20 12/08/20 17:59 06:59 18:59 Intake Total Output Total Balance Intake: IV Intake, IV Titration Amount Ampicillin-Sulbactam 1.5 gm In Sodium Chloride 0.9 % 50 ml @ 100 mls/hr IVPB Q6HR [facility] Rx#:[id number] Output: Urine Estimated Blood Loss Other: Voiding Method Indwelling Catheter - Exam Review of Systems Constitutional: Reports anorexia, Reports fatigue, Reports lethargy, Reports malaise, Reports weakness, Reports weight loss Eyes: bilateral blurred vision, bilateral decreased vision, denies bulging eye Ears: bilateral: decreased hearing Ears, nose, mouth and throat: Reports dental pain, Denies dysphagia, Denies neck lump, Denies sore throat Cardiovascular: Reports decreased exercise tolerance, Reports dyspnea on exertion, Reports high blood pressure, Reports shortness of breath, Denies chest pain, Denies leg edema, Denies lightheadedness, Denies orthopnea, Denies palpitations, Denies paroxysmal nocturnal dyspnea, Denies rapid heart beat, Denies syncope Respiratory: Reports congestion, Reports cough, Reports cough with sputum, Reports dyspnea, Reports home oxygen, Reports wheezing, Denies respiratory infections, Denies sleep apnea, Denies snoring Gastrointestinal: Reports loss of appetite, Reports nausea, Denies abdominal pain, Denies bloating, Denies BRBPR, Denies change in bowel habits, Denies dyspepsia, Denies excessive gas, Denies heartburn, Denies hematemesis, Denies melena, Denies vomiting Genitourinary: Reports dysuria, Reports nocturia, Reports urinary retention Musculoskeletal: Reports atrophy, Reports frequent falls, Reports gait dysfunction, Reports low back pain Musculoskeletal: absent: ankle pain, ankle stiffness, ankle swelling, elbow pain, elbow stiffness, elbow swelling, foot pain, foot stiffness, foot swelling, hand pain, hand stiffness, hand swelling, hip pain, hip stiffness, hip swelling, knee pain, knee stiffness, knee swelling, shoulder pain, shoulder stiffness, shoulder swelling, wrist pain, wrist stiffness, wrist swelling Integumentary: Denies pruritus, Denies rash Neurological: Reports confusion, Reports gait dysfunction, Reports hearing difficulties, Reports weakness Psychiatric: Denies anxiety, Denies depression Endocrine: Denies fatigue, Denies weight change Physical examination: HEENT: Head is atraumatic, normocephalic, pupils were equal round reactive to light and recommendation, extraocular muscle movement were intact, sclera nonicteric, conjunctivae were slightly pale, mucous membranes of the mouth are somewhat dry, no significant swelling of the right mandible was severe tenderness, the gumline is extremely tender to palpation. Neck: Supple, no JVD, decreased carotid upstroke bilaterally. Chest: Decreased breath sound at bases, scattered rhonchi and electrophoresis, minimal intercostal retraction, no chest wall tenderness at this time. Heart: First heart sound is depressed, second heart sounds normal, there is systolic ejection murmur 2/6 located in the left sternal border. Abdomen: Soft mild tenderness to the right upper quadrant. No rebound or guarding positive bowel sounds. Extremities: There is no edema, no calf tenderness, dorsalis pedis + bilaterally. Neurologic examination: Patient is awake alert and oriented 2. Nerves III-12 appear grossly intact, muscle power 3 out of 5 in upper extremities and 3 out of 5 in bilateral lower extremities. - Labs CBC & Chem 7: 12/08/20 10:17 12/05/20 07:16 Labs: Microbiology - Last 24 Hours (Table) 12/05/20 12:16 Blood Culture - Preliminary Blood No Growth after 48 hours Assessment and Plan Assessment: Assessment and plan: 1. Altered level of consciousness likely related to right mandibular abscess require teeth extraction. Start the patient on IV fluid in the form of mL an D5W and half normal saline at 100 mL per hour, start the patient on IV an tibiotic in the form of Unasyn 1.5 g IV piggyback every 6 hours, continue to monitor this very closely continue Tylenol 650 mg orally every 6 hours as needed, monitor the patient, blood cultures were obtained 2 to rule out any bacteremia, post tooth extraction of the right mandible without any evidence of abscess per 2. Acute kidney injury secondary to acute tubular necrosis and poor oral intake of fluid and food. Continue IV fluid in the form of D5W and half normal saline at 100 mL an hour, monitor the patient input and output and daily weight, monitor the patient CMP. 3. SIRS due to infected right mandibular teeth. Oral surgery consult continue IV antibiotic continue IV fluid, patient will need teeth extraction. 4. Urinary retention due to generalized weakness and enlarged prostate. Urology consultation appreciated continue Richards catheter, continue Flomax 0.4 mg orally once every day. Void trial for morning. 5. Hypertension and hypertensive cardiovascular disease. Continue metoprolol 12.5 minute gram orally twice every day. 6. Sinus tachycardia. Start the patient on metoprolol 12.5 mg orally twice every day, continue IV fluid resuscitation, 12-lead EKG showed normal sinus rhythm with right bundle branch block no acute ST-T wave changes . 7. End-stage COPD oxygen dependent. Continue oxygen support, continue DuoNeb 3 mg nebulization 4 times every day, continue Symbicort 160/4.5 g 2 puffs inhalation twice every day, continues Spiriva HandiHaler 1 capsule inhalation once every day. 8. Chronic diastolic heart failure. Appears to be stable at this time we'll discontinue Lasix and potassium supplement for now. 9. Glaucoma. Continue current eyedrops. 10. Gross hematuria likely secondary to traumatic pulling on the Richards catheter. Resolved. 11. DVT prophylaxis. Bilateral knee-high FARZANA hose, we'll resume heparin 5000 units subcutanouslyacute every 8 hours in the next 1 or 2 days when the hematuria stops. 12. GI prophylaxis. Protonix 40 mg orally once every day. 13. Hypernatremia secondary to hypovolemia. continue D5 half-normal saline at 100 mL an hour, monitor input and output and daily weight monitor the patient CMP level. 14. acute blood loss anemia. we will give venofer 100 g IVPB x1. 15. Moderate protein calorie malnutrition. we will start Ensure enlive tid with meals. 16. Physical therapy evaluation for subacute rehabilitation. 17. offal worker consult for Subacute rehab, spoke with his and she wanted Elvia.
[2020-12-08] MEDS ORDERED: METOPROLOL TARTRATE 12.5 MG TAB PO ONE (10:45)
[2020-12-08] MEDS ORDERED: METOPROLOL TARTRATE 25 MG TAB PO SCH (10:45)
[2020-12-08 11:04] LABS: ALT 15 U/L (4-49); AST 22 U/L (17-59); African American GFR (CKD) 52 (>60 ml/min/1.73 sqM); Albumin 2.5 g/dL (3.5-5.0); Alkaline Phosphatase 55 U/L (38-126); Anion Gap 5 mmol/L; Blood Urea Nitrogen 26 mg/dL (9-20); Calcium 8.1 mg/dL (8.4-10.2); Carbon Dioxide 26 mmol/L (22-30); Chloride 117 mmol/L (98-107); Globulin 2.4 g/dL; Glucose 113 mg/dL (74-99); Non-African American GFR(CKD) 45 (>60 ml/min/1.73 sqM); Potassium 3.6 mmol/L (3.5-5.1); Sodium 148 mmol/L (137-145); Total Bilirubin 0.3 mg/dL (0.2-1.3); Total Protein 4.9 g/dL (6.3-8.2)
--- NOTE | 2020-12-08 11:23 | P.PN ---
Subjective Progress Note Date: 12/08/20 The patient is in the hospital dehydration, mental status changes in urine retention. He is pulled his catheter out twice a. He still seems somewhat confused. He is nearing discharge. Catheter will be removed for a voiding trial tomorrow. Objective - Vital Signs Vital signs: Vital Signs Temp 98.4 F 12/08/20 07:48 Pulse 115 H 12/08/20 11:16 Resp 20 12/08/20 07:48 BP 132/68 12/08/20 07:48 Pulse Ox 92 L 12/08/20 08:04 Intake & Output 12/07/20 12/08/20 12/08/20 17:59 06:59 18:59 Intake Total Output Total Balance Intake: IV Intake, IV Titration Amount Ampicillin-Sulbactam 1.5 gm In Sodium Chloride 0.9 % 50 ml @ 100 mls/hr IVPB Q6HR [facility] Rx#:[id number] Output: Urine Estimated Blood Loss Other: Voiding Method Indwelling Catheter - Labs CBC & Chem 7: 12/08/20 10:17 12/08/20 10:17 Labs: Abnormal Lab Results - Last 24 Hours (Table) 12/08/20 12/08/20 Range/Units 10:17 10:17 RBC 2.51 L (4.30-5.90) m/uL Hgb 8.0 L D (13.0-17.5) gm/dL Hct 24.9 L (39.0-53.0) % Neutrophils # 8.4 H (1.3-7.7) k/uL Lymphocytes # 0.4 L (1.0-4.8) k/uL Sodium 148 H (137-145) mmol/L Chloride 117 H (98-107) mmol/L BUN 26 H (9-20) mg/dL Creatinine 1.44 H (0.66-1.25) mg/dL Glucose 113 H (74-99) mg/dL Calcium 8.1 L (8.4-10.2) mg/dL Total Protein 4.9 L (6.3-8.2) g/dL Albumin 2.5 L (3.5-5.0) g/dL Microbiology - Last 24 Hours (Table) 12/05/20 12:16 Blood Culture - Preliminary Blood No Growth after 48 hours
[2020-12-08] MEDS ORDERED: SODIUM FERRIC GLUCONAT-SUCROSE 125 MG in SODIUM CHLORIDE 0.9% 100 ML IVPB ONE (11:30)
--- NOTE | 2020-12-08 11:32 | XR ---
EXAMINATION TYPE: XR chest 1V DATE OF EXAM: 12/08/2020 COMPARISON: 12/03/2020 HISTORY: 80-year-old male with cough and shortness of breath TECHNIQUE: Single frontal view of the chest is obtained. FINDINGS: The patient's chin is down obscuring the medial apices. Extensive bilateral pleural calcifications ar e redemonstrated. Continued blunted left costophrenic angle. Heart overall normal size. Multiple surg ical clips at the left hilum. Normal variant azygos fissure. There is some patchy densities in the ri ght lower lung, increased from prior. IMPRESSION: Extensive pleural-based calcifications. Correlate for prior spasticity exposure. However, some patchy density in the right lower lung appears increased. This could represent areas of atelectasis or deve loping patchy infiltrate.
[2020-12-08] MEDS: PANTOPRAZOLE 40 MG TABLET PO SCH (11:54)
[2020-12-08] MEDS: ACETAMINOPHEN TAB 325 MG TAB PO PRN (16:20)
[2020-12-08] MEDS ORDERED: PANTOPRAZOLE 40 MG TABLET PO SCH (17:30)
[2020-12-08] MEDS: METOPROLOL TARTRATE 25 MG TAB PO SCH (19:31)
[2020-12-08] MEDS: LATANOPROST 0.005% OPHTH DROPS 2.5 ML BTL BOTH EYES SCH (23:02)
[2020-12-09] MEDS: IPRATROPIUM-ALBUTEROL 3 ML NEB INHALATION SCH ×6 (00:15→21:54)
[2020-12-09] MEDS: DEXTROSE 5%-0.45% NACL 1,000 ML IV SCH ×3 (02:11→21:04)
[2020-12-09] MEDS: ACETAMINOPHEN TAB 325 MG TAB PO PRN (04:08)
[2020-12-09] MEDS: AMPICILLIN-SULBACTAM 1.5 GM in SODIUM CHLORIDE 0.9% 50 ML IVPB SCH ×3 (06:12→17:40)
[2020-12-09] MEDS: SYMBICORT 160-4.5 MCG INHALER INHALATION SCH ×2 (07:27→21:54)
[2020-12-09] MEDS: METOPROLOL TARTRATE 25 MG TAB PO SCH ×2 (07:33→21:04)
[2020-12-09] MEDS: TAMSULOSIN 0.4 MG CAP.ER.24H PO SCH (07:33)
[2020-12-09] MEDS: PANTOPRAZOLE 40 MG TABLET PO SCH (07:33)
[2020-12-09] MEDS: HEPARIN SODIUM,PORCINE 5,000 UNIT/ML 1 ML VIAL SQ SCH ×2 (07:33→17:35)
[2020-12-09] MEDS: VIT A,C & E-LUTEIN-MINERALS 1 EACH TAB PO SCH (07:33)
[2020-12-09 09:50] LABS: African American GFR (CKD) 64.9 (60.0-200.0); Anion Gap 8.7 mmol/L (4.00-12.00); BUN/Creat Ratio 16.67 Ratio (12.00-20.00); Calcium 7.9 mg/dL (8.7-10.3); Carbon Dioxide 24.3 mmol/L (21.6-31.8); Potassium 3.4 mmol/L (3.5-5.5)
[2020-12-09 10:50] LABS: Basophils # (A) 0.01 X 10*3/uL (0.00-0.10); Basophils % (A) 0.1 %; Eosinophils # (A) 0.35 X 10*3/uL (0.04-0.35); Eosinophils % (A) 3.6 %; HCT 22.6 % (39.6-50.0); HGB 7.1 g/dL (13.0-17.0); Lymphocytes # (A) 0.57 X 10*3/uL (0.90-5.00); Lymphocytes % (A) 5.9 %; MCH 31.1 pg (27.0-32.0); MCHC 31.4 g/dL (32.0-37.0); MCV 99.1 fL (80.0-97.0); Mean Platelet Volume 11.8 fL (9.5-12.2); Monocytes # (A) 0.54 X 10*3/uL (0.20-1.00); Monocytes % (A) 5.6 %; Neutrophils % (A) 83.5 %; Platelet Count 202 X 10*3/uL (140-440); RBC 2.28 X 10*6/uL (4.40-5.60); RDW 14.6 % (11.5-14.5); WBC 9.59 X 10*3/uL (4.50-10.00)
[2020-12-09] MEDS ORDERED: Potassium Replacement Protocol 1 EACH MISC MISCELLANE PRN (10:58)
[2020-12-09] MEDS: POTASSIUM CHLORIDE ER 20 MEQ TAB.ER PO SCH (11:43)
[2020-12-09] MEDS ORDERED: FUROSEMIDE 10 MG/ML 2 ML VIAL IV PRN (12:12)
--- NOTE | 2020-12-09 15:56 | P.PN ---
Subjective Progress Note Date: 12/05/20 This is an 80-year-old male one of my patient with a previous medical history significant for end-stage COPD oxygen dependent, chronic tobacco use and dependence, hypertension and hypertensive cardio vascular disease with left ventricular hypertrophy, chronic diastolic heart failure, enlarged prostate with lower urinary tract symptoms, patient was totally independent with his activities of daily living up until 2 weeks ago when he developed to have a significant generalized weakness with altered level of consciousness, his described him that he all of a sudden could not do anything he was seen by Dr. Kruger from oral surgery about a week ago and he was supposed to have the lower teeth removed because of a possible abscess there, however the patient was scheduled to do the procedure on the day he was admitted to the hospital patient was brought to the ER with increased confusion and generalized weakness not able to eat or drink much he was found to have an acute kidney injury, he was found also to have an acute swelling of the right mandible with severe mental status changes, patient was found to have urinary retention he was not able to urinate on his own, Richards catheter was placed by Dr. Douglas from urology, and the patient was admitted to the hospital for evaluation was started on IV fluid in the form of normal saline at 75 mL an hour was restarted back and his Flomax 0.4 minute gram once every day, patient was started on IV anabiotic in the form of Unasyn for treatment of possible abscess and oral surgery consultation was obtained from Dr. Kruger for possible surgical extraction of the lower teeth of the mandible. 12/05: Temperature max 101.9 and blood cultures will be ordered. He is on Unasyn. Continues to have facial swelling on the right side. He states he did not eat breakfast as he did not have much appetite. Heart rate 94, blood pressure 110/65, pulse ox 94% on room air. Consult added for Dr. mcallister to see if he can drain possible dental abscess. Objective - Vital Signs Vital signs: Vital Signs Temp 99.3 F 12/05/20 07:03 Pulse 101 H 12/05/20 07:03 Resp 18 12/05/20 07:03 BP 143/70 12/05/20 07:03 Pulse Ox 97 12/05/20 07:03 Intake & Output 12/04/20 12/05/20 12/05/20 18:59 06:59 18:59 Intake Total 650 Output Total 1250 Balance 650 -1250 Intake: IV 650 Ampicillin-Sulbactam 1.5 50 gm In Sodium Chloride 0.9 % 50 ml @ 100 mls/hr IVPB Q12HR [facility] Rx#:[id number] Sodium Chloride 0.9% 1, 600 000 ml @ 75 mls/hr IV . [id number] [facility] Rx#:[id number] Output: Urine 1250 Other: Voiding Method Indwelling Catheter Indwelling Catheter - Exam Review of Systems Constitutional: Reports anorexia, Reports fatigue, Reports lethargy, Reports malaise, Reports weakness, Reports weight loss Eyes: bilateral blurred vision, bilateral decreased vision, denies bulging eye Ears: bilateral: decreased hearing Ears, nose, mouth and throat: Reports dental pain, Denies dysphagia, Denies neck lump, Denies sore throat Cardiovascular: Reports decreased exercise tolerance, Reports dyspnea on exertion, Reports high blood pressure, Reports shortness of breath, Denies chest pain, Denies leg edema, Denies lightheadedness, Denies orthopnea, Denies palpitations, Denies paroxysmal nocturnal dyspnea, Denies rapid heart beat, Denies syncope Respiratory: Reports congestion, Reports cough, Reports cough with sputum, Reports dyspnea, Reports home oxygen, Reports wheezing, Denies respiratory i nfections, Denies sleep apnea, Denies snoring Gastrointestinal: Reports loss of appetite, Reports nausea, Denies abdominal pain, Denies bloating, Denies BRBPR, Denies change in bowel habits, Denies dyspepsia, Denies excessive gas, Denies heartburn, Denies hematemesis, Denies melena, Denies vomiting Genitourinary: Reports dysuria, Reports nocturia, Reports urinary retention Musculoskeletal: Reports atrophy, Reports frequent falls, Reports gait dysfunction, Reports low back pain Musculoskeletal: absent: ankle pain, ankle stiffness, ankle swelling, elbow pain, elbow stiffness, elbow swelling, foot pain, foot stiffness, foot swelling, hand pain, hand stiffness, hand swelling, hip pain, hip stiffness, hip swelling, knee pain, knee stiffness, knee swelling, shoulder pain, shoulder stiffness, bebo ulder swelling, wrist pain, wrist stiffness, wrist swelling Integumentary: Denies pruritus, Denies rash Neurological: Reports confusion, Reports gait dysfunction, Reports hearing difficulties, Reports weakness Psychiatric: Denies anxiety, Denies depression Endocrine: Denies fatigue, Denies weight change Physical examination: HEENT: Head is atraumatic, normocephalic, pupils were equal round reactive to light and recommendation, extraocular muscle movement were intact, sclera nonicteric, conjunctivae were slightly pale, mucous membranes of the mouth are somewhat dry, no significant swelling of the right mandible was severe tenderness, the gumline is extremely tender to palpation. Neck: Supple, no JVD, decreased carotid upstroke bilaterally. Chest: Decreased breath sound at bases, scattered rhonchi and electrophoresis, minimal intercostal retraction, no chest wall tenderness at this time. Heart: First heart sound is depressed, second heart sounds normal, there is systolic ejection murmur 2/6 located in the left sternal border. Abdomen: Soft mild tenderness to the right upper quadrant. No rebound or guarding positive bowel sounds. Extremities: There is no edema, no calf tenderness, dorsalis pedis + bilaterally. Neurologic examination: Patient is awake alert and oriented 2. Nerves III-12 appear grossly intact, muscle power 3 out of 5 in upper extremities and 3 out of 5 in bilateral lower extremities. - Labs CBC & Chem 7: 12/09/20 06:10 12/09/20 06:10 Labs: Abnormal Lab Results - Last 24 Hours (Table) 12/04/20 12/04/20 Range/Units 08:08 08:08 WBC 12.17 H (4.50-10.00) X 10*3/uL RBC 3.41 L (4.40-5.60) X 10*6/uL Hgb 10.6 L (13.0-17.0) g/dL Hct 35.1 L (39.6-50.0) % MCV 102.9 H (80.0-97.0) fL MCHC 30.2 L (32.0-37.0) g/dL MPV 12.4 H (9.5-12.2) fL Immature Gran # 0.07 H (0.00-0.04) X 10*3/uL Neutrophils # 10.53 H (1.80-7.70) X 10*3/uL Lymphocytes # 0.87 L (0.90-5.00) X 10*3/uL Sodium 156 H (135-145) mmol/L Chloride 119 H (96-109) mmol/L BUN 35.0 H (9.0-27.0) mg/dL Creatinine 1.7 H (0.6-1.5) mg/dL Est GFR (CKD-EPI)AfAm 42.6 L (60.0-200.0) Est GFR (CKD-EPI)NonAf 36.7 L (60.0-200.0) BUN/Creatinine Ratio 20.59 H (12.00-20.00) Ratio Glucose 132 H (70-110) mg/dL Calcium 8.5 L (8.7-10.3) mg/dL Total Protein 5.7 L (6.2-8.2) g/dL Albumin 3.50 L (3.80-4.90) g/dL Albumin/Globulin Ratio 1.59 L (1.60-3.17) g/dL Assessment and Plan Plan: 1. Altered level of consciousness likely related to right mandibular abscess require teeth extraction. Start the patient on IV fluid in the form of mL an D5W and half normal saline at 100 mL per hour, start the patient on IV antibiotic in the form of Unasyn 1.5 g IV piggyback every 6 hours, continue to monitor this very closely continue Tylenol 650 mg orally every 6 hours as needed, monitor the patient, blood cultures were obtained 2 to rule out any bacteremia, she will be seen in consultation by oral surgery Dr. Kruger. Cultures obtained for fever. 2. Acute kidney injury secondary to acute tubular necrosis and poor oral intake of fluid and food. Continue IV fluid in the form of D5W and half normal saline at 100 mL an hour, monitor the patient input and output and daily weight, monitor the patient CMP. 3. SIRS due to infected right mandibular teeth. Oral surgery consult continue IV antibiotic continue IV fluid, patient will need teeth extraction. 4. Urinary retention due to generalized weakness and enlarged prostate. Urology consultation appreciated continue Richards catheter, continue Flomax 0.4 mg orally once every day. 5. Hypertension and hypertensive cardiovascular disease currently hypotensive discontinue losartan as well as Lasix and potassium supplement continue IV fluid monitor the patient very closely. 6. Sinus tachycardia. Start the patient on metoprolol 12.5 mg orally twice every day, continue IV fluid resuscitation, 12-lead EKG showed normal sinus rhythm with right bundle branch block no acute ST-T wave changes . 7. End-stage COPD oxygen dependent. Continue oxygen support, continue DuoNeb 3 mg nebulization 4 times every day, continue Symbicort 160/4.5 g 2 puffs inhalation twice every day, continues for Mana HandiHaler 1 capsule inhalation once every day. 8. Chronic diastolic heart failure. Appears to be stable at this time we'll discontinue Lasix and potassium supplement for now. 9. Glaucoma. Continue current eyedrops. 10. Gross hematuria likely secondary to traumatic pulling on the Richards catheter. Continue IV fluid resuscitation, continue with the irrigation of the Richards catheter, urology is following. 11. DVT prophylaxis. Bilateral knee-high FARZANA hose, we'll resume heparin 5000 units subcu Wednesday every 8 hours in the next 1 or 2 days when the hematuria stops. 12. GI prophylaxis. Protonix 40 mg IV push every 24 hours. 13. Hypernatremia secondary to hypovolemia. Patient was given normal saline at 75 mL an hour this will be switched to D5 half-normal saline at 100 mL an hour, monitor input and output and daily weight monitor the patient CMP level. 14. Admit to inpatient. Estimate a length of stay 2 midnights. 15. Patient is full code. 16. Overall prognosis is guarded Discharge plan: To be determined Impression and plan of care have been directed as dictated by the signing physician. Kenyetta Cantu nurse practitioner acting as scribe for signing physician.
--- NOTE | 2020-12-09 15:58 | P.PN ---
Subjective Progress Note Date: 12/09/20 This is an 80-year-old male one of my patient with a previous medical history significant for end-stage COPD oxygen dependent, chronic tobacco use and dependence, hypertension and hypertensive cardio vascular disease with left ventricular hypertrophy, chronic diastolic heart failure, enlarged prostate with lower urinary tract symptoms, patient was totally independent with his activities of daily living up until 2 weeks ago when he developed to have a significant generalized weakness with altered level of consciousness, his described him that he all of a sudden could not do anything he was seen by Dr. Kruger from oral surgery about a week ago and he was supposed to have the lower teeth removed because of a possible abscess there, however the patient was scheduled to do the procedure on the day he was admitted to the hospital patient was brought to the ER with increased confusion and generalized weakness not able to eat or drink much he was found to have an acute kidney injury, he was found also to have an acute swelling of the right mandible with severe mental status changes, patient was found to have urinary retention he was not able to urinate on his own, Richards catheter was placed by Dr. Douglas from urology, and the patient was admitted to the hospital for evaluation was started on IV fluid in the form of normal saline at 75 mL an hour was restarted back and his Flomax 0.4 minute gram once every day, patient was started on IV anabiotic in the form of Unasyn for treatment of possible abscess and oral surgery consultation was obtained from Dr. Kruger for possible surgical extraction of the lower teeth of the mandible. 12/07: Patient is laying down in bed is more awake and more alert today, we will switch his IV fluid to D5 half-normal saline at 100 mL an hour, his scheduled to go for teeth extraction on the right mandible, continue IV antibiotic in the form of Unasyn 1.5 g IV piggyback every 6 hours, continue current pain management, patient most likely would benefit from subacute rehabilitation hopefully early next week, his Richards catheter appears to be much better with no blood and it, we will attempt void trial and 103 days. 12/08: Patient is feeling a lot better today denies any chest pain or any shortness breath, he is more awake and more alert, we'll try to discontinue his Richards catheter tomorrow morning, and attempt voiding trial, continue Flomax 0.4 minute gram once every day, continue Unasyn 1.5 g IV piggyback every 6 hours, continue to monitor the patient sodium level, continue current pain management, physical therapy evaluation as well as [employer] consultation for possible subacute rehab in a.m. 12/09: Patient had a low hemoglobin of 7.1 and will be ordered for 1 unit of packed RBCs. Also patient had low-grade fever of 100.4. Objective - Vital Signs Vital signs: Vital Signs Temp 99.4 F 12/09/20 08:00 Pulse 71 12/09/20 08:00 Resp 16 12/09/20 08:00 BP 109/64 12/09/20 08:00 Pulse Ox 97 12/09/20 08:00 Intake & Output 12/08/20 12/09/20 12/09/20 18:59 06:59 18:59 Output Total 550 550 Balance -550 -550 Output: Urine 550 550 Other: Voiding Method Indwelling Catheter Indwelling Catheter Indwelling Catheter - Exam Constitutional: Reports anorexia, Reports fatigue, Reports lethargy, Reports malaise, Reports weakness, Reports weight loss Eyes: bilateral blurred vision, bilateral decreased vision, denies bulging eye Ears: bilateral: decreased hearing Ears, nose, mouth and throat: Reports dental pain, Denies dysphagia, Denies neck lump, Denies sore throat Cardiovascular: Reports decreased exercise tolerance, Reports dyspnea on exertion, Reports high blood pressure, Reports shortness of breath, Denies chest pain, Denies leg edema, Denies lightheadedness, Denies orthopnea, Denies palpitations, Denies paroxysmal nocturnal dyspnea, Denies rapid heart beat, Denies syncope Respiratory: Reports congestion, Reports cough, Reports cough with sputum, Reports dyspnea, Reports home oxygen, Reports wheezing, Denies respiratory infections, Denies sleep apnea, Denies snoring Gastrointestinal: Reports loss of appetite, Reports nausea, Denies abdominal pain, Denies bloating, Denies BRBPR, Denies change in bowel habits, Denies dyspepsia, Denies excessive gas, Denies heartburn, Denies hematemesis, Denies melena, Denies vomiting Genitourinary: Reports dysuria, Reports nocturia, Reports urinary retention Musculoskeletal: Reports atrophy, Reports frequent falls, Reports gait dysfunction, Reports low back pain Musculoskeletal: absent: ankle pain, ankle stiffness, ankle swelling, elbow pain, elbow stiffness, elbow swelling, foot pain, foot stiffness, foot swelling, hand pain, hand stiffness, hand swelling, hip pain, hip stiffness, hip swelling, knee pain, knee stiffness, knee swelling, shoulder pain, shoulder stiffness, shoulder swelling, wrist pain, wrist stiffness, wrist swelling Integumentary: Denies pruritus, Denies rash Neurological: Reports confusion, Reports gait dysfunction, Reports hearing difficulties, Reports weakness Psychiatric: Denies anxiety, Denies depression Endocrine: Denies fatigue, Denies weight change Physical examination: HEENT: Head is atraumatic, normocephalic, pupils were equal round reactive to light and recommendation, extraocular muscle movement were intact, sclera nonicteric, conjunctivae were slightly pale, mucous membranes of the mouth are somewhat dry, no significant swelling of the right mandible was severe tenderness, the gumline is extremely tender to palpation. Neck: Supple, no JVD, decreased carotid upstroke bilaterally. Chest: Decreased breath sound at bases, scattered rhonchi and electrophoresis, minimal intercostal retraction, no chest wall tenderness at this time. Heart: First heart sound is depressed, second heart sounds normal, there is systolic ejection murmur 2/6 located in the left sternal border. Abdomen: Soft mild tenderness to the right upper quadrant. No rebound or guarding positive bowel sounds. Extremities: There is no edema, no calf tenderness, dorsalis pedis + bilaterally. Neurologic examination: Patient is awake alert and oriented 2. Nerves III-12 appear grossly intact, muscle power 3 out of 5 in upper extremities and 3 out of 5 in bilateral lower extremities. - Labs CBC & Chem 7: 12/09/20 06:10 12/09/20 06:10 Labs: Abnormal Lab Results - Last 24 Hours (Table) 12/08/20 12/08/20 Range/Units 10:17 10:17 RBC 2.51 L (4.30-5.90) m/uL Hgb 8.0 L D (13.0-17.5) gm/dL Hct 24.9 L (39.0-53.0) % Neutrophils # 8.4 H (1.3-7.7) k/uL Lymphocytes # 0.4 L (1.0-4.8) k/uL Sodium 148 H (137-145) mmol/L Chloride 117 H (98-107) mmol/L BUN 26 H (9-20) mg/dL Creatinine 1.44 H (0.66-1.25) mg/dL Glucose 113 H (74-99) mg/dL Calcium 8.1 L (8.4-10.2) mg/dL Total Protein 4.9 L (6.3-8.2) g/dL Albumin 2.5 L (3.5-5.0) g/dL Microbiology - Last 24 Hours (Table) 12/05/20 12:16 Blood Culture - Preliminary Blood No Growth after 72 hours Assessment and Plan Plan: 1. Altered level of consciousness likely related to right mandibular abscess require teeth extraction. Start the patient on IV fluid in the form of mL an D5W and half normal saline at 100 mL per hour, start the patient on IV antibiotic in the form of Unasyn 1.5 g IV piggyback every 6 hours, continue to monitor this very closely continue Tylenol 650 mg orally every 6 hours as needed, monitor the patient, blood cultures were obtained 2 to rule out any bacteremia, post tooth extraction of the right mandible without any evidence of abscess per 2. Acute kidney injury secondary to acute tubular necrosis and poor oral intake of fluid and food. Continue IV fluid in the form of D5W and half normal saline at 100 mL an hour, monitor the patient input and output and daily weight, monitor the patient CMP. 3. SIRS due to infected right mandibular teeth. Oral surgery consult continue IV antibiotic continue IV fluid, patient will need teeth extraction. 4. Urinary retention due to generalized weakness and enlarged prostate. Urology consultation appreciated continue Richards catheter, continue Flomax 0.4 mg orally once every day. Void trial for morning. 5. Hypertension and hypertensive cardiovascular disease. Continue metoprolol 12.5 minute gram orally twice every day. 6. Sinus tachycardia. Start the patient on metoprolol 12.5 mg orally twice every day, continue IV fluid resuscitation, 12-lead EKG showed normal sinus rhythm with right bundle branch block no acute ST-T wave changes . 7. End-stage COPD oxygen dependent. Continue oxygen support, continue DuoNeb 3 mg nebulization 4 times every day, continue Symbicort 160/4.5 g 2 puffs inhalation twice every day, continues Spiriva HandiHaler 1 capsule inhalation once every day. 8. Chronic diastolic heart failure. Appears to be stable at this time we'll discontinue Lasix and potassium supplement for now. 9. Glaucoma. Continue current eyedrops. 10. Gross hematuria likely secondary to traumatic pulling on the Richards catheter. Resolved. 11. DVT prophylaxis. Bilateral knee-high FARZANA hose, we'll resume heparin 5000 units subcutanouslyacute every 8 hours in the next 1 or 2 days when the hematuria stops. 12. GI prophylaxis. Protonix 40 mg orally once every day. 13. Hypernatremia secondary to hypovolemia. continue D5 half-normal saline at 100 mL an hour, monitor input and output and daily weight monitor the patient CMP level. 14. acute blood loss anemia. we will give venofer 100 g IVPB x1. 15. Moderate protein calorie malnutrition. we will start Ensure enlive tid with meals. 16. Physical therapy evaluation for subacute rehabilitation. Discharge plan: [facility] on Wednesday. COVID 19 testing ordered. Impression and plan of care have been directed as dictated by the signing physician. Kenyetta Cantu nurse practitioner acting as scribe for signing physician.
--- NOTE | 2020-12-09 18:03 | P.PN ---
Subjective Progress Note Date: 12/09/20 Principal diagnosis: Dental abscess right mandible Postop day 2 from extraction of 5 surgically removed teeth. I believe the plan is to go tomorrow for rehab. Objective - Vital Signs Vital signs: Vital Signs Temp 99.0 F 12/09/20 17:18 Pulse 109 H 12/09/20 17:18 Resp 16 12/09/20 17:18 BP 132/80 12/09/20 17:18 Pulse Ox 95 12/09/20 15:03 Intake & Output 12/08/20 12/09/20 12/09/20 18:59 06:59 18:59 Intake Total 310 Output Total 550 550 400 Balance -550 -550 -90 Intake: Blood Product 310 Rc Cpda-1 Unit 310 [id number] Output: Urine 550 550 400 Other: Voiding Method Indwelling Catheter Indwelling Catheter Indwelling Catheter # Bowel Movements 1 - Exam Lying in bed with only mild respitory distress, more alert today. He was thankful for having his teeth pulled. Reports no mouth pain. Appears to be in better mental status. No mouth swelling. The wounds are intact with no bleeding no pus. Good opening. - Labs CBC & Chem 7: 12/09/20 06:10 12/09/20 06:10 Labs: Abnormal Lab Results - Last 24 Hours (Table) 12/09/20 12/09/20 12/09/20 Range/Units 06:10 06:10 12:32 RBC 2.28 L (4.40-5.60) X 10*6/uL Hgb 7.1 L (13.0-17.0) g/dL Hct 22.6 L (39.6-50.0) % MCV 99.1 H (80.0-97.0) fL MCHC 31.4 L (32.0-37.0) g/dL RDW 14.6 H (11.5-14.5) % Immature Gran # 0.12 H (0.00-0.04) X 10*3/uL Neutrophils # 8.00 H (1.80-7.70) X 10*3/uL Lymphocytes # 0.57 L (0.90-5.00) X 10*3/uL Sodium 148 H (135-145) mmol/L Potassium 3.4 L (3.5-5.5) mmol/L Chloride 115 H (96-109) mmol/L Est GFR (CKD-EPI)NonAf 56.0 L (60.0-200.0) Glucose 142 H (70-110) mg/dL Calcium 7.9 L (8.7-10.3) mg/dL Crossmatch See Detail Microbiology - Last 24 Hours (Table) 12/05/20 12:16 Blood Culture - Preliminary Blood No Growth after 96 hours Assessment and Plan Assessment: Dental abscess of the right mandibular vestibular space appears resolved. No active infection or bleeding noted. Plan: Patient seems stable from a dental standpoint for discharge when appropriate. Warm salt water rinses after every meal for home care. Recommend follow-up in 2 weeks in my office. Time with Patient: Less than 30
[2020-12-09] MEDS: LATANOPROST 0.005% OPHTH DROPS 2.5 ML BTL BOTH EYES SCH (21:03)
[2020-12-09] MEDS ORDERED: IPRATROPIUM-ALBUTEROL 3 ML NEB INHALATION PRN (21:56)
[2020-12-09] MEDS ORDERED: LIDOCAINE URO-JET JELLY 2% 5 ML KIT URETHRAL ONE (23:09)
--- NOTE | 2020-12-09 23:42 | P.PN ---
Progress Note - Text Progress Note Date: 12/09/20 Mr. Hough's Richards catheter was removed earlier today. He is receiving tamsulosin. He was initially able to void small amounts, and empty his bladder adequately. The decision was thus made to leave the Richards catheter out. However, this evening he began to experience difficulty voiding, abdominal pain, and tachycardia. Bladder scan showed a bladder volume of over 1 L. In view of this, I placed a 16-Korean coud-tip Richards catheter under sterile conditions, yielding a return of clear urine. If he remains hospitalized for more than several days, consideration could be given to another voiding trial (the Richards catheter should be removed very early in the morning). However, if he is disch arged in the next couple of days it would be my recommendation that he be discharged home with the Richards catheter and follow up with Dr. Mosquera as an outpatient. Please notify us if we can be of any further assistance.
[2020-12-10] MEDS: AMPICILLIN-SULBACTAM 1.5 GM in SODIUM CHLORIDE 0.9% 50 ML IVPB SCH ×2 (00:15→05:18)
[2020-12-10] MEDS: HEPARIN SODIUM,PORCINE 5,000 UNIT/ML 1 ML VIAL SQ SCH ×2 (00:15→10:21)
[2020-12-10] MEDS: IPRATROPIUM-ALBUTEROL 3 ML NEB INHALATION SCH ×2 (07:21→11:29)
[2020-12-10] MEDS: SYMBICORT 160-4.5 MCG INHALER INHALATION SCH (07:21)
[2020-12-10 07:37] VITALS: BP 154/82; TEMP 98.3
--- NOTE | 2020-12-10 09:01 | P.DS ---
Providers Date of admission: 12/04/20 16:15 Expected date of discharge: 12/10/20 Attending physician: Jewell Zamora Consults: 12/03/20 12:32 Consult Physician Routine Consulting Provider: Lawrence Mosquera Consult Reason/Comments: urinary retention Do you want consulting provider notified?: Yes 12/05/20 15:01 Consult Physician Routine Consulting Provider: Juan Carlos Kruger Consult Reason/Comments: multi dental abscess Do you want consulting provider notified?: Yes Primary care physician: Jewell Zamora Hospital Course: This is an 80-year-old male one of my patient with a previous medical history significant for end-stage COPD oxygen dependent, chronic tobacco use and dependence, hypertension and hypertensive cardio vascular disease with left ventricular hypertrophy, chronic diastolic heart failure, enlarged prostate with lower urinary tract symptoms, patient was totally independent with his activities of daily living up until 2 weeks ago when he developed to have a significant generalized weakness with altered level of consciousness, his described him that he all of a sudden could not do anything he was seen by Dr. Kruger from oral surgery about a week ago and he was supposed to have the lower teeth removed because of a possible abscess there, however the patient was scheduled to do the procedure on the day he was admitted to the hospital patient was brought to the ER with increased confusion and generalized weakness not able to eat or drink much he was found to have an acute kidney injury, he was found also to have an acute swelling of the right mandible with severe mental status changes, patient was found to have urinary retention he was not able to urinate on his own, Richards catheter was placed by Dr. Douglas from urology, and the patient was admitted to the hospital for evaluation was started on IV fluid in the form of normal saline at 75 mL an hour was restarted back and his Flomax 0.4 minute gram once every day, patient was started on IV anabiotic in the form of Unasyn for treatment of possible abscess and oral surgery consultation was obtained from Dr. Kruger for possible surgical extraction of the lower teeth of the mandible. 12/07: Patient is laying down in bed is more awake and more alert today, we will switch his IV fluid to D5 half-normal saline at 100 mL an hour, his scheduled to go for teeth extraction on the right mandible, continue IV antibiotic in the form of Unasyn 1.5 g IV piggyback every 6 hours, continue current pain management, patient most likely would benefit from subacute rehabilitation hopefully early next week, his Richards catheter appears to be much better with no blood and it, we will attempt void trial and 103 days. 12/08: Patient is feeling a lot better today denies any chest pain or any shortness breath, he is more awake and more alert, we'll try to discontinue his Richards catheter tomorrow morning, and attempt voiding trial, continue Flomax 0.4 minute gram once every day, continue Unasyn 1.5 g IV piggyback every 6 hours, continue to monitor the patient sodium level, continue current pain management, physical therapy evaluation as well as delinquency prevention social worker consultation for possible subacute rehab in a.m. 12/09: Dr. Mosquera has recommended removing Richards catheter today for voiding trial. Patient is continued on Flomax. Temperature max 100.2, heart rate in the 70s to 90s, blood pressure 109/64, pulse ox 97% on 2 L nasal cannula. Patient had a low hemoglobin of 7.1 and will be ordered for 1 unit of packed RBCs. Also patient had low-grade fever of 100.4. 12/10: Patient's Richards catheter was removed yesterday at 11 AM and by 4 PM he had 300, María on bladder scan. Urology came and at 11:30 and replace Richards catheter with removal of 1 L. Patient did have 2 bowel movements yesterday. Repeat blood work reveals WBC 9.0, hemoglobin 9.0, platelet count 276. Sodium 146, potassium 3.9, chloride 114, CO2 28, BUN 16 creatinine 1.7. COVID-19 not detected. Patient noted to have a congested cough. Chest x-ray reveals small left pleural effusion. Bibasilar infiltrates consider atelectasis. Bilateral pleural plaquing. Dr. Kruger has cleared the patient for discharge with plan for warm water salt rinses every meal. Follow-up in his office in 2 weeks. Patient will be discharged to [facility] today in stable condition. DISCHARGE DIAGNOSES 1. Metabolic encephalopathy likely related to right mandibular abscess require teeth extraction. 2. Acute kidney injury secondary to acute tubular necrosis and poor oral intake of fluid and food. 3. Sepsis secondary to dental abscess status post extraction of teeth 18, 19, 29, 30, 31. 4. Urinary retention due to generalized weakness and enlarged prostate. 5. Hypertension and hypertensive cardiovascular disease. 6. Sinus tachycardia. 7. End-stage COPD oxygen dependent. 8. Chronic diastolic heart failure. 9. Glaucoma. 10. Gross hematuria likely secondary to traumatic pulling on the Richards catheter. Resolved. 11. Hypernatremia secondary to hypovolemia. 12. Acute blood loss anemia. 13. Richards catheter will be maintained after discharge. Moderate protein calorie malnutrition. Discharge Plan: [facility] for subacute rehab today. COVID-19 testing negative. Impression and plan of care have been directed as dictated by the signing physician. Kenyetta Cantu nurse practitioner acting as scribe for signing physician. Patient Condition at Discharge: Stable Plan - Discharge Summary Discharge Rx Participant: No New Discharge Prescriptions: New Amoxic-Pot Clav 875-125Mg [Augmentin 875-125] 1 tab PO BID 10 Days #20 tab No Action Tiotropium [place] [Spiriva] 1 cap INHALATION RT-DAILY Losartan-Hctz 50-12.5 mg [Hyzaar 50-12.5] 1 tab PO DAILY Budesonide/Formoterol Fumarate [Symbicort 160-4.5 Mcg Inhaler] 2 puff INHALATION RT-BID Vit C/E/Zn/Coppr/Lutein/Zeaxan [Preservision Areds 2 Softgel] 1 cap PO DAILY Potassium Chloride ER [K-Dur 20] 20 meq PO BID Latanoprost [Xalatan 0.005%] 1 drop BOTH EYES HS Furosemide [Lasix] 40 mg PO BID Tamsulosin HCl [Flomax] 0.4 mg PO DAILY Ipratropium/Albuter 20-100Mcg [Combivent Respimat 20-100Mcg Inhaler] 1 puff INHALATION RT-QID PRN PRN Reason: Shortness Of Breath Glycopyrrolate/Neb.accessories [Lonhala Magnair 25 Mcg Refill] 25 mcg INHALATION RT-BID Ipratropium Nebulized [Atrovent Nebulized 0.2 MG/ML] 0.5 mg INHALATION RT-QID PRN PRN Reason: Shortness Of Breath Albuterol Nebulized [Ventolin Nebulized] 2.5 mg INHALATION RT-QID PRN PRN Reason: Shortness Of Breath Discharge Medication List Albuterol Nebulized [Ventolin Nebulized] 2.5 mg INHALATION RT-QID PRN 12/03/20 [History] Budesonide/Formoterol Fumarate [Symbicort 160-4.5 Mcg Inhaler] 2 puff INHALATION RT-BID 12/03/20 [History] Furosemide [Lasix] 40 mg PO BID 12/03/20 [History] Glycopyrrolate/Neb.accessories [Lonhala Magnair 25 Mcg Refill] 25 mcg INHALATION RT-BID 12/03/20 [History] Ipratropium Nebulized [Atrovent Nebulized 0.2 MG/ML] 0.5 mg INHALATION RT-QID PRN 12/03/20 [History] Ipratropium/Albuter 20-100Mcg [Combivent Respimat 20-100Mcg Inhaler] 1 puff INHALATION RT-QID PRN 12/03/20 [History] Latanoprost [Xalatan 0.005%] 1 drop BOTH EYES HS 12/03/20 [History] Losartan-Hctz 50-12.5 mg [Hyzaar 50-12.5] 1 tab PO DAILY 12/03/20 [History] Potassium Chloride ER [K-Dur 20] 20 meq PO BID 12/03/20 [History] Tamsulosin HCl [Flomax] 0.4 mg PO DAILY 12/03/20 [History] Tiotropium [place]y [Spiriva] 1 cap INHALATION RT-DAILY 12/03/20 [History] Vit C/E/Zn/Coppr/Lutein/Zeaxan [Preservision Areds 2 Softgel] 1 cap PO DAILY 12/03/20 [History] Amoxic-Pot Clav 875-125Mg [Augmentin 875-125] 1 tab PO BID 10 Days #20 tab [Rx] Follow up Appointment(s)/Referral(s): Juan Carlos Kruger DDS [STAFF PHYSICIAN] - 2 Weeks (follow up 2 weeks after leaving rehab. ) Jewell Zamora MD [Primary Care Provider] - 1 Week (at [facility]) Activity/Diet/Wound Care/Special Instructions: Warm salt water rinses after every meal. Discharge Disposition: TRANSFER TO SNF/FORMERLY [facility]
[2020-12-10 09:25] LABS: Anisocytosis Slight; Basophils % (A) 0 %; Eosinophils # (A) 0.3 k/uL (0-0.7); Eosinophils % (A) 3 %; HCT 28.7 % (39.0-53.0); Hypochromasia Slight; Lymphocytes # (A) 0.7 k/uL (1.0-4.8); Lymphocytes % (A) 7 %; MCH 30.4 pg (25.0-35.0); MCHC 31.5 g/dL (31.0-37.0); MCV 96.3 fL (80.0-100.0); Mean Platelet Volume 8.8; Monocytes # (A) 0.4 k/uL (0-1.0); Monocytes % (A) 5 %; Neutrophils # (A) 7.5 k/uL (1.3-7.7); Neutrophils % (A) 84 %; Platelet Count 276 k/uL (150-450); RBC 2.98 m/uL (4.30-5.90)
[2020-12-10 09:33] LABS: African American GFR (CKD) 60 (>60 ml/min/1.73 sqM); Anion Gap 4 mmol/L; Blood Urea Nitrogen 16 mg/dL (9-20); Calcium 8.1 mg/dL (8.4-10.2); Carbon Dioxide 28 mmol/L (22-30); Chloride 114 mmol/L (98-107); Glucose 120 mg/dL (74-99); Non-African American GFR(CKD) 52 (>60 ml/min/1.73 sqM); Potassium 3.9 mmol/L (3.5-5.1); Sodium 146 mmol/L (137-145)
[2020-12-10] MEDS: DEXTROSE 5%-0.45% NACL 1,000 ML IV SCH (10:11)
[2020-12-10] MEDS: TAMSULOSIN 0.4 MG CAP.ER.24H PO SCH (10:20)
[2020-12-10] MEDS: VIT A,C & E-LUTEIN-MINERALS 1 EACH TAB PO SCH (10:20)
[2020-12-10] MEDS: METOPROLOL TARTRATE 25 MG TAB PO SCH (10:20)
[2020-12-10] MEDS: PANTOPRAZOLE 40 MG TABLET PO SCH (10:20)
[2020-12-10] MEDS ORDERED: AMOXIC-POT CLAV 875-125MG 1 EACH TAB PO SCH (11:00)
--- NOTE | 2020-12-10 11:20 | XR ---
EXAMINATION TYPE: XR chest 1V portable DATE OF EXAM: 12/10/2020 COMPARISON: 12/08/2020 INDICATION: Cough and congestion TECHNIQUE: Single frontal view of the chest is obtained. FINDINGS: The heart size is normal. The pulmonary vasculature is normal. Pleural plaquing is present bilaterally. Small left pleural effusion is present. Mild bibasilar infi ltrates may be atelectasis similar to prior exam IMPRESSION: 1. Small left pleural effusion. 2. Bibasilar infiltrates. Consider atelectasis. 3. Bilateral pleural plaquing
[2020-12-10 11:30] VITALS: RESP 20
[2020-12-10 12:02] VITALS: PULSE 110
[2020-12-10] MEDS ORDERED: FUROSEMIDE 10 MG/ML 4 ML VIAL IV STA (12:02)
[2020-12-10] MEDS ORDERED: POTASSIUM CHLORIDE ER 20 MEQ TAB.ER PO STA (12:02)
[2020-12-10] MEDS ORDERED: FUROSEMIDE 20 MG TAB PO STA (12:25)
[2020-12-10 15:28] VITALS: BMI 22.1
== END 2020-12-10 15:39 | DRG 853 ==
LOC: EC 10:09 → 5NMEDONC 12:33 → 4SSUR 21:55 → OBSVTOIN 12-04 16:15 → 4SSUR 12-07 15:52
PROVIDERS: ADMIT Internal Medicine; ATTEND Internal Medicine
PROC: 0CTX0Z1 Resection of Lower Tooth, Multiple, Open Approach (ICD-10-PCS; 2020-12-07)
PROC: 0NBT0ZZ Excision of Right Mandible, Open Approach (ICD-10-PCS; principal; 2020-12-07 07:12)
PROC: 30233N1 Transfusion of Nonautologous Red Blood Cells into Peripheral Vein, Percutaneous Approach (ICD-10-PCS; 2020-12-09)
DX: A41.9 Sepsis, unspecified organism (principal); G93.41 Metabolic encephalopathy; N17.0 Acute kidney failure with tubular necrosis; E44.0 Moderate protein-calorie malnutrition; E87.0 Hyperosmolality and hypernatremia; D62 Acute posthemorrhagic anemia; N39.0 Urinary tract infection, site not specified; I50.32 Chronic diastolic (congestive) heart failure; T83.83XA Hemorrhage due to genitourinary prosthetic devices, implants and grafts, initial encounter; I11.0 Hypertensive heart disease with heart failure; C45.9 Mesothelioma, unspecified; Z99.81 Dependence on supplemental oxygen; I95.9 Hypotension, unspecified; J44.9 Chronic obstructive pulmonary disease, unspecified; Z20.822 Contact with and (suspected) exposure to COVID-19; K04.7 Periapical abscess without sinus; E86.0 Dehydration; F17.200 Nicotine dependence, unspecified, uncomplicated; M27.2 Inflammatory conditions of jaws; N40.1 Benign prostatic hyperplasia with lower urinary tract symptoms; E78.5 Hyperlipidemia, unspecified; M19.90 Unspecified osteoarthritis, unspecified site; R33.8 Other retention of urine; I45.10 Unspecified right bundle-branch block; H40.9 Unspecified glaucoma; R26.2 Difficulty in walking, not elsewhere classified; R31.0 Gross hematuria; E86.1 Hypovolemia; Z68.22 Body mass index [BMI] 22.0-22.9, adult; Z71.3 Dietary counseling and surveillance; Z79.51 Long term (current) use of inhaled steroids; Z79.899 Other long term (current) drug therapy; Z85.831 Personal history of malignant neoplasm of soft tissue; Z98.890 Other specified postprocedural states
CPT/HCPCS: 36415; 51702; 70450; 70486; 71045; 72125; 72170; 80048; 80053; 81003; 82140; 83605; 83735; 84484; 85025; 85610; 85730; 86850; 86900; 86901; 86920; 87040; 87635; 93005; 94640; 94760; 96360; 96361; 99285

== ENCOUNTER 2020-12-11 21:09 | Inpatient (IN) | payer MEDICARE, BC ==
--- NOTE | 2020-12-11 21:59 | ED ---
General Adult HPI - General Source: patient, EMS, RN notes reviewed, old records reviewed Mode of arrival: EMS Limitations: altered mental status <Carlos Hernandez - Last Filed: 12/11/20 22:54> <Juan Carlos Moser - Last Filed: 12/14/20 23:02> - General Stated complaint: Sepsis - History of Present Illness Initial comments: 80-year-old presenting from long term with increased cough and dyspnea, low- grade temperature. Patient is a poor historian, he denies pain complaints. Denies central chest pain or abdominal pain. Patient believes that he is cur rently at the long term. Uncertain if this patient has had coronavirus. He was recently admitted to this institution and discharged to the long term. (Carlos Hernandez) - Related Data Home Medications Medication Instructions Recorded Confirmed Albuterol Nebulized [Ventolin 2.5 mg INHALATION RT-QID PRN 12/03/20 12/11/20 Nebulized] Budesonide/Formoterol Fumarate 2 puff INHALATION RT-BID@0800,1700 12/03/20 12/11/20 [Symbicort 160-4.5 Mcg Inhaler] Ipratropium Nebulized [Atrovent 0.5 mg INHALATION RT-QID PRN 12/03/20 12/11/20 Nebulized 0.2 MG/ML] Ipratropium/Albuter 20-100Mcg 1 puff INHALATION RT-QID PRN 12/03/20 12/11/20 [Combivent Respimat 20-100Mcg Inhaler] Latanoprost [Xalatan 0.005%] 1 drop BOTH EYES HS@2100 12/03/20 12/11/20 Tamsulosin HCl [Flomax] 0.4 mg PO DAILY@0800 12/03/20 12/11/20 Tiotropium Sidney [Spiriva] 1 cap INHALATION RT-DAILY@0800 12/03/20 12/11/20 Vit C/E/Zn/Coppr/Lutein/Zeaxan 1 cap PO DAILY@1700 12/03/20 12/11/20 [Preservision Areds 2 Softgel] Amoxic-Pot Clav 875-125Mg 1 tab PO BID@0800,1700 12/11/20 12/11/20 [Augmentin 875-125] Furosemide [Lasix] 40 mg PO DAILY@0800 12/11/20 12/11/20 Lactose-Reduced Food [Ensure Plus] 1 can PO TID@0800,1200,1700 12/11/20 12/11/20 Magnesium Hydroxide [Milk of 7,200 mg PO DAILY PRN 12/11/20 12/11/20 Magnesia Concentrate] Metoprolol Tartrate [Lopressor] 25 mg PO BID@0800,1700 12/11/20 12/11/20 Na Phos,M-B/Na Phos,Di-Ba [Fleet 133 ml RECTAL DAILY PRN 12/11/20 12/11/20 Adult] Potassium Chloride ER [K-Dur 20] 20 meq PO DAILY@1700 12/11/20 12/11/20 bisacodyL [Dulcolax] 10 mg RECTAL DAILY PRN 12/11/20 12/11/20 Previous Rx's Medication Instructions Recorded Ipratropium-Albuterol Nebulize 3 ml INHALATION RT-QID #0 ml 12/10/20 [Duoneb 0.5 mg-3 mg/3 ml Soln] Allergies Allergy/AdvReac Type Severity Reaction Status Date / Time No Known Allergies Allergy Verified 12/11/20 22:36 Review of Systems ROS Other: All systems not noted in ROS Statement are negative. <Carlos Hernandez - Last Filed: 12/11/20 22:54> ROS Other: All systems not noted in ROS Statement are negative. <Juan Carlos Moser - Last Filed: 12/14/20 23:02> ROS Statement: Those systems with pertinent positive or pertinent negative responses have been documented in the HPI. 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 History of Any Multi-Drug Resistant Organisms: None Reported Past Surgical History: Adenoidectomy, Tonsillectomy Additional Past Surgical History / Comment(s): Left lobectomy Past Anesthesia/Blood Transfusion Reactions: No Reported Reaction Past Psychological History: No Psychological Hx Reported Smoking Status: Former smoker Past Alcohol Use History: None Reported Past Drug Use History: None Reported - Past Family History Mother History Unknown: Yes <Carlos Hernandez - Last Filed: 12/11/20 22:54> General Exam Limitations: no limitations General appearance: alert, in no apparent distress Head exam: Present: atraumatic, normocephalic Eye exam: Present: normal appearance, PERRL ENT exam: Present: mucous membranes dry Neck exam: Present: normal inspection. Absent: tenderness, meningismus Respiratory exam: Present: wheezes, rhonchi, decreased breath sounds. Absent: respiratory distress Cardiovascular Exam: Present: tachycardia, irregular rhythm GI/Abdominal exam: Present: soft, distended. Absent: tenderness, guarding, rebound Extremities exam: Present: normal inspection, normal capillary refill. Absent: pedal edema, calf tenderness Neurological exam: Present: alert. Absent: oriented X3, motor sensory deficit Psychiatric exam: Present: normal affect, normal mood Skin exam: Present: warm, dry, intact. Absent: cyanosis, diaphoretic <Carlos Hernandez - Last Filed: 12/11/20 22:54> General appearance: alert, in no apparent distress Head exam: Present: atraumatic, normocephalic, normal inspection Eye exam: Present: normal appearance, PERRL, EOMI. Absent: scleral icterus, conjunctival injection, periorbital swelling ENT exam: Present: mucous membranes dry. Absent: mucous membranes moist Neck exam: Present: normal inspection. Absent: tenderness, meningismus, lymphadenopathy Respiratory exam: Present: wheezes, rhonchi, decreased breath sounds, prolonged expiratory. Absent: normal lung sounds bilaterally, respiratory distress, rales, stridor Cardiovascular Exam: Present: tachycardia, normal heart sounds. Absent: systolic murmur, diastolic murmur, rubs, gallop, clicks GI/Abdominal exam: Present: soft, normal bowel sounds. Absent: distended, tenderness, guarding, rebound, rigid Extremities exam: Present: normal inspection, full ROM, normal capillary refill. Absent: tenderness, pedal edema, joint swelling, calf tenderness Back exam: Present: normal inspection Neurological exam: Present: alert, oriented X3, CN II-XII intact Psychiatric exam: Present: normal affect, normal mood Skin exam: Present: warm, dry, intact, normal color. Absent: rash <Juan Carlos Moser - Last Filed: 12/14/20 23:02> Course <Carlos Hernandez - Last Filed: 12/11/20 22:54> <Juan Carlos Moser - Last Filed: 12/14/20 23:02> Vital Signs 12/11/20 12/11/20 12/11/20 21:33 22:36 23:00 Temperature 100.1 F H Pulse Rate 121 H 120 H Respiratory 18 20 24 Rate Blood Pressure 148/83 152/90 O2 Sat by Pulse 94 L 93 L Oximetry 12/11/20 12/12/20 12/12/20 23:30 00:29 00:44 Temperature 100.7 F H Pulse Rate 112 H 98 96 Respiratory 22 Rate Blood Pressure O2 Sat by Pulse Oximetry 12/12/20 12/12/20 12/12/20 02:00 05:55 08:48 Temperature 97.9 F 97.9 F 98 F Pulse Rate 94 86 85 Respiratory 20 22 18 Rate Blood Pressure 100/57 112/64 116/67 O2 Sat by Pulse 98 100 96 Oximetry 12/12/20 12/12/20 12/12/20 09:33 09:45 12:30 Temperature 98.0 F Pulse Rate 95 67 96 Respiratory 18 Rate Blood Pressure 110/81 O2 Sat by Pulse 97 Oximetry 12/12/20 12/12/20 12/12/20 15:05 15:11 15:20 Temperature 98.8 F Pulse Rate 98 68 Respiratory 18 Rate Blood Pressure 98/58 O2 Sat by Pulse 97 97 Oximetry 12/12/20 12/12/20 12/12/20 15:28 17:33 20:06 Temperature 98.2 F Pulse Rate 72 101 H 92 Respiratory 20 18 Rate Blood Pressure 95/59 92/67 O2 Sat by Pulse 96 97 Oximetry 12/12/20 12/12/20 12/12/20 20:25 20:36 22:54 Temperature 98.2 F Pulse Rate 92 84 100 Respiratory 16 Rate Blood Pressure 107/62 O2 Sat by Pulse 95 94 L Oximetry - Reevaluation(s) Reevaluation #1: 12/11/20 22:54 Patient care signed out to Dr. Moser At shift change awaiting x-ray, laboratory testing. (Carlos Hernandez) Medical records reviewed Patient is improved with fever control and symptomatic therapy (Juan Carlos Moser) EKG Findings - EKG Comments: EKG Findings:: EKG: Sinus tachycardia, rightward axis, incomplete right bundle, rate of 121, AL interval 134, QRS duration 94, QTC 445, no ST segment elevation. <Carlos Hernandez - Last Filed: 12/11/20 22:54> Medical Decision Making - Lab Data Result diagrams: 12/11/20 22:21 <Carlos Hernandez - Last Filed: 12/11/20 22:54> - Lab Data Result diagrams: 12/13/20 06:01 12/13/20 06:01 - Radiology Data Radiology results: report reviewed (Chest x-ray with mild lower lobe infiltrate), image reviewed <Juan Carlos Moser - Last Filed: 12/14/20 23:02> - Medical Decision Making 80 male for fever. Patient with likely coronavirus even though initial testing here is negative. Patient will be admitted for supportive care, Richards was placed for urinary output (Juan Carlos Moser) - Lab Data Lab Results 12/11/20 12/11/20 12/11/20 Range/Units 22:21 22:21 22:21 WBC 11.5 H (3.8-10.6) k/uL RBC 2.87 L (4.30-5.90) m/uL Hgb 9.1 L (13.0-17.5) gm/dL Hct 27.6 L (39.0-53.0) % MCV 96.2 (80.0-100.0) fL MCH 31.7 (25.0-35.0) pg MCHC 32.9 (31.0-37.0) g/dL RDW 15.1 (11.5-15.5) % Plt Count 355 (150-450) k/uL MPV 8.5 Neutrophils % 88 % Lymphocytes % 5 % Monocytes % 5 % Eosinophils % 2 % Basophils % 0 % Neutrophils # 10.0 H (1.3-7.7) k/uL Lymphocytes # 0.5 L (1.0-4.8) k/uL Monocytes # 0.5 (0-1.0) k/uL Eosinophils # 0.2 (0-0.7) k/uL Basophils # 0.0 (0-0.2) k/uL PT 10.7 (9.0-12.0) sec INR 1.0 (<1.2) APTT 23.6 (22.0-30.0) sec Sodium 144 (137-145) mmol/L Potassium 4.5 (3.5-5.1) mmol/L Chloride 109 H (98-107) mmol/L Carbon Dioxide 28 (22-30) mmol/L Anion Gap 7 mmol/L BUN 19 (9-20) mg/dL Creatinine 1.43 H (0.66-1.25) mg/dL Est GFR (CKD-EPI)AfAm 53 (>60 ml/min/1.73 sqM) Est GFR (CKD-EPI)NonAf 46 (>60 ml/min/1.73 sqM) Glucose 114 H (74-99) mg/dL Plasma Lactic Acid Adal (0.7-2.0) mmol/L Calcium 8.7 (8.4-10.2) mg/dL Magnesium 1.9 (1.6-2.3) mg/dL Total Bilirubin 0.4 (0.2-1.3) mg/dL AST 35 (17-59) U/L ALT 26 (4-49) U/L Alkaline Phosphatase 92 (38-126) U/L Lactate Dehydrogenase (313-618) U/L C-Reactive Protein (<10.0) mg/L Total Protein 5.8 L (6.3-8.2) g/dL Albumin 3.1 L (3.5-5.0) g/dL Coronavirus (PCR) (Not Detectd) 12/11/20 12/11/20 12/11/20 Range/Units 22:21 22:21 22:21 WBC (3.8-10.6) k/uL RBC (4.30-5.90) m/uL Hgb (13.0-17.5) gm/dL Hct (39.0-53.0) % MCV (80.0-100.0) fL MCH (25.0-35.0) pg MCHC (31.0-37.0) g/dL RDW (11.5-15.5) % Plt Count (150-450) k/uL MPV Neutrophils % % Lymphocytes % % Monocytes % % Eosinophils % % Basophils % % Neutrophils # (1.3-7.7) k/uL Lymphocytes # (1.0-4.8) k/uL Monocytes # (0-1.0) k/uL Eosinophils # (0-0.7) k/uL Basophils # (0-0.2) k/uL PT (9.0-12.0) sec INR (<1.2) APTT (22.0-30.0) sec Sodium (137-145) mmol/L Potassium (3.5-5.1) mmol/L Chloride (98-107) mmol/L Carbon Dioxide (22-30) mmol/L Anion Gap mmol/L BUN (9-20) mg/dL Creatinine (0.66-1.25) mg/dL Est GFR (CKD-EPI)AfAm (>60 ml/min/1.73 sqM) Est GFR (CKD-EPI)NonAf (>60 ml/min/1.73 sqM) Glucose (74-99) mg/dL Plasma Lactic Acid Adal 1.0 (0.7-2.0) mmol/L Calcium (8.4-10.2) mg/dL Magnesium (1.6-2.3) mg/dL Total Bilirubin (0.2-1.3) mg/dL AST (17-59) U/L ALT (4-49) U/L Alkaline Phosphatase (38-126) U/L Lactate Dehydrogenase 811 H (313-618) U/L C-Reactive Protein 81.7 H (<10.0) mg/L Total Protein (6.3-8.2) g/dL Albumin (3.5-5.0) g/dL Coronavirus (PCR) Not Detected (Not Detectd) Disposition <Carlos Hernandez - Last Filed: 12/11/20 22:54> Is patient prescribed a controlled substance at d/c from ED?: No <Juan Carlos Moser - Last Filed: 12/14/20 23:02> Clinical Impression: Dehydration, Urinary retention, Fever, JENNIFER (acute kidney injury), Pneumonia, Coronavirus infection, unspecified Narrative: ro coronavirus (Juan Carlos Moser) Disposition: ADMITTED IP TO THIS HOSP Condition: Fair
[2020-12-11 22:51] LABS: Basophils % (A) 0 %; Eosinophils # (A) 0.2 k/uL (0-0.7); Eosinophils % (A) 2 %; HCT 27.6 % (39.0-53.0); HGB 9.1 gm/dL (13.0-17.5); Lymphocytes # (A) 0.5 k/uL (1.0-4.8); Lymphocytes % (A) 5 %; MCH 31.7 pg (25.0-35.0); MCHC 32.9 g/dL (31.0-37.0); MCV 96.2 fL (80.0-100.0); Mean Platelet Volume 8.5; Monocytes # (A) 0.5 k/uL (0-1.0); Monocytes % (A) 5 %; Neutrophils % (A) 88 %; Platelet Count 355 k/uL (150-450); RBC 2.87 m/uL (4.30-5.90); RDW 15.1 % (11.5-15.5); WBC 11.5 k/uL (3.8-10.6)
[2020-12-11] MEDS ORDERED: SODIUM CHLORIDE 0.9% 500 ML 500 ML IV ONE (22:54)
--- NOTE | 2020-12-11 22:54 | XR ---
EXAMINATION TYPE: XR chest 1V portable DATE OF EXAM: 12/11/2020 COMPARISON: 12/10/2020 HISTORY: Weakness TECHNIQUE: Single view FINDINGS: There is extensive calcified pleural plaque bilaterally. There is slight blunting of the co stophrenic angles. There is coarse interstitial density in the lungs. Heart is borderline enlarged. T here is no definite heart failure. There is some infiltrate at both lung bases. IMPRESSION: Calcified pleural plaque and extensive pulmonary fibrosis. Chest is unchanged compared t o yesterday. Chest appears slightly worse than 12/03/2020 with some new infiltrate in both lower lobes.
[2020-12-11 23:02] LABS: Partial Thromboplastin Time 23.6 sec (22.0-30.0); Prothrombin Time 10.7 sec (9.0-12.0)
[2020-12-11 23:10] LABS: Albumin 3.1 g/dL (3.5-5.0); Calcium 8.7 mg/dL (8.4-10.2); Magnesium 1.9 mg/dL (1.6-2.3); Potassium 4.5 mmol/L (3.5-5.1); Total Bilirubin 0.4 mg/dL (0.2-1.3); Total Protein 5.8 g/dL (6.3-8.2)
[2020-12-11] MEDS ORDERED: SODIUM CHLORIDE 0.9% 1,000 ML IV STA (23:16)
[2020-12-11] MEDS ORDERED: LORazepam 2 MG/ML INJ IV STA (23:16)
[2020-12-11] MEDS ORDERED: IPRATROPIUM-ALBUTEROL 3 ML NEB INHALATION STA (23:16)
[2020-12-11] MEDS ORDERED: IBUPROFEN 600 MG TAB PO STA (23:16)
[2020-12-11] MEDS ORDERED: methylPREDNISolone SOD SUCCI 125 MG/2 ML VIAL IV STA (23:16)
[2020-12-11] MEDS ORDERED: ACETAMINOPHEN TAB 500 MG TAB PO STA (23:16)
[2020-12-11] MEDS: SODIUM CHLORIDE 0.9% 1,000 ML IV SCH (23:47)
[2020-12-12] MEDS ORDERED: NALOXONE 0.4 MG/ML 1 ML VIAL IV PRN (01:21)
[2020-12-12] MEDS ORDERED: IBUPROFEN 400 MG TAB PO PRN (01:21)
[2020-12-12] MEDS ORDERED: ACETAMINOPHEN TAB 325 MG TAB PO PRN (01:21)
[2020-12-12] MEDS ORDERED: MORPHINE SULFATE 4 MG/ML SYRINGE IV PRN (01:21)
[2020-12-12] MEDS ORDERED: SODIUM CHLORIDE 0.9% 1,000 ML IV STA (01:21)
[2020-12-12 02:56] LABS: Appearance,Urine Cloudy (Clear); Bacteria,Urine Rare /hpf; Bilirubin,Urine Negative (Negative); Blood,Urine Large (Negative); Color,Urine Yellow; Glucose,Urine (UA) Negative (Negative); Hyphae Yeast, Urine Few /hpf; Ketones,Urine Negative (Negative); Leukocyte Esterase,Urine Moderate (Negative); Mucus,Urine Rare /hpf; Nitrite,Urine Negative (Negative); Protein,Urine 1+ (Negative); RBC,Urine >182 /hpf (0-5); Specific Gravity,Urine 1.012 (1.001-1.035); Urobilinogen,Urine <2.0 mg/dL (<2.0); WBC,Urine 12 /hpf (0-5)
[2020-12-12 04:04] LABS: C Reactive Protein 81.7 mg/L (<10.0)
[2020-12-12] MEDS ORDERED: AZITHROMYCIN 500 MG in SODIUM CHLORIDE 0.9% 250 ML IVPB STA (06:04)
[2020-12-12] MEDS ORDERED: MAGNESIUM HYDROXIDE 2,400 MG/10 ML CUP PO PRN ×2 (07:38→07:43)
[2020-12-12] MEDS ORDERED: IPRATROPIUM-ALBUTEROL 3 ML NEB INHALATION PRN (07:38)
[2020-12-12] MEDS ORDERED: bisacodyL 10 MG SUPP RECTAL PRN (07:38)
[2020-12-12] MEDS ORDERED: IPRATROPIUM 0.5 MG/2.5 ML NEBU INHALATION PRN (07:38)
[2020-12-12] MEDS ORDERED: NON FORMULARY DRUG (Lactose-Reduced Food [Ensure Plus] 237 ML Liquid) PO SCH (08:00)
[2020-12-12] MEDS ORDERED: FUROSEMIDE 40 MG TAB PO SCH (08:00)
[2020-12-12] MEDS: SODIUM CHLORIDE 0.9% 1,000 ML IV SCH ×3 (08:42→20:12)
[2020-12-12] MEDS: METOPROLOL TARTRATE 25 MG TAB PO SCH ×2 (08:43→17:25)
[2020-12-12] MEDS: TAMSULOSIN 0.4 MG CAP.ER.24H PO SCH (08:43)
[2020-12-12] MEDS: HEPARIN SODIUM,PORCINE 5,000 UNIT/ML 1 ML VIAL SQ SCH ×2 (08:43→22:04)
[2020-12-12] MEDS ORDERED: LEVOFLOXACIN 750MG-D5W PMX 750 MG in DEXTROSE/WATER 1 150ML.BAG IVPB SCH (09:00)
--- NOTE | 2020-12-12 09:30 | P.HPIM ---
History of Present Illness H&P Date: 12/12/20 Chief Complaint: Fever and weakness HISTORY OF PRESENT ILLNESS This is an 80-year-old male one of my patient with a previous medical history significant for end-stage COPD oxygen dependent, chronic tobacco use and dependence, history of mesothelioma, left lung resection in 1995, hypertension and hypertensive cardio vascular disease with left ventricular hypertrophy, chronic diastolic heart failure, enlarged prostate with lower urinary tract symptoms, patient was totally independent with his activities of daily living up until 2 weeks prior to last admission. Patient was hospitalized December 04 through December 10 at which time he was treated for metabolic encephalopathy secondary to right mandibular abscess status post teeth extraction and acute kidney injury, sepsis and urinary retention. Patient was seen by Dr. Kruger for tooth extraction. Patient was also seen by Dr. Mosquera regarding urinary retention. Patient had pulled out his Richards catheter and required replacement. Patient was discharged to [facility] for subacute rehab. He was treated with Unasyn and discharged on Augmentin. At the [facility], patient was found to have increased cough and dyspnea with low-grade temperature. Patient also pulled his Richards catheter out. Patient presented to [facility] emergency center and had a temperature of 100.7, heart rate 121, respiratory rate 22, blood pressure 100/57, pulse ox 98% on 3 L nasal cannula. WBC 11.5, hemoglobin 9.1, platelet count 355. Sodium 144, potassium 4.5, chloride 109, CO2 28, BUN 19 and creatinine 1.43. C-reactive protein 81.7, LDH 811. Liver function tests were normal. Urinalysis cloudy, blood large, leukoesterase moderate, RBCs greater than 182, WBC greater than 12, bacteria rare. Chest x-ray reveals calcified pleural plaque and extensive pulmonary fibrosis. Chest appears slightly worse then 39 with some new infiltrate in both lower lobes. EKG was a sinus tachycardia and right bundle branch block. No acute ST changes. Patient was started on ceftriaxone and azithromycin and to be admitted to the [facility] floor. REVIEW OF SYSTEMS Constitutional: No fever, no chills, no night sweats. No weight change. No weakness, fatigue or lethargy. No daytime sleepiness. EENT: No headache. No blurred vision or double vision, no loss of vision. No loss of Hearing, no ringing in the ears, no dizziness. No nasal drainage or congestion. No epistaxis. No sore throat. Lungs: No shortness of breath, cough, no sputum production. No wheezing. Cardiovascular: No chest pain, no lower extremity edema. No palpitations. No paroxysmal nocturnal dyspnea. No orthopnea. No lightheadedness or dizziness. No syncopal episodes. Abdominal: No abdominal pain. No nausea, vomiting. No diarrhea. No constipation. No bloody or tarry stools.. No loss of appetite. Genitourinary: No dysuria, increased frequency, urgency. No urinary retention. Musculoskeletal: No myalgias. No muscle weakness, no gait dysfunction, no frequent falls. No back pain. No neck pain. Integumentary: No wounds, no lesions. No rash or pruritus. No unusual bruising. No change in hair or nails. Neurologic: No aphasia. No facial droop. No change in mentation. No head injury. No headache. No paralysis. No paresthesia. Psychiatric: No depression. No anxiety. No mood swings. Endocrine: No abnormal blood sugars. No weight change. No excessive sweating or thirst. No cold intolerance. SOCIAL HISTORY Patient used to follow with pack every day he smoked for many many years and he currently smoke about a few cigarettes on a daily basis. No alcohol abuse, illicit drug use. Patient lives at home with his . He has home oxygen and nebulizer area and FAMILY HISTORY Mother at age 87 of unknown cause. Father at age 87 with Alzheimer's dementia. Patient has 1 brother, 2 sisters with no major medical problems. Patient has 2 sons and 2 daughters with no major medical problems.. PHYSICAL EXAMINATION HEENT: Head is atraumatic, normocephalic, pupils were equal round reactive to light and recommendation, extraocular muscle movement were intact, sclera nonicteric, conjunctivae were slightly pale, mucous membranes of the mouth are somewhat dry, no significant swelling of the right mandible. Neck: Supple, no JVD, decreased carotid upstroke bilaterally. Chest: Decreased breath sound at bases, scattered rhonchi, no intercostal retraction, no chest wall tenderness at this time. Heart: First heart sound is depressed, second heart sounds normal, there is systolic ejection murmur 2/6 located in the left sternal border. Abdomen: Soft mild tenderness to the right upper quadrant. No rebound or guarding positive bowel sounds. Extremities: There is no edema, no calf tenderness, dorsalis pedis + bilaterally. Neurologic examination: Patient is awake alert and oriented 2. Patient opens eyes to verbal stimuli quickly falls back to sleep. ASSESSMENT AND PLAN 1. Metabolic encephalopathy and sepsis secondary to bilateral pneumonia. CAT scan of the brain ordered. Patient started on IV antibiotics. 2. Bilateral pneumonia, possible gram-negative pneumonia due to recent hospitalization. Patient started on Zosyn and Levaquin, consult with pulmonary medicine. Azithromycin and ceftriaxone at been discontinued. 3. Acute catheter associated urinary tract infection. Continue Zosyn and Levaquin. Await urine culture and blood culture. 4. Acute kidney injury secondary to acute tubular necrosis and poor oral intake. Avoid nephrotoxic agents, monitor renal function. Hold Lasix and potassium. 5. Urinary retention due to generalized weakness and enlarged prostate. Richards catheter has been replaced. Patient has on multiple occasions pulled Richards out. Continue Flomax 0.4 mg orally once every day. 6. Hypertension and hypertensive cardiovascular disease continue Lopressor 25 mg twice daily. Patient was previously taken off losartan due to acute kidney injury. 7. Sinus tachycardia. Continue metoprolol 12.5 mg orally twice every day, continue IV fluid resuscitation. 8. End-stage COPDwith chronic hypoxic respiratory failure on home O2. Continue oxygen support, continue DuoNeb 3 mg nebulization 4 times every day, continue Symbicort 160/4.5 g 2 puffs inhalation twice every day. 9. Chronic diastolic heart failure. Appears to be stable at this time. Hold Lasix and potassium. 10. Glaucoma. Continue current eyedrops. 11. Gross hematuria likely secondary to traumatic pulling on the Richards catheter. Continue IV fluid resuscitation, continue with the irrigation of the Richards catheter, urology is following. 12. DVT prophylaxis. Bilateral knee-high FARZANA hose, we'll resume heparin 5000 units subcu Wednesday every 8 hours in the next 1 or 2 days when the hematuria stops. 13. GI prophylaxis. Protonix 40 mg IV push every 24 hours. 14. Overall prognosis is guarded Patient will be admitted to the hospital for a minimum of 2 night stay. DISCHARGE PLAN Return to [facility] to complete course of subacute rehab. Impression and plan of care have been directed as dictated by the signing physician. Kenyetta Cantu nurse practitioner acting as scribe for signing physician. 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 History of Any Multi-Drug Resistant Organisms: None Reported Past Surgical History: Adenoidectomy, Tonsillectomy Additional Past Surgical History / Comment(s): Left lobectomy Past Anesthesia/Blood Transfusion Reactions: No Reported Reaction Past Psychological History: No Psychological Hx Reported Smoking Status: Former smoker Past Alcohol Use History: None Reported Past Drug Use History: None Reported - Past Family History Mother History Unknown: Yes Medications and Allergies Home Medications Medication Instructions Recorded Confirmed Type Albuterol Nebulized [Ventolin 2.5 mg INHALATION RT-QID PRN 12/03/20 12/11/20 History Nebulized] Budesonide/Formoterol Fumarate 2 puff INHALATION RT-BID@0800,1700 12/03/20 12/11/20 History [Symbicort 160-4.5 Mcg Inhaler] Ipratropium Nebulized [Atrovent 0.5 mg INHALATION RT-QID PRN 12/03/20 12/11/20 History Nebulized 0.2 MG/ML] Ipratropium/Albuter 20-100Mcg 1 puff INHALATION RT-QID PRN 12/03/20 12/11/20 History [Combivent Respimat 20-100Mcg Inhaler] Latanoprost [Xalatan 0.005%] 1 drop BOTH EYES HS@2100 12/03/20 12/11/20 History Tamsulosin HCl [Flomax] 0.4 mg PO DAILY@0800 12/03/20 12/11/20 History Tiotropium [place] [Spiriva] 1 cap INHALATION RT-DAILY@0800 12/03/20 12/11/20 History Vit C/E/Zn/Coppr/Lutein/Zeaxan 1 cap PO DAILY@1700 12/03/20 12/11/20 History [Preservision Areds 2 Softgel] Ipratropium-Albuterol Nebulize 3 ml INHALATION RT-QID #0 ml 12/10/20 12/11/20 Rx [Duoneb 0.5 mg-3 mg/3 ml Soln] Amoxic-Pot Clav 875-125Mg 1 tab PO BID@0800,1700 12/11/20 12/11/20 History [Augmentin 875-125] Furosemide [Lasix] 40 mg PO DAILY@0800 12/11/20 12/11/20 History Lactose-Reduced Food [Ensure Plus] 1 can PO TID@0800,1200,1700 12/11/20 12/11/20 History Magnesium Hydroxide [Milk of 7,200 mg PO DAILY PRN 12/11/20 12/11/20 History Magnesia Concentrate] Metoprolol Tartrate [Lopressor] 25 mg PO BID@0800,1700 12/11/20 12/11/20 History Na Phos,M-B/Na Phos,Di-Ba [Fleet 133 ml RECTAL DAILY PRN 12/11/20 12/11/20 History Adult] Potassium Chloride ER [K-Dur 20] 20 meq PO DAILY@1700 12/11/20 12/11/20 History bisacodyL [Dulcolax] 10 mg RECTAL DAILY PRN 12/11/20 12/11/20 History Allergies Allergy/AdvReac Type Severity Reaction Status Date / Time No Known Allergies Allergy Verified 12/11/20 22:36 Physical Exam Vitals: Vital Signs Temp Pulse Resp BP Pulse Ox 12/12/20 05:55 97.9 F 86 22 112/64 100 12/12/20 02:00 97.9 F 94 20 100/57 98 12/12/20 00:44 96 12/12/20 00:29 98 12/11/20 23:30 100.7 F H 112 H 22 12/11/20 23:00 24 12/11/20 22:36 120 H 20 152/90 93 L 12/11/20 21:33 100.1 F H 121 H 18 148/83 94 L Intake and Output 12/11/20 12/12/20 12/12/20 22:59 06:59 14:59 Output Total 1000 Balance -1000 Output: Urine 1000 Other: Weight 74.843 kg Results CBC & Chem 7: 12/11/20 22:21 12/11/20 22:21 Labs: Abnormal Lab Results - Last 24 Hours (Table) 12/11/20 12/11/20 12/11/20 Range/Units 22:21 22:21 22:21 WBC 11.5 H (3.8-10.6) k/uL RBC 2.87 L (4.30-5.90) m/uL Hgb 9.1 L (13.0-17.5) gm/dL Hct 27.6 L (39.0-53.0) % Neutrophils # 10.0 H (1.3-7.7) k/uL Lymphocytes # 0.5 L (1.0-4.8) k/uL Chloride 109 H (98-107) mmol/L Creatinine 1.43 H (0.66-1.25) mg/dL Glucose 114 H (74-99) mg/dL Lactate Dehydrogenase 811 H (313-618) U/L C-Reactive Protein 81.7 H (<10.0) mg/L Total Protein 5.8 L (6.3-8.2) g/dL Albumin 3.1 L (3.5-5.0) g/dL Urine Protein (Negative) Urine Blood (Negative) Ur Leukocyte Esterase (Negative) Urine RBC (0-5) /hpf Urine WBC (0-5) /hpf Urine Bacteria (None) /hpf Urine Mucus (None) /hpf 12/12/20 Range/Units 02:30 WBC (3.8-10.6) k/uL RBC (4.30-5.90) m/uL Hgb (13.0-17.5) gm/dL Hct (39.0-53.0) % Neutrophils # (1.3-7.7) k/uL Lymphocytes # (1.0-4.8) k/uL Chloride (98-107) mmol/L Creatinine (0.66-1.25) mg/dL Glucose (74-99) mg/dL Lactate Dehydrogenase (313-618) U/L C-Reactive Protein (<10.0) mg/L Total Protein (6.3-8.2) g/dL Albumin (3.5-5.0) g/dL Urine Protein 1+ H (Negative) Urine Blood Large H (Negative) Ur Leukocyte Esterase Moderate H (Negative) Urine RBC >182 H (0-5) /hpf Urine WBC 12 H (0-5) /hpf Urine Bacteria Rare H (None) /hpf Urine Mucus Rare H (None) /hpf
[2020-12-12] MEDS: IPRATROPIUM-ALBUTEROL 3 ML NEB INHALATION SCH ×4 (09:32→20:25)
[2020-12-12] MEDS: SYMBICORT 160-4.5 MCG INHALER INHALATION SCH ×2 (09:32→20:25)
--- NOTE | 2020-12-12 09:46 | CT ---
EXAMINATION TYPE: CT brain wo con DATE OF EXAM: 12/12/2020 COMPARISON: 12/03/2020 HISTORY: 80-year-old male confusion, Altered mental status. TECHNIQUE: Examination was done in axial plane without intravenous contrast. Coronal and sagittal r econstructions performed. CT DLP: 1158.4 mGycm Automated exposure control for dose reduction was used. FINDINGS: There is no evidence of acute intracranial hemorrhage, acute ischemic changes, mass, mass-effect, or extra-axial fluid collection. There is no effacement of cerebral sulci or basal subarachnoid cister ns. There is no hydrocephalus. There is no midline shift. Rutherford-white matter distinction is preserv ed. Atherosclerotic calcifications in the carotid siphons. Mild ventricular prominence secondary to centr al cerebral atrophy is unchanged. Mild white matter hypodensities in both cerebral hemispheres. Addit ional mild cerebral cortical volume loss. Paranasal sinuses and mastoid air cells are pneumatized. Orbits and globes are intact. IMPRESSION: Mild to moderate cerebral atrophy. No acute intracranial abnormality seen.
[2020-12-12] MEDS ORDERED: POTASSIUM CHLORIDE ER 20 MEQ TAB.ER PO SCH (17:00)
[2020-12-12] MEDS ORDERED: VIT A,C & E-LUTEIN-MINERALS 1 EACH TAB PO SCH (17:00)
[2020-12-12] MEDS: PIPERACILLIN-TAZOBACTAM 3.375 GM in SODIUM CHLORIDE 0.9% 100 ML IVPB SCH ×2 (17:25→23:30)
[2020-12-12] MEDS ORDERED: LATANOPROST 0.005% OPHTH DROPS 2.5 ML BTL BOTH EYES SCH (21:00)
[2020-12-13] MEDS: SODIUM CHLORIDE 0.9% 1,000 ML IV SCH ×2 (05:13→13:48)
[2020-12-13] MEDS: IPRATROPIUM-ALBUTEROL 3 ML NEB INHALATION SCH ×3 (07:22→15:25)
[2020-12-13] MEDS: SYMBICORT 160-4.5 MCG INHALER INHALATION SCH (07:22)
[2020-12-13 07:29] VITALS: RESP 18
[2020-12-13] MEDS ORDERED: PANTOPRAZOLE 40 MG TABLET PO SCH (07:30)
[2020-12-13] MEDS: HEPARIN SODIUM,PORCINE 5,000 UNIT/ML 1 ML VIAL SQ SCH (07:58)
[2020-12-13] MEDS: METOPROLOL TARTRATE 25 MG TAB PO SCH (07:58)
[2020-12-13] MEDS: PIPERACILLIN-TAZOBACTAM 3.375 GM in SODIUM CHLORIDE 0.9% 100 ML IVPB SCH ×2 (07:58→15:50)
[2020-12-13] MEDS: TAMSULOSIN 0.4 MG CAP.ER.24H PO SCH (07:58)
[2020-12-13 08:51] LABS: Basophils # (A) 0.01 X 10*3/uL (0.00-0.10); Basophils % (A) 0.1 %; Eosinophils # (A) 0.06 X 10*3/uL (0.04-0.35); Eosinophils % (A) 0.6 %; HCT 24.6 % (39.6-50.0); HGB 7.5 g/dL (13.0-17.0); Lymphocytes # (A) 0.77 X 10*3/uL (0.90-5.00); Lymphocytes % (A) 7.7 %; MCH 30.2 pg (27.0-32.0); MCHC 30.5 g/dL (32.0-37.0); MCV 99.2 fL (80.0-97.0); Mean Platelet Volume 10.9 fL (9.5-12.2); Monocytes # (A) 0.71 X 10*3/uL (0.20-1.00); Monocytes % (A) 7.1 %; Neutrophils # (A) 8.38 X 10*3/uL (1.80-7.70); Neutrophils % (A) 83.4 %; Platelet Count 436 X 10*3/uL (140-440); RBC 2.48 X 10*6/uL (4.40-5.60); WBC 10.04 X 10*3/uL (4.50-10.00)
[2020-12-13] MEDS ORDERED: AZITHROMYCIN 500 MG in SODIUM CHLORIDE 0.9% 250 ML IVPB SCH (09:00)
[2020-12-13 10:48] VITALS: BMI 25.0
[2020-12-13 12:58] VITALS: BP 121/67; TEMP 98.2
[2020-12-13 14:14] LABS: African American GFR (CKD) 58.9 (60.0-200.0); Albumin/Globulin Ratio 1.58 (1.60-3.17); Anion Gap 10.7 mmol/L (4.00-12.00); BUN/Creat Ratio 15.38 Ratio (12.00-20.00); Calcium 8.2 mg/dL (8.7-10.3); Carbon Dioxide 21.3 mmol/L (21.6-31.8); Globulin 1.9 g/dL (1.6-3.3); Non-African American GFR(CKD) 50.8 (60.0-200.0); Total Bilirubin 0.2 mg/dL (0.3-1.2); Total Protein 4.9 g/dL (6.2-8.2)
[2020-12-13 15:30] VITALS: PULSE 100
--- NOTE | 2020-12-13 16:27 | P.CNPUL ---
History of Present Illness Consult date: 12/13/20 Requesting physician: Jewell Zamora Reason for consult: dyspnea, cough, COPD, hypoxemia, pneumonia, abnormal CXR/CT Chief complaint: Fever. History of present illness: This is an 80-year-old male, that was brought into the emergency department, from shelter, via EMS, on December 11, with increasing cough, shortness of breath, either, and mental status changes. According to the ER obey, the mando lacey was a very poor historian. He denied any chest pain or abdominal pain. The patient was recently in the hospital. The patient did not test positive for COVID infection. The patient was evaluated in the emergency department and admitted with a diagnosis of dehydration, pneumonia, urinary retention, fever, acute kidney injury, and possible COVID 19 infection. When we saw the patient on the floor, the patient was on 4 L nasal O2, and saturations are 98%. He did have a wet congested sounding cough. He does not appear to be in significant respiratory distress. He was a reasonably good historian when I saw him. He was a heavy smoker in the past. Current white count is 10.04, hemoglobin 7.5, hematocrit 24.6, platelet count 436,000. PT INR and PTT were all normal. Sodium 145, potassium 4, chloride is 113, CO2 21, anion gap 11, BUN 20, creatinine 1.3. Urinalysis, was suggestive of a urinary tract infection. Chest x-ray showed a calcified pleural plaque, and pulmonary fibrotic changes, as well as some new lower lobe infiltrates. 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 Review of Systems REVIEW OF SYSTEMS: CONSTITUTIONAL: Low-grade fever, weakness. NEUROLOGIC: [ Negative.] HEENT: [ Negative.] CARDIAC: [Negative.] PULMONARY: Cough, and shortness of breath. GI: Poor oral intake. : [Negative.] RHEUMATOLOGIC: [ Negative.] IMMUNOLOGIC: [ Negative.] ENDOCRINE: [Negative. ] DERMATOLOGIC: [Negative.] 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 History of Any Multi-Drug Resistant Organisms: None Reported Past Surgical History: Adenoidectomy, Tonsillectomy Additional Past Surgical History / Comment(s): Left lobectomy Past Anesthesia/Blood Transfusion Reactions: No Reported Reaction Past Psychological History: No Psychological Hx Reported Smoking Status: Former smoker Past Alcohol Use History: None Reported Past Drug Use History: None Reported - Past Family History Mother History Unknown: Yes Medications and Allergies Home Medications Medication Instructions Recorded Confirmed Type Albuterol Nebulized [Ventolin 2.5 mg INHALATION RT-QID PRN 12/03/20 12/11/20 History Nebulized] Budesonide/Formoterol Fumarate 2 puff INHALATION RT-BID@0800,1700 12/03/20 12/11/20 History [Symbicort 160-4.5 Mcg Inhaler] Ipratropium Nebulized [Atrovent 0.5 mg INHALATION RT-QID PRN 12/03/20 12/11/20 History Nebulized 0.2 MG/ML] Ipratropium/Albuter 20-100Mcg 1 puff INHALATION RT-QID PRN 12/03/20 12/11/20 History [Combivent Respimat 20-100Mcg Inhaler] Latanoprost [Xalatan 0.005%] 1 drop BOTH EYES HS@2100 12/03/20 12/11/20 History Tamsulosin HCl [Flomax] 0.4 mg PO DAILY@0800 12/03/20 12/11/20 History Tiotropium [place] [Spiriva] 1 cap INHALATION RT-DAILY@0800 12/03/20 12/11/20 History Vit C/E/Zn/Coppr/Lutein/Zeaxan 1 cap PO DAILY@1700 12/03/20 12/11/20 History [Preservision Areds 2 Softgel] Ipratropium-Albuterol Nebulize 3 ml INHALATION RT-QID #0 ml 12/10/20 12/11/20 Rx [Duoneb 0.5 mg-3 mg/3 ml Soln] Amoxic-Pot Clav 875-125Mg 1 tab PO BID@0800,1700 12/11/20 12/11/20 History [Augmentin 875-125] Furosemide [Lasix] 40 mg PO DAILY@0800 12/11/20 12/11/20 History Lactose-Reduced Food [Ensure Plus] 1 can PO TID@0800,1200,1700 12/11/20 12/11/20 History Magnesium Hydroxide [Milk of 7,200 mg PO DAILY PRN 12/11/20 12/11/20 History Magnesia Concentrate] Metoprolol Tartrate [Lopressor] 25 mg PO BID@0800,1700 12/11/20 12/11/20 History Na Phos,M-B/Na Phos,Di-Ba [Fleet 133 ml RECTAL DAILY PRN 12/11/20 12/11/20 History Adult] Potassium Chloride ER [K-Dur 20] 20 meq PO DAILY@1700 12/11/20 12/11/20 History bisacodyL [Dulcolax] 10 mg RECTAL DAILY PRN 12/11/20 12/11/20 History Allergies Allergy/AdvReac Type Severity Reaction Status Date / Time No Known Allergies Allergy Verified 12/11/20 22:36 Physical Exam Osteopathic Statement: *. No significant issues noted on an osteopathic structural exam other than those noted in the History and Physical/Consult. Vitals: Vital Signs Temp Pulse Pulse Resp BP BP Pulse Ox 12/13/20 15:39 100 12/13/20 15:25 100 12/13/20 12:57 98.2 F 101 H 18 121/67 98 12/13/20 12:06 105 H 135/73 94 L 12/13/20 11:06 96 12/13/20 10:59 100 12/13/20 08:00 18 12/13/20 07:32 96 12/13/20 07:28 98.0 F 108 H 18 122/66 92 L 12/13/20 07:23 92 12/13/20 02:55 98.3 F 102 H 20 140/71 93 L 12/12/20 23:15 98.1 F 94 16 109/60 94 L 12/12/20 22:54 98.2 F 100 16 107/62 94 L 12/12/20 20:36 84 12/12/20 20:25 92 95 12/12/20 20:06 92 18 92/67 97 12/12/20 17:33 98.2 F 101 H 20 95/59 96 Intake and Output 12/13/20 12/13/20 12/13/20 06:59 14:59 22:59 Output Total 850 300 Balance -850 -300 Output: Urine 850 300 Other: Voiding Method Indwelling Catheter Indwelling Catheter Weight 74.843 kg 74.843 kg No acute distress, oriented 3. The patient's on nasal O2 at 4 L with a saturation of 98%. He does have a wet congested cough. No conversational dyspnea. HEENT examination is grossly unremarkable. Mucous membranes are moist. Neck supple. Full range of motion. No adenopathy thyromegaly or neck vein distention. Cardiovascular examination reveals regular rhythm rate. S1-S2 normal. No S3 or S4. No discernible murmur noted. Heart rate is irregular beats per minute. Lungs reveal coarse bilateral rhonchi. Breath sounds equal bilaterally. There are some basilar crackles noted bilaterally as well. No wheezes are appreciated. Breath sounds are diminished throughout. Abdomen soft bowel sounds are heard. No masses or tenderness. Extremities are intact. No cyanosis clubbing or edema. Skin is without rash or lesion. Neurologic examination is brief but nonfocal. Results - Laboratory Findings CBC and BMP: 12/13/20 06:01 12/13/20 06:01 PT/INR, D-dimer PT 10.7 sec (9.0-12.0) 12/11/20 22:21 INR 1.0 (<1.2) 12/11/20 22:21 Abnormal lab findings: Abnormal Labs 12/11/20 12/11/20 12/11/20 22:21 22:21 22:21 WBC 11.5 H RBC 2.87 L Hgb 9.1 L Hct 27.6 L MCV MCHC RDW Immature Gran # Neutrophils # 10.0 H Lymphocytes # 0.5 L Chloride 109 H Carbon Dioxide Creatinine 1.43 H Est GFR (CKD-EPI)AfAm Est GFR (CKD-EPI)NonAf Glucose 114 H Calcium Total Bilirubin Lactate Dehydrogenase 811 H C-Reactive Protein 81.7 H Total Protein 5.8 L Albumin 3.1 L Albumin/Globulin Ratio Urine Protein Urine Blood Ur Leukocyte Esterase Urine RBC Urine WBC Urine Bacteria Urine Mucus 12/12/20 12/13/20 12/13/20 02:30 06:01 06:01 WBC 10.04 H RBC 2.48 L Hgb 7.5 L Hct 24.6 L MCV 99.2 H MCHC 30.5 L RDW 16.0 H Immature Gran # 0.11 H Neutrophils # 8.38 H Lymphocytes # 0.77 L Chloride 113 H Carbon Dioxide 21.3 L Creatinine Est GFR (CKD-EPI)AfAm 58.9 L Est GFR (CKD-EPI)NonAf 50.8 L Glucose 125 H Calcium 8.2 L Total Bilirubin 0.2 L Lactate Dehydrogenase C-Reactive Protein Total Protein 4.9 L Albumin 3.00 L Albumin/Globulin Ratio 1.58 L Urine Protein 1+ H Urine Blood Large H Ur Leukocyte Esterase Moderate H Urine RBC >182 H Urine WBC 12 H Urine Bacteria Rare H Urine Mucus Rare H - Diagnostic Findings Chest x-ray: image reviewed Assessment and Plan Assessment: Possible bibasilar pneumonia, which may be healthcare acquired. Likely urinary tract infection/urosepsis. Asbestos associated pleural and diaphragmatic plaques. Possible underlying asbestosis. History of COPD from previous heavy tobacco use. History of hyperlipidemia. History of hypertension. History of osteoarthritis. BPH. 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 Previous heavy tobacco use. Plan: Plan dated 12/13/2020. The patient is currently on Levaquin and Zosyn. That is more than adequate antibiotic coverage. We'll make sure the patient's on albuterol sulfate and ipratropium bromide, along with Pulmicort, and Perforomist. Additional recommendations and suggestions are forthcoming. I don't believe the patient would benefit from corticosteroids at this time. Most of the changes on his chest x-ray are chronic in nature. He likely has asbestosis, and certainly has asbestos associated pleural plaques. Additional recommendations and suggestions are forthcoming. Prognosis is guarded. We will continue to follow make recommendations for appropriate. Time with Patient: Greater than 30
--- NOTE | 2020-12-13 17:37 | P.DS ---
Providers Date of admission: 12/12/20 01:21 Expected date of discharge: 12/13/20 Attending physician: Jewell Zamora Consults: 12/12/20 08:24 Consult Physician Routine Consulting Provider: Carlos Mays Reason/Comments: bilat pneumonia Do you want consulting provider notified?: Yes Primary care physician: Jewell Zamora Hospital Course: 80-year-old male, that was brought into the emergency department, from half-way, via EMS, on December 11, with increasing cough, shortness of breath, either, and mental status changes. According to the ER obey, the patient was a very poo r historian. He denied any chest pain or abdominal pain. The patient was recently in the hospital. The patient did not test positive for COVID infection. The patient was evaluated in the emergency department and admitted with a diagnosis of dehydration, pneumonia, urinary retention, fever, acute kidney injury, and possible COVID 19 infection. When we saw the patient on the floor, the patient was on 4 L nasal O2, and saturations are 98%. He did have a wet congested sounding cough. He does not appear to be in significant respiratory distress. He was a reasonably good historian when I saw him. He was a heavy smoker in the past. Current white count is 10.04, hemoglobin 7.5, hematocrit 24.6, platelet count 436,000. PT INR and PTT were all normal. Sodium 145, potassium 4, chloride is 113, CO2 21, anion gap 11, BUN 20, creatinine 1.3. Urinalysis, was suggestive of a urinary tract infection. Chest x-ray showed a calcified pleural plaque, and pulmonary fibrotic changes, as well as some new lower lobe infiltrates. 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 Patient admitted with the following diagnosis Possible bibasilar pneumonia, which may be healthcare acquired. Likely urinary tract infection/urosepsis. Asbestos associated pleural and diaphragmatic plaques. Possible underlying asbestosis. History of COPD from previous heavy tobacco use. History of hyperlipidemia. History of hypertension. History of osteoarthritis. BPH. 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 Previous heavy tobacco use. Patient was treated with IV Zosyn and Levaquin; patient and family decided for patient to go home with hospice care Patient Condition at Discharge: Fair Plan - Discharge Summary Discharge Rx Participant: No New Discharge Prescriptions: Continue Tiotropium [place] [Spiriva] 1 cap INHALATION RT-DAILY@0800 Budesonide/Formoterol Fumarate [Symbicort 160-4.5 Mcg Inhaler] 2 puff INHALATION RT-BID@0800,1700 Vit C/E/Zn/Coppr/Lutein/Zeaxan [Preservision Areds 2 Softgel] 1 cap PO DAILY@1700 Latanoprost [Xalatan 0.005%] 1 drop BOTH EYES HS@2100 Tamsulosin HCl [Flomax] 0.4 mg PO DAILY@0800 Ipratropium/Albuter 20-100Mcg [Combivent Respimat 20-100Mcg Inhaler] 1 puff INHALATION RT-QID PRN PRN Reason: Shortness Of Breath Ipratropium Nebulized [Atrovent Nebulized 0.2 MG/ML] 0.5 mg INHALATION RT-QID PRN PRN Reason: Shortness Of Breath Albuterol Nebulized [Ventolin Nebulized] 2.5 mg INHALATION RT-QID PRN PRN Reason: Shortness Of Breath Ipratropium-Albuterol Nebulize [Duoneb 0.5 mg-3 mg/3 ml Soln] 3 ml INHALATION RT-QID #0 ml Na Phos,M-B/Na Phos,Di-Ba [Fleet Adult] 133 ml RECTAL DAILY PRN PRN Reason: Constipation bisacodyL [Dulcolax] 10 mg RECTAL DAILY PRN PRN Reason: Constipation Magnesium Hydroxide [Milk of Magnesia Concentrate] 7,200 mg PO DAILY PRN PRN Reason: Constipation Metoprolol Tartrate [Lopressor] 25 mg PO BID@0800,1700 Lactose-Reduced Food [Ensure Plus] 1 can PO TID@0800,1200,1700 Amoxic-Pot Clav 875-125Mg [Augmentin 875-125] 1 tab PO BID@0800,1700 Potassium Chloride ER [K-Dur 20] 20 meq PO DAILY@1700 Furosemide [Lasix] 40 mg PO DAILY@0800 Discharge Medication List Albuterol Nebulized [Ventolin Nebulized] 2.5 mg INHALATION RT-QID PRN 12/03/20 [History] Budesonide/Formoterol Fumarate [Symbicort 160-4.5 Mcg Inhaler] 2 puff INHALATION RT-BID@0800,1700 12/03/20 [History] Ipratropium Nebulized [Atrovent Nebulized 0.2 MG/ML] 0.5 mg INHALATION RT-QID PRN 12/03/20 [History] Ipratropium/Albuter 20-100Mcg [Combivent Respimat 20-100Mcg Inhaler] 1 puff INHALATION RT-QID PRN 12/03/20 [History] Latanoprost [Xalatan 0.005%] 1 drop BOTH EYES HS@2100 12/03/20 [History] Tamsulosin HCl [Flomax] 0.4 mg PO DAILY@79912/03/20 [History] Tiotropium [place] [Spiriva] 1 cap INHALATION RT-DAILY@79912/03/20 [History] Vit C/E/Zn/Coppr/Lutein/Zeaxan [Preservision Areds 2 Softgel] 1 cap PO DAILY@169912/03/20 [History] Ipratropium-Albuterol Nebulize [Duoneb 0.5 mg-3 mg/3 ml Soln] 3 ml INHALATION RT-QID #0 ml 12/10/20 [Rx] Amoxic-Pot Clav 875-125Mg [Augmentin 875-125] 1 tab PO BID@0800,1700 12/11/20 [History] Furosemide [Lasix] 40 mg PO DAILY@0812/11/20 [History] Lactose-Reduced Food [Ensure Plus] 1 can PO TID@0800,1200,1700 12/11/20 [History] Magnesium Hydroxide [Milk of Magnesia Concentrate] 7,200 mg PO DAILY PRN 12/11/20 [History] Metoprolol Tartrate [Lopressor] 25 mg PO BID@0800,1700 12/11/20 [History] Na Phos,M-B/Na Phos,Di-Ba [Fleet Adult] 133 ml RECTAL DAILY PRN 12/11/20 [History] Potassium Chloride ER [K-Dur 20] 20 meq PO DAILY@169912/11/20 [History] bisacodyL [Dulcolax] 10 mg RECTAL DAILY PRN 12/11/20 [History] Follow up Appointment(s)/Referral(s): Jewell Zamora MD [Primary Care Provider] - 1-2 days [facility], [REFERRING] - Activity/Diet/Wound Care/Special Instructions: *RN to call [facility] at [phone] once patient is discharged or if EMS is going to be late. [facility] has arranged a hospital bed, oxygen, wheelchair, and bedside table at home. Discharge Disposition: HOME WITH HOSPICE
[2020-12-13] MEDS ORDERED: FORMOTEROL FUMARATE 20 MCG/2 ML NEBU INHALATION SCH (20:00)
[2020-12-13] MEDS ORDERED: BUDESONIDE 1 MG/2 ML NEBU INHALATION SCH (20:00)
--- NOTE | 2020-12-16 06:53 | CDI ---
Documentation Clarification Form Date: 12/16/20 From: Lauren Mesa Phone: Admit Date: 12/12/2020 01:21:00 AM Patient Name: Joe Hough Visit Number: [id number] Discharge Date: 12/13/2020 05:12:00 PM ATTENTION: The Clinical Documentation Specialists (CDI) and [facility] Coding Staff appreciate your assistance in clarifying documentation. Please respond to the clarification below the line at the bottom and electronically sign. The CDI & [facility] Coding staff will review the response and follow-up if needed. Please note: Queries are made part of the Legal Health Record. If you have any questions, please contact the author of this message via ITS. Dr. Jewel Gordillo, Your patient has the documented diagnosis of sepsis, acute catheter associated urinary tract infection and possible gram negative pneumonia and in the H&P & DS. A relationship between diagnoses cannot be assumed unless documented as such by the attending physician. In order to capture the severity of condition; please document the relationship, if any, between these diagnoses. History/Risk Factors: indwelling catheter, COPD, chronic hypoxic respiratory failure, HTN w chronic diastolic CHF Clinical Indicators: Metabolic encephalopathy and sepsis secondary to bilateral pneumonia. Metabolic encephalopathy and sepsis secondary to bilateral pneumonia. Urine culture grew Anna albicans. Treatment: IV fluids, IV Solu-Medrol, IV Rocephin, IV Azithromycin, IV Levofloxacin, IV Zosyn Please clarify and document your clinical opinion in the progress notes and discharge summary if any relationship (due to, caused by, secondary to) exists between these two diagnoses. Please include clinical findings supporting your diagnosis. Sepsis due to gram-negative pneumonia Sepsis due to acute catheter associated UTI, organism causing infection Other explanation of clinical findings (please specify) Unable to determine (no explanation for clinical findings) Sepsis due to gram-negative pneumonia MTDD
== END 2020-12-13 17:12 | disposition hospice, home (50) | DRG 871 ==
LOC: EC 21:09 → 4SSUR 12-12 01:21
PROVIDERS: ADMIT Internal Medicine; ATTEND Internal Medicine
DX: A41.50 Gram-negative sepsis, unspecified (principal); J15.6 Pneumonia due to other Gram-negative bacteria; N17.0 Acute kidney failure with tubular necrosis; G93.41 Metabolic encephalopathy; J96.11 Chronic respiratory failure with hypoxia; J44.0 Chronic obstructive pulmonary disease with (acute) lower respiratory infection; T83.518A Infection and inflammatory reaction due to other urinary catheter, initial encounter; I50.32 Chronic diastolic (congestive) heart failure; S37.39XA Other injury of urethra, initial encounter; N39.0 Urinary tract infection, site not specified; I11.0 Hypertensive heart disease with heart failure; J84.10 Pulmonary fibrosis, unspecified; Z51.5 Encounter for palliative care; Z20.822 Contact with and (suspected) exposure to COVID-19; R31.0 Gross hematuria; E86.0 Dehydration; J92.0 Pleural plaque with presence of asbestos; Y95 Nosocomial condition; E78.5 Hyperlipidemia, unspecified; R33.8 Other retention of urine; N40.1 Benign prostatic hyperplasia with lower urinary tract symptoms; I45.10 Unspecified right bundle-branch block; M27.2 Inflammatory conditions of jaws; M19.90 Unspecified osteoarthritis, unspecified site; R00.0 Tachycardia, unspecified; H40.9 Unspecified glaucoma; Z99.81 Dependence on supplemental oxygen; Z79.51 Long term (current) use of inhaled steroids; Z79.899 Other long term (current) drug therapy; Z85.831 Personal history of malignant neoplasm of soft tissue; Z90.89 Acquired absence of other organs; Z98.890 Other specified postprocedural states; Z90.2 Acquired absence of lung [part of]; Z87.891 Personal history of nicotine dependence; Y84.6 Urinary catheterization as the cause of abnormal reaction of the patient, or of later complication, without mention of misadventure at the time of the procedure; Z82.0 Family history of epilepsy and other diseases of the nervous system
CPT/HCPCS: 36415; 51701; 70450; 71045; 80053; 81001; 83605; 83615; 83735; 84145; 85025; 85610; 85730; 86140; 87040; 87086; 87635; 93005; 94640; 94760; 96361; 96365; 96366; 96367; 96375; 99285